=== PATIENT | female | born 1930 | race Caucasian/White ===

== ENCOUNTER 2016-09-23 15:34 | Inpatient (IN) | payer MEDICARE, OTHER ==
[~2016-09-23] VITALS: Ht 149.9 cm; Wt 74.8 kg
[~2016-09-23 15:34] MED LIST: ACET325T16 PO; AMLO5TAB2 PO; ASPI81TA2 PO; BISA5TAB4 PO; DIPH25CA58 PO; DIPH25TA PO; DOCU-27 PO; DONE10TA7 PO; DOXY100T PO; FURO20TA3 PO; GEMF600T3 PO; HYDR-2666 PO; HYDR25TA9 PO; INSU100I27 SQ; INSU100V10 SQ; ISOS20TA4 PO; ISOS30TA4 PO; LISI40TA PO; LUTE20CA2 PO; MELO-150 PO; MULT-245 PO; MULT-300 PO; SIMV20TA3 PO
[2016-09-23] MEDS ORDERED: PANT40TA3 PO (17:48)
[2016-09-23] MEDS ORDERED: PRED-220 PO (17:48)
[2016-09-23] MEDS ORDERED: AMLO5TAB2 PO (17:48)
[2016-09-23] MEDS ORDERED: GEMF600T3 PO (17:48)
[2016-09-23] MEDS ORDERED: INSU100C4 SQ (17:48)
[2016-09-23] MEDS ORDERED: ISOS30TA4 PO (17:48)
[2016-09-23] MEDS ORDERED: FURO20TA3 PO (17:48)
[2016-09-23] MEDS ORDERED: ALLO100T PO (17:48)
[2016-09-23] MEDS ORDERED: DOXY25TA PO (18:24)
[2016-09-23] MEDS ORDERED: SIMV20TA3 PO (18:24)
[2016-09-23] MEDS ORDERED: potassium PO (18:24)
[2016-09-23] MEDS ORDERED: MV,I66.7 PO (18:24)
[2016-09-23] MEDS ORDERED: DEXTROSE 50% 25 GM / 50ML DISP.SYRIN. IV PRN (18:45)
[2016-09-23 19:00] VITALS: BP 135/66
[2016-09-23 19:31] LABS: BASO # 0.1 x10^3/uL (0.0-0.2); BASO % 1 % (0-3); EOS % 0 % (0-3); HEMATOCRIT 39.3 % (36.0-47.0); HEMOGLOBIN 12.3 g/dL (12.0-15.5); LYMPH # 1.1 x10^3/uL (1.0-4.8); LYMPH % 11 % (24-48); MEAN CORPUSCULAR HEMOGLOBIN 28 pg (25-35); MEAN CORPUSCULAR HGB CONC 31 g/dL (31-37); MEAN CORPUSCULAR VOLUME 89 fL (79-100); MONO % 7 % (0-9); NEUT % 81 % (31-73); PLATELET COUNT 217 x10^3/uL (140-400); RED BLOOD COUNT 4.44 x10^6/uL (3.50-5.40); RED CELL DISTRIBUTION WIDTH 20.1 % (11.5-14.5); WHITE BLOOD COUNT 9.8 x10^3/uL (4.0-11.0)
[2016-09-23] MEDS: INSULIN ASPART 300 UNITS/3 ML INSULN.PEN SQ SCH ×2 (19:33→19:35)
[2016-09-23 19:42] LABS: INR 1.2 (0.8-1.1); PROTHROMBIN TIME PATIENT 14.6 SEC (11.7-14.0)
[2016-09-23 19:49] VITALS: BP 155/69
[2016-09-23] MEDS: IV 1/2 NORMAL SALINE 1,000 ML IV SCH (19:53)
[2016-09-23 19:59] LABS: ALBUMIN 3.6 g/dL (3.4-5.0); ALBUMIN/GLOBULIN RATIO 1.2 (1.0-1.7); CALCIUM 9.1 mg/dL (8.5-10.1); CREATININE 1.8 mg/dL (0.6-1.0); GFR 26.7; POTASSIUM 3.3 mmol/L (3.5-5.1); TOTAL BILIRUBIN 0.8 mg/dL (0.2-1.0); TOTAL PROTEIN 6.7 g/dL (6.4-8.2)
[2016-09-23 20:13] LABS: PLT ESTIMATE ADEQUATE (ADEQUATE)
[2016-09-23 20:14] LABS: ANISOCYTOSIS MOD; OVALOCYTES FEW; POLYCHROMASIA SLIGHT
[2016-09-23] MEDS: DOXYLAMINE SUCCINATE 25 MG TABLET PO SCH (21:38)
[2016-09-23] MEDS: SIMVASTATIN 20 MG TABLET PO SCH (21:38)
[2016-09-23] MEDS: DOCUSATE SODIUM 100 MG CAPSULE PO SCH (21:38)
[2016-09-23] MEDS: DONEPEZIL HCL 10 MG TABLET. PO SCH (21:39)
[2016-09-23] MEDS: ASPIRIN 81 MG TAB.CHEW PO SCH (21:39)
[2016-09-23 23:00] VITALS: BP 118/68
[2016-09-23] MEDS: ACETAMINOPHEN 325 MG TABLET. PO PRN (23:36)
[2016-09-24] VITALS (16 sets, daily range): BP systolic 98–188; BP diastolic 32–95
[2016-09-24 05:30] LABS: CALCIUM 9.1 mg/dL (8.5-10.1); CREATININE 1.6 mg/dL (0.6-1.0); GFR 30.6
[2016-09-24 05:33] LABS: POTASSIUM 2.8 mmol/L (3.5-5.1)
[2016-09-24] MEDS ORDERED: POTASSIUM CHLORIDE 20 MEQ TABLET.ER. PO ONE (06:00)
--- NOTE | 2016-09-24 06:30 | CONS ---
DATE OF CONSULTATION: HISTORY OF PRESENT ILLNESS: This is an 86-year-old white female, who is being hospitalized to upgrade permanent pacemaker to a Bi-V AICD. I had first seen this patient in 2013, when she moved from [place]. At that time, she had had open heart surgery. She had no significant complaints. Her EF was normal. She was then hospitalized in January of 2015. She underwent coronary arteriograms at that time. The graft to the LAD and ramus were patent. The vein graft to the circumflex coronary artery was totally occluded. Her EF had dropped from normal to 35%-40%. She was then hospitalized again in May of 2016. At that time, she came in with severe bradycardia. She was placed on an epinephrine drip. Her heart rate and blood pressure improved, but her heart rate came up ____ beats per minute. She clearly needed a pacemaker. A Bi-V pacemaker could not be placed, because Dr. Crabtree, who does the Bi-V pacemaker, was not in town at that time. She needed a pacemaker urgently. A dual-chamber pacemaker was thus placed by Dr. Beltran. During that time, she also had intermittent atrial fibrillation, but she remained predominantly in sinus rhythm. I recently saw her in the office in September. She had gone into atrial fibrillation sometime in July and had remained in it. The patient complained of some shortness of breath. The daughter felt that she had deteriorated significantly recently and would get short of breath with minimal exertion. An echocardiogram showed that her EF had dropped to 20%. She also had severe mitral regurgitation and moderate aortic regurgitation. An EKG showed a wide QRS complex. She was in atrial fibrillation. I talked to the daughter about ____ was one of them was to place a Bi-V pacemaker, which might improve her left ventricular systolic function, and then cardioverter. The daughter and the patient were agreeable. I did talk to them about the AICD. I did not get a definite answer from the patient. At first, she said that if she was going to , she would rather just . She also said "but I want to live to be able to see my children." Finally, she asked me to talk to her daughter and I will have to talk to both of them in the morning. We will then decide as to rather this should be a Bi-V AICD, just a Bi-V pacemaker. She has had renal dysfunction. Her creatinine has been high at times. She was hospitalized the previous night because the creatinine was 1.8 for hydration, because the iodine will have to be used during the insertion of the Bi-V pacemaker. Her present medications are: 1. Novolin insulin 6 units before each meal. 2. Simvastatin 20 mg a day. 3. Donepezil 10 mg at night. 4. Aspirin 81 mg a day. 5. Lutein. 6. Prednisone. 7. Allopurinol 100 mg a day. 8. Potassium. 9. Furosemide 40 mg a day. PHYSICAL EXAMINATION: GENERAL: She was lying in bed, flat. VITAL SIGNS: The heart rate was 70 per minute and regular. The blood pressure was 150/70. LUNGS: Clear. HEART: The heart sounds were normal. There was a grade 1/6 systolic murmur at the apex. There was no S3 or S4. EXTREMITIES: There is no swelling of the legs. IMPRESSION: 1. Ischemic cardiomyopathy with ejection fraction of 20%. 2. Wide QRS complexes. 3. New onset atrial fibrillation. 4. Functioning dual-chamber pacemaker that needs to be upgraded to a Bi-V pacemaker and question of AICD placement. We will first proceed with the changing the pacemaker. After that, she will be placed on anticoagulation, which she is agreed to and when she has been on adequately anticoagulated for 4 weeks. We will try and see if we could cardiovert. This may not be able to be sustained because of her age. However, because she gets short of breath with minimal exertion. She may benefit with cardioversion. In any case, we will see how she reacts to changing her to a Bi-V pacemaker. Thank you for asking me to see her. JOHAN VAIL MD DR: CLAUDIA/peter JOB#: [id number] / [id number]
[2016-09-24] MEDS: INSULIN ASPART 300 UNITS/3 ML INSULN.PEN SQ SCH ×6 (07:30→17:53)
[2016-09-24] MEDS ORDERED: INSULIN ASPART 300 UNITS/3 ML INSULN.PEN SQ SCH ×2 (07:30→08:00)
--- NOTE | 2016-09-24 08:10 | EKG ---
[facility] [address] [place] [address] Test Date: 2016-09-24 Test Time: 07:59:25 Pat Name: EDWARD EASLEY Department: Room: [employer] Gender: F Ophthalmologist: : [id number] Requested By: JOHAN VAIL Order Number: [id number] Reading MD: Measurements Intervals [place] Rate: 87 P: 30 MD: 240 QRS: 128 QRSD: 148 T: -69 QT: 414 QTc: 505 Interpretive Statements SINUS RHYTHM VENTRICULAR PREMATURE COMPLEX(ES) INTERPOLATED ATRIAL PREMATURE COMPLEX(ES) PROLONGED MD INTERVAL ABNORMAL RIGHT AXIS DEVIATION NON SPECIFIC INTRAVENTRICULAR BLOCK QRS(T) CONTOUR ABNORMALITY CONSISTENT WITH ANTERIOR INFARCT PROBABLY OLD CONSISTENT WITH HIGH LATERAL INFARCT PROBABLY OLD ABNORMAL ECG
--- NOTE | 2016-09-24 08:20 | PDOC ---
GENERAL General: admitted for hydration prior to bi-pacemaker conversion today. K+ 2.8 this am and replacement given. has cough productive of lots phlegm for several months now and will ask pulm to see for same while here. Problems: VITAL SIGNS Vital Signs: Vital Signs Date Time Temp Pulse Resp B/P Pulse Ox O2 Delivery O2 Flow Rate FiO2 09/24/16 07:54 Nasal Cannula 2.0 09/24/16 07:15 96.4 88 18 152/84 99 96.4 I & O I & O Intake and Output 09/24/16 07:00 Output Total 175 ml Balance -175 ml Output Urine Total 175 ml ALLERGIES Allergies: Allergies Coded Allergies Type Severity Reaction Last Updated Verified Penicillins Allergy Intermediate 01/26/15 Yes ibuprofen Allergy Intermediate 01/26/15 Yes MEDS Medications: Current Medications Medications (Trade) Dose Ordered Sig/Melisa Start Time Stop Time Status Last Admin Dose Admin Acetaminophen (Tylenol) 650 mg PRN Q6HRS PRN 09/23/16 18:45 09/23/16 23:36 650 MG Allopurinol (Zyloprim) 100 mg DAILY 09/24/16 09:00 Aspirin (Children'S Aspirin) 81 mg HS 09/23/16 21:00 09/23/16 21:39 81 MG Dextrose 12.5 gm PRN Q15MIN PRN 09/23/16 18:45 Docusate Sodium (Colace) 100 mg HS 09/23/16 21:00 09/23/16 21:38 100 MG Donepezil HCl (Aricept) 10 mg HS 09/23/16 21:00 09/23/16 21:39 10 MG Doxylamine Succinate (Unisom) 25 mg HS 09/23/16 21:00 09/23/16 21:38 25 MG Furosemide (Lasix) 30 mg DAILY 09/24/16 09:00 Insulin Aspart (Novolog) 5 units TIDBFRMEAL 09/23/16 19:15 09/23/16 19:33 5 UNITS Multivitamins/ Calcium (Thera M Plus) 1 tab DAILY 09/24/16 09:00 Multivitamins/ Minerals (Ocuvite Lutein) 1 cap DAILY 09/24/16 09:00 Non-Formulary Medication 99 mg DAILY 09/24/16 09:00 09/24/16 09:00 DC Pantoprazole Sodium (Protonix) 40 mg DAILY 09/24/16 09:00 Potassium Chloride (Klor-Con) 40 meq 1X ONCE 09/24/16 06:00 09/24/16 06:01 DC 09/24/16 06:09 40 MEQ Prednisone (Prednisone) 10 mg DAILY 09/24/16 09:00 Simvastatin (Zocor) 20 mg QHS 09/23/16 21:00 09/23/16 21:38 20 MG Sodium Chloride (Iv Sodium Chloride 0.45%) 1,000 ml @ 50 mls/hr Q20H 09/23/16 19:00 09/23/16 19:53 50 MLS/HR LAB Lab: Laboratory Tests Test 09/23/16 17:26 09/23/16 19:20 09/23/16 19:30 09/24/16 03:40 Glucose (Fingerstick) 462mg/dL (70-99) 467mg/dL (70-99) White Blood Count 9.8x10^3/uL (4.0-11.0) Red Blood Count 4.44x10^6/uL (3.50-5.40) Hemoglobin 12.3g/dL (12.0-15.5) Hematocrit 39.3% (36.0-47.0) Mean Corpuscular Volume 89fL (79-100) Mean Corpuscular Hemoglobin 28pg (25-35) Mean Corpuscular Hemoglobin Concent 31g/dL (31-37) Red Cell Distribution Width 20.1% (11.5-14.5) Platelet Count 217x10^3/uL (140-400) Neutrophils (%) (Auto) 81% (31-73) Lymphocytes (%) (Auto) 11% (24-48) Monocytes (%) (Auto) 7% (0-9) Eosinophils (%) (Auto) 0% (0-3) Basophils (%) (Auto) 1% (0-3) Neutrophils # (Auto) 7.9x10^3uL (1.8-7.7) Lymphocytes # (Auto) 1.1x10^3/uL (1.0-4.8) Monocytes # (Auto) 0.7x10^3/uL (0.0-1.1) Eosinophils # (Auto) 0.0x10^3/uL (0.0-0.7) Basophils # (Auto) 0.1x10^3/uL (0.0-0.2) Platelet Estimate Adequate (ADEQUATE) Polychromasia Slight Anisocytosis Mod Ovalocytes Few Prothrombin Time 14.6SEC (11.7-14.0) Prothromb Time International Ratio 1.2 (0.8-1.1) Activated Partial Thromboplast Time 26SEC (24-38) Sodium Level 140mmol/L (136-145) 143mmol/L (136-145) Potassium Level 3.3mmol/L (3.5-5.1) 2.8mmol/L (3.5-5.1) Chloride Level 99mmol/L (98-107) 102mmol/L (98-107) Carbon Dioxide Level 32mmol/L (21-32) 31mmol/L (21-32) Anion Gap 9 (6-14) 10 (6-14) Blood Urea Nitrogen 28mg/dL (7-20) 29mg/dL (7-20) Creatinine 1.8mg/dL (0.6-1.0) 1.6mg/dL (0.6-1.0) Estimated GFR (Cockcroft-Gault) 26.7 30.6 BUN/Creatinine Ratio 16 (6-20) Glucose Level 466mg/dL (70-99) 147mg/dL (70-99) Calcium Level 9.1mg/dL (8.5-10.1) 9.1mg/dL (8.5-10.1) Total Bilirubin 0.8mg/dL (0.2-1.0) Aspartate Amino Transf (AST/SGOT) 48U/L (15-37) Alanine Aminotransferase (ALT/SGPT) 41U/L (14-59) Alkaline Phosphatase 89U/L (46-116) Total Protein 6.7g/dL (6.4-8.2) Albumin 3.6g/dL (3.4-5.0) Albumin/Globulin Ratio 1.2 (1.0-1.7) Test 09/24/16 07:45 Glucose (Fingerstick) 160mg/dL (70-99) PERRY NORTH MD Sep 24, 2016 08:20
--- NOTE | 2016-09-24 08:52 | RAD ---
Portable chest, 09/24/2016: History: Congestive heart failure Comparison is made to a study from 05/12/2016. The patient is rotated to the left. The right-sided central venous catheter has been removed. A left-sided transvenous pacemaker remains in place with 2 leads extending into the right heart. There has been a previous median sternotomy. The heart is generally enlarged. There is calcific plaquing of the aorta. The pulmonary vascularity is at the upper limits of normal. There is minimal left suprahilar and basilar atelectasis/infiltrate. There is pleural thickening in the left lateral costophrenic compatible with a small amount of pleural fluid. This appears to have worsened since the previous study, although patient rotation may be contributing to this appearance. No right-sided pleural fluid is seen. IMPRESSION: 1. Cardiomegaly with borderline vascular congestion. 2. Ongoing or recurrent small left pleural effusion and underlying left basilar atelectasis/infiltrate.
[2016-09-24] MEDS ORDERED: BIOTIN PO SCH (09:00)
[2016-09-24] MEDS: FUROSEMIDE 20 MG TABLET PO SCH (09:00)
[2016-09-24] MEDS ORDERED: FOLIC ACID PO SCH (09:00)
[2016-09-24] MEDS ORDERED: MV IRON MIN PO SCH (09:00)
[2016-09-24] MEDS: PREDNISONE 10 MG TABLET PO SCH (09:00)
[2016-09-24] MEDS: MULTIVITAMIN EYE FORMULA CAPSULE. PO SCH (09:00)
[2016-09-24] MEDS: ALLOPURINOL 100 MG TABLET. PO SCH (09:00)
[2016-09-24] MEDS ORDERED: [UNRECOGNIZED DRUG - OTHER] PO SCH (09:00)
[2016-09-24] MEDS: PANTOPRAZOLE 40 MG TABLET. PO SCH (09:00)
[2016-09-24] MEDS: MULTIVITAMIN with MINERAL TABLET. PO SCH (09:00)
[2016-09-24] MEDS ORDERED: BACITRACIN 50,000 UNIT in IV NORMAL SALINE 250ML 250 ML IRR ONE (10:00)
[2016-09-24] MEDS ORDERED: VANCOMYCIN 1GM IVPB FOR OMNI 250 ML IV ONE (10:00)
[2016-09-24] MEDS ORDERED: IODIXANOL 320 MG/ML 100 ML VIAL. IART ONE (11:00)
[2016-09-24] MEDS ORDERED: LIDOCAINE 2%/EPI 1:100,000 20 ML VIAL. IJ ONE (11:00)
[2016-09-24] MEDS ORDERED: FENTANYL PF 100 MCG/2 ML VIAL. IV ONE (11:15)
[2016-09-24] MEDS ORDERED: MIDAZOLAM HCL/PF 5 MG/5 ML VIAL IV ONE (11:15)
[2016-09-24] MEDS ORDERED: NO ANTICOAGULANT THERAPY. MC PRN (12:00)
--- NOTE | 2016-09-24 12:06 | CARD ---
APPROVED REPORT EXAM Successful [employer] pacemaker upgrade to biventricular ICD/FLAG CAR DRIVER-D INDICATIONS Primary prevention of sudden cardiac and cardiac resynchronization therapy in a patient with se harmony ischemic cardiomyopathy, NYHA class 2 chronic systolic heart failure, bundle branch block PROCEDURE After explaining the risks, benefits, and alternative options, informed consent was obtained from the patient. The patient was brought to the cardiac catheterization lab and the left chest and shoulder were prepp ed and draped in the usual fashion. 30 mL of 2% lidocaine was infiltrated into the skin and subcutaneous tissues for local anesthesia. An incision was made over the previous scar and using blunt dissection and cautery, the capsule was exp osed, opened and the previously placed generator removed. The right ventricular lead was capped. The right atrial lead was interrogated and found to be functioning well. Venous access was obtained in th e left subclavian vein and a 9 [place] coronary sinus sheath was inserted. With the help of contrast i njections using ESTEFANIA 2 catheter within the right atrium, the coronary sinus was engaged and the sheat h advanced into it. Venogram identified the appropriate posterolateral vein for placement of the left ventricular lead. Subsequently, a [employer] quadripolar left ventricular lead model 1458Q/75 serial number [id number] w as advanced under fluoroscopic guidance and the tip was positioned in the posterolateral vein. Follow ing this, venous access was obtained again in the left subclavian vein and 9.5 [place]guill[place] sheath was inse rted. A [employer] bipolar active fixation right ventricular lead model 7120Q/58 serial number [id number] was positioned in the right ventricular apex under fluoroscopy guidance. The leads were secured i nto place and along with the previously placed right atrial lead attached to a [employer] biventricul ar ICD/FLAG CAR DRIVER-D generator model NG5999/40Q serial number [id number]. This was placed in the pocket though s ubsequently closed in 3 layers. Hemostasis was secured. The left ventricular lead showed sensing amplitude of 11.2 mV, impedance of 988 ohms and threshold of 0.9 V. The right ventricular lead showed a sensing amplitude of 8.0 mV, impedance of 568 ohms and a threshold of 0.8 V. Defibrillation thresholds were not measured since patient had underlying atrial f ibrillation and was not adequately anticoagulated. Patient tolerated the procedure well. There were n o immediate complications. CONCLUSION Successful [employer] pacemaker upgrade to biventricular ICD/FLAG CAR DRIVER-D for primary prevention of sudden c ardiac and cardiac resynchronization therapy.
--- NOTE | 2016-09-24 15:37 | RAD ---
Portable chest, 09/24/2016, 3:26 PM: History: Post pacemaker insertion Comparison is made to a study from earlier the same day. There has been a previous median sternotomy. A new pacemaker generator has been inserted. 2 additional transvenous leads have been placed. The heart is enlarged. The pulmonary vascularity is at the upper limits of normal. There is a persistent left basilar opacity obscuring the hemidiaphragm compatible with pleural fluid and underlying atelectasis/infiltrate. The right chest remains clear. There is no evidence of pneumothorax. IMPRESSION: 1. Pacemaker revision as described above. 2. Moderate persistent left basilar opacity. 3. No evidence of pneumothorax.
[2016-09-24] MEDS: ACETAMINOPHEN 325 MG TABLET. PO PRN ×2 (17:44→22:21)
[2016-09-24] MEDS: IV 1/2 NORMAL SALINE 1,000 ML IV SCH (17:45)
[2016-09-24] MEDS: DONEPEZIL HCL 10 MG TABLET. PO SCH (20:44)
[2016-09-24] MEDS: ASPIRIN 81 MG TAB.CHEW PO SCH (20:44)
[2016-09-24] MEDS: DOCUSATE SODIUM 100 MG CAPSULE PO SCH (20:44)
[2016-09-24] MEDS: SIMVASTATIN 20 MG TABLET PO SCH (20:44)
--- NOTE | 2016-09-24 20:44 | PDOC ---
Provider Note Provider Note Bi- V AICD was placed by Dr. Crabtree this morning. The AICD was not checked This would involve giving her electrical current that could convert her from atrial fibrillation to sinus rhythm. Since she is not anticoagulated there is a risk of thromboembolism. She developed a hematoma after the AICD. She cannot be anticoagulated for the electrical cardioversion until this is resolved. Significantly hypokalemic, oral potassium was given. Magnesium was also low and will replace. JOHAN VAIL MD Sep 24, 2016 20:44
[2016-09-24] MEDS: DOXYLAMINE SUCCINATE 25 MG TABLET PO SCH (20:45)
[2016-09-24] MEDS ORDERED: DIPHENHYDRAMINE HCL 25 MG CAPSULE PO ONE (22:30)
[2016-09-24] MEDS ORDERED: VANCOMYCIN 1 GM in IV NORMAL SALINE 250ML 250 ML IV ONE (23:30)
[2016-09-25] VITALS (7 sets, daily range): BP systolic 96–159; BP diastolic 48–72
[2016-09-25 03:51] LABS: CALCIUM 8.7 mg/dL (8.5-10.1); CREATININE 1.5 mg/dL (0.6-1.0); POTASSIUM 3.6 mmol/L (3.5-5.1)
[2016-09-25] MEDS: INSULIN ASPART 300 UNITS/3 ML INSULN.PEN SQ SCH ×6 (08:00→17:35)
[2016-09-25] MEDS ORDERED: MAGNESIUM SULFATE 1GM 100 ML IV ONE (08:00)
[2016-09-25] MEDS: FUROSEMIDE 20 MG TABLET PO SCH (09:04)
[2016-09-25] MEDS: MULTIVITAMIN with MINERAL TABLET. PO SCH (09:05)
[2016-09-25] MEDS: PANTOPRAZOLE 40 MG TABLET. PO SCH (09:05)
[2016-09-25] MEDS: MULTIVITAMIN EYE FORMULA CAPSULE. PO SCH (09:05)
[2016-09-25] MEDS: PREDNISONE 10 MG TABLET PO SCH (09:05)
[2016-09-25] MEDS: ALLOPURINOL 100 MG TABLET. PO SCH (09:05)
--- NOTE | 2016-09-25 09:34 | RAD ---
Indication post pacemaker placement. Assess for potential complication. PA and lateral views of the chest were obtained. Comparison is made to an examination one day earlier. Postoperative changes are noted as well as a defibrillating and tripolar cardiac pacing device. No complication is seen associated with the ICD device. No pneumothorax is seen. There is a left pleural effusion similar to the previous exam. IMPRESSION: Persistent left pleural fluid. No pneumothorax
[2016-09-25] MEDS: IV 1/2 NORMAL SALINE 1,000 ML IV SCH (12:24)
--- NOTE | 2016-09-25 12:34 | PDOC ---
Provider Note Provider Note She bruises very easily. Developed ecchymosis from where the IV was removed. Developed a small hematoma over the pacemaker site. Small amount of bleeding staining the dressing 2 inch into half an inch. Has ecchymosis all over the left chest. Threshold of the right ventricular lead has increased as of yesterday. It was 0.75 V at 0.5 ms and now is that 2 V at 1 ms. The output of the right ventricular lead has been increased to 4 V at 1 ms and she is Bi- V pacing. If we are to cardiovert her she would need to be anticoagulated. Will request hematology to see for possible bleeding disorder. Daughter is quite nervous about being placed on anticoagulation prior to the cardioversion. Renal functions did not deteriorate infarct are better with IV hydration. Consider discharge tomorrow. Daughters want to take her home rather than to a jail facility. JOHAN VAIL MD Sep 25, 2016 12:34
--- NOTE | 2016-09-25 13:03 | PDOC ---
Provider Note Provider Note pacer in , no new probs- labs ok, a little dry from lasix- dc plans per SANDRA Goodrich MD Sep 25, 2016 13:03
--- NOTE | 2016-09-25 16:03 | PDOC ---
Provider Note Provider Note Hem-Onc consult: 1. Ecchymoses due to ASA. No evidence to suggest bleeding disorder. No contraindication for anticoagulation. See dictation. DONA PEREIRA MD Sep 25, 2016 16:03
[2016-09-25] MEDS: ACETAMINOPHEN 325 MG TABLET. PO PRN (17:36)
[2016-09-25] MEDS: ASPIRIN 81 MG TAB.CHEW PO SCH (20:39)
[2016-09-25] MEDS: DONEPEZIL HCL 10 MG TABLET. PO SCH (20:39)
[2016-09-25] MEDS: DOXYLAMINE SUCCINATE 25 MG TABLET PO SCH (20:40)
[2016-09-25] MEDS: DOCUSATE SODIUM 100 MG CAPSULE PO SCH (20:40)
[2016-09-25] MEDS ORDERED: DIPHENHYDRAMINE HCL 25 MG CAPSULE PO PRN (21:00)
[2016-09-25] MEDS: SIMVASTATIN 20 MG TABLET PO SCH (21:04)
[2016-09-26] MEDS: ACETAMINOPHEN 325 MG TABLET. PO PRN (03:15)
[2016-09-26 03:30] VITALS: BP 160/58
[2016-09-26 05:48] LABS: ALBUMIN 2.8 g/dL (3.4-5.0); ALBUMIN/GLOBULIN RATIO 1.1 (1.0-1.7); CALCIUM 8.7 mg/dL (8.5-10.1); CREATININE 1.4 mg/dL (0.6-1.0); GFR 35.7; POTASSIUM 3.1 mmol/L (3.5-5.1); TOTAL BILIRUBIN 0.8 mg/dL (0.2-1.0); TOTAL PROTEIN 5.4 g/dL (6.4-8.2)
[2016-09-26 07:22] VITALS: BP 143/66
[2016-09-26] MEDS: INSULIN ASPART 300 UNITS/3 ML INSULN.PEN SQ SCH ×4 (08:00→12:57)
[2016-09-26] MEDS: PANTOPRAZOLE 40 MG TABLET. PO SCH (09:14)
[2016-09-26] MEDS: PREDNISONE 10 MG TABLET PO SCH (09:14)
[2016-09-26] MEDS: ALLOPURINOL 100 MG TABLET. PO SCH (09:14)
[2016-09-26] MEDS: MULTIVITAMIN EYE FORMULA CAPSULE. PO SCH (09:14)
[2016-09-26] MEDS: MULTIVITAMIN with MINERAL TABLET. PO SCH (09:14)
--- NOTE | 2016-09-26 09:43 | PDOC ---
Provider Note Provider Note VSS, NO NEW PROBS- k+ 3.1 , GIVE 20 MEQ NOW- DC PER SANDRA TELLES MD Sep 26, 2016 09:43
[2016-09-26] MEDS ORDERED: POTASSIUM CHLORIDE 20 MEQ TABLET.ER. PO ONE (10:00)
[2016-09-26] MEDS: FUROSEMIDE 20 MG TABLET PO SCH (10:07)
[2016-09-26 10:24] VITALS: BP 119/55
[2016-09-26] MEDS ORDERED: POTA10TA10 PO (11:54)
[2016-09-26] MEDS ORDERED: POTASSIUM CHLORIDE 10 MEQ TABLET.ER. PO ONE (12:00)
--- NOTE | 2016-09-26 12:44 | HP ---
ADMIT DATE: 09/23/2016 CHIEF COMPLAINT AND HISTORY OF PRESENT ILLNESS: This is an 86-year-old white female admitted for upgrade of her permanent pacemaker to a biventricular AICD because of ongoing troubles with shortness of breath, cough, felt to be due to congestive heart failure with underlying atrial fibrillation, diastolic function with severe mitral regurgitation and wide QRS complex. She also carries a history of some renal insufficiency with diuresis. PAST MEDICAL HISTORY: As that is documented above. In addition, she has diabetes mellitus, hyperlipidemia, history of gout, ____ computer and have been addressed. ALLERGIES: SHE IS ALLERGIC TO PENICILLIN, IBUPROFEN, AND ATENOLOL. SOCIAL HISTORY: She is , nonsmoker, nondrinker, does not use drugs. She lives with her daughter. FAMILY HISTORY: Noncontributory. REVIEW OF SYSTEMS: As mentioned above. PHYSICAL EXAMINATION: GENERAL: She is a well-developed, well-nourished, pleasant white female in no acute distress at rest. VITAL SIGNS: Stable. She is afebrile. HEENT: Unremarkable. NECK: Supple, without any thyromegaly. CHEST: Clear to auscultation and percussion. HEART: Regular on my examination with a grade 1/6 systolic murmur. ABDOMEN: Soft and nontender without hepatosplenomegaly or mass. EXTREMITIES: Without cyanosis, clubbing or edema. NEUROLOGIC: She is intact. IMPRESSION: Ischemic cardiomyopathy with wide QRS complexes and underlying atrial fibrillation with a functioning dual chamber pacemaker that needs to upgraded to a biventricular. PLAN: The patient has been admitted. She will be rehydrated because of her renal insufficiency. Cardiology will see her ____ the morning following admission. PERRY NORTH MD DR: NEERAJ/peter JOB#: [id number] / [id number]
[2016-09-26 13:42] LABS: INR 1.2 (0.8-1.1); PROTHROMBIN TIME PATIENT 14.4 SEC (11.7-14.0)
--- NOTE | 2016-09-26 15:01 | PDOC ---
Provider Note Provider Note She feels well and she and her family are very anxious to go home today. There is a small hematoma over the pacemaker site which is diffuse. There is probably a collection of blood over the medial and superior aspect of the pacemaker measuring about 1 inch into 1 inch that is rather firm. There is no active bleeding and the incision is intact. Light dressing was placed over the pacemaker incision site. We will have home health to check it regularly. The patient and family did not want to wait till tomorrow. Her pacemaker will be interrogated on 09/30 to see if there is any further change in the threshold. Appreciate Dr. Guzman's consult. Anticoagulation will not be initiated at least until after about 2 weeks. JOHAN VAIL MD Sep 26, 2016 15:01
== END 2016-09-26 12:30 | disposition home health service (06) | DRG 227 ==
LOC: 5 NORTH 16:48 → 2 SOUTH 09-24 13:59
PROVIDERS: ADMIT Family Medicine; ATTEND Family Medicine
PROC: 0JH609Z Insertion of Cardiac Resynchronization Defibrillator Pulse Generator into Chest Subcutaneous Tissue and Fascia, Open Approach (ICD-10-PCS; principal; 2016-09-24)
PROC: 02HK3KZ Insertion of Defibrillator Lead into Right Ventricle, Percutaneous Approach (ICD-10-PCS; 2016-09-24)
PROC: 02HL3KZ Insertion of Defibrillator Lead into Left Ventricle, Percutaneous Approach (ICD-10-PCS; 2016-09-24)
PROC: 0JPT0PZ Removal of Cardiac Rhythm Related Device from Trunk Subcutaneous Tissue and Fascia, Open Approach (ICD-10-PCS; 2016-09-24)
DX: I25.5 Ischemic cardiomyopathy (principal); I50.22 Chronic systolic (congestive) heart failure; E11.9 Type 2 diabetes mellitus without complications; E78.5 Hyperlipidemia, unspecified; I48.91 Unspecified atrial fibrillation; M10.9 Gout, unspecified; Z79.82 Long term (current) use of aspirin; Z88.0 Allergy status to penicillin; Z88.8 Allergy status to other drugs, medicaments and biological substances; I45.4 Nonspecific intraventricular block; N18.3 Chronic kidney disease, stage 3 (moderate)
CPT/HCPCS: 33225; 33230; 36415; 71010; 71020; 80048; 80053; 82947; 83735; 85007; 85027; 85384; 85610; 85730; 93005; 93566; C1882; C1892; C1895; C1900; G0378; J1815; J2250; J3010; J3370; J3475; J3490; J7050; J7512; Q0163; J7030

== ENCOUNTER → 2016-10-05 | Outpatient (CLI) | payer MEDICARE, OTHER ==
[2016-09-26 10:24] VITALS: BP 119/55
[~2016-10-05] MED LIST changes: +ALLO100T PO; +APIX2.5T PO; +CARV3.12 PO; +CARV3.122 PO; +DOXY25TA PO; +INSU100C4 SQ; +INSU100V13 SQ; +IPRA3AMP NEB; +LEVO50TA5 PO; +LOSA25TA4 PO; +MV,I66.7 PO; +PANT40TA3 PO; +POTA10TA10 PO; +PRED-220 PO; +potassium PO
--- NOTE | 2016-10-05 09:55 | RAD ---
CT of the chest without contrast, 10/05/2016: History: Pleural effusion Noncontrast scans were obtained as requested. There are has been a previous median sternotomy. A left-sided transvenous pace maker is in place with multiple leads extending into the heart. There is extensive calcific plaquing of the thoracic aorta and its branches including the coronary arteries. The heart is mildly enlarged. No mediastinal adenopathy is seen. There is a small hiatal hernia. There is a moderate sized left pleural effusion with mild to moderate underlying atelectasis in the left lung base. A small amount of fluid extends into the oblique fissure. There is a small amount of right-sided pleural fluid. No significant right lung atelectasis or infiltrate is seen. There is moderate hypertrophic spurring in the spine with bony bridging at multiple levels. The appearance is compatible with DISH. There are also unusual calcifications in the paraspinous muscles posteriorly. IMPRESSION: 1. Moderate sized left pleural effusion with mild underlying atelectasis in the left base. 2. Small right pleural effusion. 3. Cardiomegaly with extensive calcific plaquing of the aorta and coronary arteries. PQRS Compliance Statement: One or more of the following individualized dose reduction techniques were utilized for this examination: 1. Automated exposure control 2. Adjustment of the mA and/or kV according to patient size 3. Use of iterative reconstruction technique
== END | disposition home or self-care (01) ==
LOC: CT 09:02
PROVIDERS: ATTEND Internal Medicine Pulmonary Disease
DX: J90 Pleural effusion, not elsewhere classified (principal); I51.7 Cardiomegaly; I25.10 Atherosclerotic heart disease of native coronary artery without angina pectoris
CPT/HCPCS: 71250

== ENCOUNTER → 2016-10-07 | Outpatient (CLI) | payer MEDICARE, OTHER ==
[2016-09-26 10:24] VITALS: BP 119/55
[~2016-10-07] MED LIST changes: -APIX2.5T PO; +BARIUM SULFATE 40% 148 GM PWD PO ONE; -CARV3.12 PO; -CARV3.122 PO; -INSU100V13 SQ; -IPRA3AMP NEB; -LEVO50TA5 PO; -LOSA25TA4 PO
--- NOTE | 2016-10-07 12:26 | RAD ---
Video dysphasia study, 10/07/2016: History: Dysphagia, persistent cough, possible aspiration The swallowing mechanism was examined. Fluoroscopically in the lateral projection while the patient ingested a variety of food materials mixed with barium. 2.2 minutes of fluoroscopy time was utilized. One fluoroscopic video loop was recorded by a member of the speech Department. The patient demonstrated good oral control of the barium materials. When ingesting the thin liquids there was normal passage of the majority of the barium bolus through the cervical esophagus. When ingesting the thicker materials there was a small amount of vallecular residue intermittently following swallowing. There is only slight contrast coating of the posterior aspect of the epiglottis during the exam. No eugenio aspiration was observed. The patient ingested the barium coated solids without difficulty. IMPRESSION: No evidence of aspiration.
== END | disposition home or self-care (01) ==
LOC: RAD 11:23
PROVIDERS: ATTEND Internal Medicine Pulmonary Disease
DX: R13.10 Dysphagia, unspecified (principal); R05 Cough
CPT/HCPCS: 74230; 92611; G8996; G8997; G8998

== ENCOUNTER → 2016-10-08 | Outpatient (CLI) | payer MEDICARE, OTHER ==
[2016-09-26 10:24] VITALS: BP 119/55
[~2016-10-08] MED LIST changes: -BARIUM SULFATE 40% 148 GM PWD PO ONE
[2016-10-08 12:03] LABS: CALCIUM 9.5 mg/dL (8.5-10.1); CREATININE 1.6 mg/dL (0.6-1.0); GFR 30.6; POTASSIUM 4.4 mmol/L (3.5-5.1)
== END | disposition home or self-care (01) ==
LOC: LAB 10:50
PROVIDERS: ATTEND Specialist
DX: I50.9 Heart failure, unspecified (principal)
CPT/HCPCS: 36415; 80048

== ENCOUNTER 2016-10-12 20:06 | Inpatient (IN) | payer MEDICARE, OTHER ==
[~2016-10-12] VITALS: Ht 152.4 cm; Wt 72.3 kg
[2016-10-12 22:04] LABS: BILIRUBIN,URINE NEGATIVE (NEG); GLUCOSE,URINE >=1000 mg/dL (NEG); NITRITE,URINE NEGATIVE (NEG); PH,URINE 5.5; PROTEIN,URINE 30 mg/dL (NEG-TRACE); UROBILINOGEN,URINE 0.2 mg/dL (0.2 mg/dL)
[2016-10-12 22:15] LABS: BACTERIA,URINE 0 /HPF (0-FEW); SQUAMOUS EPITHELIAL CELL,UR FEW /LPF
[2016-10-12 22:16] LABS: BASO # 0.1 x10^3/uL (0.0-0.2); BASO % 1 % (0-3); EOS % 0 % (0-3); HEMATOCRIT 34.3 % (36.0-47.0); HEMOGLOBIN 11.1 g/dL (12.0-15.5); LYMPH # 1.5 x10^3/uL (1.0-4.8); LYMPH % 14 % (24-48); MEAN CORPUSCULAR HEMOGLOBIN 28 pg (25-35); MEAN CORPUSCULAR HGB CONC 33 g/dL (31-37); MEAN CORPUSCULAR VOLUME 85 fL (79-100); MONO % 10 % (0-9); NEUT % 76 % (31-73); PLATELET COUNT 176 x10^3/uL (140-400); RED BLOOD COUNT 4.03 x10^6/uL (3.50-5.40); RED CELL DISTRIBUTION WIDTH 20.3 % (11.5-14.5); WHITE BLOOD COUNT 11.1 x10^3/uL (4.0-11.0)
[2016-10-12 22:31] LABS: ALBUMIN 3.4 g/dL (3.4-5.0); CALCIUM 9.1 mg/dL (8.5-10.1); CREATININE 1.6 mg/dL (0.6-1.0); DIRECT BILIRUBIN 0.3 mg/dL (0.0-0.2); GFR 30.6; POTASSIUM 4.1 mmol/L (3.5-5.1); TOTAL BILIRUBIN 0.7 mg/dL (0.2-1.0); TOTAL PROTEIN 6.3 g/dL (6.4-8.2)
[2016-10-12 22:33] LABS: ANISOCYTOSIS MOD; PLT ESTIMATE ADEQUATE (ADEQUATE); POLYCHROMASIA SLIGHT; TOXIC GRANULATION SLIGHT; TOXIC VACUOLATION SLIGHT
[2016-10-12] MEDS ORDERED: MORPHINE SULFATE 2 MG/ML DISP.SYRIN. IV PRN (23:15)
[2016-10-12] MEDS ORDERED: ONDANSETRON PF 4 MG/2 ML VIAL. IV PRN (23:15)
[2016-10-12] MEDS ORDERED: INSULIN REGULAR 100 UNIT/ML 10ML VIAL. IV ONE (23:30)
[2016-10-12] MEDS ORDERED: IV NORMAL SALINE 500ML BAG 500 ML IV ONE (23:30)
[2016-10-12] MEDS ORDERED: INSULIN DETEMIR 300 UNITS/3 ML INSULN.PEN. SQ ONE (23:30)
[2016-10-13] VITALS (8 sets, daily range): BP systolic 103–151; BP diastolic 52–75
[2016-10-13] MEDS: IV NORMAL SALINE 1000ML BAG 1,000 ML IV SCH ×3 (00:55→12:17)
--- NOTE | 2016-10-13 02:00 | PHYS DOC ---
Past Medical History Past Medical History: A-Fib, Diabetes-Type II, Hypertension Additional Past Medical Histor: bipass 97 Past Surgical History: Coronary Bypass Surgery, Other Additional Past Surgical Histo: bipass 97, lt nipple and cysts removed from breast, L CHEST PACEMAKER Alcohol Use: Occasionally Drug Use: None Adult General Chief Complaint Chief Complaint: HYPERGLYCEMIA HPI HPI 86-year-old female presenting to the emergency department today with her glycemia. She reports taking NovoLog 3 times for a total of 15 units without relief. She reports her meter reading high. She does not take any long-acting insulin at home. Otherwise she denies any other symptoms other than generalized weakness. She denies headache fevers chills abdominal pain. She did have a pacemaker placed 2 weeks ago. Onset today. Location generalized. Duration intermittent. No alleviating factors present. Review of systems is negative for chest pain shortness of breath nausea vomiting fevers chills cough. All other review of systems is negative unless otherwise noted in history of present illness. Review of Systems Review of Systems SEE ABOVE. Current Medications Current Medications Current Medications Medications (Trade) Dose Ordered Sig/Melisa Start Time Stop Time Status Last Admin Dose Admin Insulin Detemir (Levemir) 20 units 1X ONCE 10/12/16 23:30 10/12/16 23:31 DC 10/12/16 23:33 20 UNITS Insulin Human Regular (Novolin R Vial) 10 unit 1X ONCE 10/12/16 23:30 10/12/16 23:31 DC 10/12/16 23:41 10 UNIT Morphine Sulfate 2 mg 2 mg PRN Q2HR PRN 10/12/16 23:15 10/13/16 23:14 Ondansetron HCl (Zofran) 4 mg PRN Q8HRS PRN 10/12/16 23:15 10/13/16 23:14 Sodium Chloride (Iv Sodium Chloride 0.9% 500ml Bag) 500 ml @ 500 mls/hr 1X ONCE 10/12/16 23:30 10/13/16 00:29 DC 10/12/16 23:33 500 MLS/HR Allergies Allergies Allergies Coded Allergies Type Severity Reaction Last Updated Verified Penicillins Allergy Intermediate 01/26/15 Yes ibuprofen Allergy Intermediate 01/26/15 Yes Physical Exam Physical Exam Constitutional: Well developed, well nourished, no acute distress, non-toxic appearance. HENT: Normocephalic, atraumatic, bilateral external ears normal, oropharynx moist, no oral exudates, nose normal. [] Eyes: PERRLA, EOMI, conjunctiva normal, no discharge. [] Neck: Normal range of motion, no tenderness, supple, no stridor. Chest wall: The patient's left upper chest wall shows incision from previous pacemaker placement that is clean dry and intact. Not erythematous. No cellulitis present. Cardiovascular:Heart rate regular rhythm, no murmur [] Lungs & Thorax: Bilateral breath sounds clear to auscultation Abdomen: Bowel sounds normal, soft, no tenderness, no masses, no pulsatile masses. [] Skin: Warm, dry, no erythema, no rash. Back: No tenderness, no CVA tenderness. [] Extremities: No tenderness, no cyanosis, no clubbing, ROM intact, no edema. Neurologic: Alert and oriented X 3, normal motor function, normal sensory function, no focal deficits noted. [] Psychologic: Affect normal, judgement normal, mood normal. [] Current Patient Data Vital Signs Vital Signs Date Time Temp Pulse Resp B/P Pulse Ox O2 Delivery O2 Flow Rate FiO2 10/12/16 20:25 98.7 76 20 156/80 94 Room Air 98.7 Lab Values Laboratory Tests Test 10/12/16 20:23 10/12/16 22:04 10/12/16 23:19 10/13/16 01:28 Urine Collection Type Unknown Urine Color Yellow Urine Clarity Clear Urine pH 5.5 Urine Specific [place] >=1.030 Urine Protein 30mg/dL (NEG-TRACE) Urine Glucose (UA) >=1000mg/dL (NEG) Urine Ketones (Stick) Negativemg/dL (NEG) Urine Blood Small (NEG) Urine Nitrite Negative (NEG) Urine Bilirubin Negative (NEG) Urine Urobilinogen Dipstick 0.2mg/dL (0.2 mg/dL) Urine Leukocyte Esterase Negative (NEG) Urine RBC 3-5/HPF (0-2) Urine WBC 1-4/HPF (0-4) Urine Squamous Epithelial Cells Few/LPF Urine Bacteria 0/HPF (0-FEW) White Blood Count 11.1x10^3/uL (4.0-11.0) H Red Blood Count 4.03x10^6/uL (3.50-5.40) Hemoglobin 11.1g/dL (12.0-15.5) L Hematocrit 34.3% (36.0-47.0) L Mean Corpuscular Volume 85fL (79-100) Mean Corpuscular Hemoglobin 28pg (25-35) Mean Corpuscular Hemoglobin Concent 33g/dL (31-37) Red Cell Distribution Width 20.3% (11.5-14.5) H Platelet Count 176x10^3/uL (140-400) Neutrophils (%) (Auto) 76% (31-73) H Lymphocytes (%) (Auto) 14% (24-48) L Monocytes (%) (Auto) 10% (0-9) H Eosinophils (%) (Auto) 0% (0-3) Basophils (%) (Auto) 1% (0-3) Neutrophils # (Auto) 8.4x10^3uL (1.8-7.7) H Lymphocytes # (Auto) 1.5x10^3/uL (1.0-4.8) Monocytes # (Auto) 1.0x10^3/uL (0.0-1.1) Eosinophils # (Auto) 0.0x10^3/uL (0.0-0.7) Basophils # (Auto) 0.1x10^3/uL (0.0-0.2) Toxic Granulation Slight Toxic Vacuolation Slight Platelet Estimate Adequate (ADEQUATE) Polychromasia Slight Anisocytosis Mod Sodium Level 136mmol/L (136-145) Potassium Level 4.1mmol/L (3.5-5.1) Chloride Level 99mmol/L (98-107) Carbon Dioxide Level 31mmol/L (21-32) Anion Gap 6 (6-14) Blood Urea Nitrogen 38mg/dL (7-20) H Creatinine 1.6mg/dL (0.6-1.0) H Estimated GFR (Cockcroft-Gault) 30.6 Glucose Level 505mg/dL (70-99) *H Serum Osmolality 308mOsm/Kg (279-304) H Calcium Level 9.1mg/dL (8.5-10.1) Total Bilirubin 0.7mg/dL (0.2-1.0) Direct Bilirubin 0.3mg/dL (0.0-0.2) H Aspartate Amino Transferase (AST) 174U/L (15-37) H Alanine Aminotransferase (ALT) 85U/L (14-59) H Alkaline Phosphatase 156U/L (46-116) H Troponin I Quantitative 0.070ng/mL (0.000-0.055) Total Protein 6.3g/dL (6.4-8.2) L Albumin 3.4g/dL (3.4-5.0) Lipase 341U/L (73-393) Glucose (Fingerstick) 468mg/dL (70-99) H 178mg/dL (70-99) H Laboratory Tests 10/12/16 22:04 Laboratory Tests 10/12/16 22:04 EKG EKG [] EKG shows paced rhythm. Radiology/Procedures Radiology/Procedures [] Course & Med Decision Making Course & Med Decision Making Pertinent Labs and Imaging studies reviewed. (See chart for details) [] 86-year-old female presenting to the emergency department with hyperglycemia. Afebrile with a normal pulse. Pertinent physical exam findings show normal clean dry and intact incision from previous pacemaker placement. Otherwise nontender abdomen. One work obtained which showed dehydration on specific gravity urine. Not suggestive of infection. Chemistry panel elevated glucose. No evidence of acidosis. BUN and creatinine elevated as well. Troponin just above the reference range of normal. The patient was then admitted to our hospital for treatment of hyperglycemia, dehydration further evaluation workup and care. Dragon Disclaimer Dragon Disclaimer This electronic medical record was generated, in whole or in part, using a voice recognition dictation system. Departure Departure Impression: Primary Impression: Hyperglycemia Additional Impression: Dehydration Disposition: ADMITTED INPATIENT Admitting Physician: Perry North Condition: STABLE Referrals: PERRY NORTH MD (PCP) Problem Qualifiers EVELYNE DARLING MD Oct 13, 2016 02:00
[2016-10-13] MEDS ORDERED: ASPIRIN 81 MG TAB.CHEW PO ONE (02:30)
--- NOTE | 2016-10-13 03:26 | ACF ---
Admission Forms Criteria GENERAL ADMISSION CRITERIA (Place 'X' for any and all applicable criteria): Admission is indicated for ANY ONE of the following: [ ]I. Hemodynamic instability as indicated by ANY ONE of the following(1)(2) (3)(4)(5): [ ]a) Vital sign abnormality not readily corrected by appropriate treatment within 12 to 24 hours indicated by ANY ONE of the following: [ ]i) Hypotension [ ]ii) Symptomatic Tachycardia unresponsive to treatment (eg , analgesia, fluids, sedation as indicated) [ ]iii) Orthostatic vital sign changes unresponsive to treatment (eg, fluids) [ ]b) Vital sign abnormality that is severe indicated by ANY ONE of the following: [ ]i) Inadequate perfusion indicated by ANY ONE of the following: [ ]1) Lactic acidosis (greater than 2 mmol/L) [ ]2) New abnormal capillary refill (greater than 3 seconds) [ ]3) Other metabolic acidosis (arterial pH less than 7.35) not otherwise explained [ ]4) Reduced urine output [ ]5) Altered mental status [ ]6) Myocardial Ischemia [ ]v) Mean arterial pressure[A] less than 60 mm Hg [ ]vi) Mean arterial pressure[A] less than 70 mm Hg after 30 minutes of appropriate treatment (eg, fluid resuscitation) [ ]vii) IV inotropic or vasopressor medication required to maintain adequate blood pressure or perfusion [ ]viii) Sustained heart rate greater than 120 beats per minute in adult or child 6 years or older[B]] [ ]II. Hypertension requiring inpatient treatment as indicated by ANY ONE of the following(6)(7)(8): [ ]a) SBP greater than 220 mm Hg or DBP greater than 120 mm Hg despite treatment [ ]b) SBP greater than 140 mm Hg or DBP greater than 100 mm Hg with evidence of acute end organ damage as indicated by ANY ONE of the following: [ ]i) Encephalopathy [ ]ii) Acute renal failure as indicated by new onset of ANY ONE of the following(9)(10)(11)(12)(13): [ ]1) A 3-fold rise in serum creatinine from baseline [ ]2) Serum creatinine greater than 4 mg/dL ( 354 micromoles/L) with acute rise greater than 0.5 mg/dL (44.2 micromoles/L) [ ]3) Reduction of more than 75% in estimated glomerular filtration rate from baseline [ ]4) Estimated glomerular filtration rate less than 35 mL/min/1.73m2 (0.59 mL/sec/1.73m2) in child up to 18 years of age [ ]5) Cessation of urine output indicated by ALL of the following: [ ]A. Adequate volume status [ ]B. Inadequate urine output as indicated by ANY ONE of the following: [ ]a. Urine output less than 0.3 mL/kg/hr for 24 hours [ ]b. Anuria (urine output less than 0.1 mL/kg/hr) for 12 hours [ ]iii) Aortic dissection [ ]iv) Myocardial ischemia [ ]v) Left ventricular heart failure [ ]vi) Retinal hemorrhage [ ]vii) Other significant finding [ ]c) Hypertension in child requiring inpatient treatment as indicated by ALL of the following(14)(15)(16): [ ]i) Outpatient treatment not effective, not available, or not appropriate [ ]ii) SBP or DBP greater than 95th percentile for age [ ]iii) Evidence of acute end organ damage as indicated by ANY ONE of the following: [ ]1) Altered mental status [ ]2) Acute renal failure as indicated by new onset of ANY ONE of the following(9)(10)(11)(12)(13): [ ]A. A 3-fold rise in serum creatinine from baseline [ ]B. Serum creatinine greater than 4 mg/dL (354 micromoles/L) with acute rise greater than 0.5 mg/dL (44.2 micromoles/L) [ ]C. Reduction of more than 75% in estimated glomerular filtration rate from baseline [ ]D. Estimated glomerular filtration rate less than 35 mL/min/1.73m2 (0.59 mL/sec/1.73m2)in child up to 18 years of age [ ]E. Cessation of urine output indicated by ALL of the following: [ ]a. Adequate volume status [ ]b. Inadequate urine output as indicated by ANY ONE of the following: [ ]1) Urine output less than 0.3 mL/kg/hr for 24 hours [ ]2) Anuria (urine output less than 0.1 mL/kg/hr) for 12 hours [ ]3) Severe headache [ ]4) Visual disturbance [ ]5) Retinal hemorrhage [ ]6) Other significant finding [ ]III. Acute cardiac or peripheral ischemia as indicated by ANY ONE of the following: [ ]a) Acute coronary syndrome(17)(18) [ ]b) Acute peripheral ischemia (eg, pulseless, cool, mottled, or cyanotic extremity)(19) [ ]IV. Cardiac arrhythmias or findings of immediate concern indicated by ANY ONE of the following(20)(21): [ ]a) Heart rhythms that are inherently dangerous or unstable indicated by ANY ONE of the following(22)(23)(24): [ ]i) Resuscitated ventricular fibrillation or cardiac arrest [ ]ii) Ventricular escape rhythm [ ]iii) Sustained ventricular tachycardia (30 seconds or more of ventricular rhythm at greater than 100 beats per minute) [ ]iv) Nonsustained ventricular tachycardia and ANY ONE of the following: [ ]1) Suspected cardiac ischemia as cause or consequence of ventricular tachycardia [ ]2) In setting of acute myocarditis [ ]b) Unstable cardiac conduction defects indicated by ANY ONE of the following(24)(25)(26): [ ]i) Type II second-degree atrioventricular block [ ]ii) Third-degree atrioventricular block [ ]iii) New-onset left bundle branch block with suspected myocardial ischemia [ ]c) Any heart rhythm and ANY ONE of the following(22)(23)(27)(28)( 29): [ ] i) Continuous long-term ECG monitoring needed (eg, initiation of drug requiring monitoring for more than 24 hours) [ ] ii) Patient has automatic implanted cardioverter defibrillator that is repeatedly firing, malfunctioning, or in need of immediate adjustment of settings beyond the scope of ambulatory or observation care. [ ]d) Heart rhythms of concern due to ANY ONE of the following: [ ]i) Hypotension [ ]ii) Respiratory distress [ ]iii) Association with other significant symptoms (eg, bradycardia with syncope or ongoing dizziness, supraventricular tachycardia with chest pain) (27)(28) (30) [ ] V. Severe heart failure as indicated by ANY ONE of the following ( 31)(32): [ ]a) Respiratory distress [ ]b) Hypotension [ ]c) Anasarca (refractory to outpatient therapy) [ ]d) Cardiac arrhythmias of immediate concern [ ]e) Myocardial ischemia [ ]. Respiratory abnormalities, including ANY ONE of the following(33)(34) (35)(36): [ ]a) Respiratory rate greater than 30 breaths per minute unresponsive to treatment [A] [ ]b) New saturation of arterial oxygen less than 90% [ ]c) New partial pressure of carbon dioxide greater than 44 mm Hg ( 5.9 kPa) [ ]d) Supplemental oxygen or respiratory treatments needed that are new or not performable at other levels of care [ ]e) New-onset cyanosis [ ]f) Inability to protect airway [ ]g) Chronic lung disease with severe deterioration (not responsive to emergency and observation care treatment as appropriate) as indicated by ANY ONE of the following(34)(36 ): [ ]i) SaO2 5% below baseline in patient with chronic hypoxemia [ ]ii) New requirement for supplemental oxygen to keep SaO2 at baseline or acceptable level [ ]iii) Required supplemental oxygen performable only in acute inpatient setting [ ]iv) Severe airflow or ventilation abnormalities [ ]v) Previously mobile patient unable to walk between rooms [ ]vi Inability to eat or sleep due to dyspnea [ ]vii) Rapid rate of exacerbation onset [ ]viii) Altered mental status ]VII. Severe airflow or ventilation abnormalities (not responsive to emergency and observation care treatment as appropriate) as indicated by ANY ONE of the following(33)(34)(35)(37): [ ]a) PCO2 greater than 42 mm Hg (5.6 kPa) and pH less than 7.35 (new ) [ ]b) Documented PCO2 increased more than 5 mm Hg (0.7 kPa) from disease baseline [ ]c) Airflow measurements [B] less than 60% of previous best or predicted (eg, peak expiratory flow rate less than 300 L/minute) despite intensive emergent treatment [C] [ ]d) Required respiratory treatments that are performable only in acute inpatient setting [ ]VIII. Impending or actual respiratory arrest ( Also use Respiratory Failure GRG for severe respiratory disease and long-term mechanical ventilation patients) [ ]IX. Neurologic abnormalities, including ANY ONE of the following: [ ]a) New findings that suggest ANY ONE of the following: [ ]i) BARREL RAISER infection(38) [ ]ii) Cerebral bleeding, ischemia, or vasospasm(39)(40) [ ]iii) Increased intracranial pressure, hydrocephalus, or cerebral edema(41)(42)(43) [ ]iv) Spinal cord injury(44) [ ]b) Uncontrolled seizures(45) [ ]c) New-onset coma (eg, Darlene coma scale score less than 9) or unexplained abnormal mental status (eg, Darlene coma scale score less than 14) [D](41)(46)(47) [ ]X. New-onset severe neurologic findings requiring inpatient care; examples include(42)(48)(49): [ ]a) Papilledema [ ]b) Cerebral edema [ ]c) Mass effect on CT scan [ ]XI. Suspected acute intra-abdominal process with peritoneal signs, abdominal mass, or similar findings (50)(51)(52) [X]XII. Severe physiologic disorder remaining after emergency or observation level care (as appropriate) as indicated by ANY ONE of the following (53): [X]a) Significant dehydration [ ]b) Diabetic ketoacidosis [X]c) Hyperglycemic hyperosmolar state (eg, osmolality greater than 320 mOsm/kg (mmol/kg) [ ]d) Hypoglycemia [ ]e) Other (new) acid-base disorder with pH less than 7.35 or greater than 7.5(54) [ ]f) Thyroid storm (55) [ ]g) Myxedema coma (55) [ ]XIII. Abdominal abnormalities with ANY ONE of the following(56)(57): [ ]a) Absent bowel sounds with complete ileus [ ]b) Signs of intestinal obstruction or peritonitis [E] [ ]c) Nausea and vomiting that cannot be controlled with outpatient or observation care [ ]XIV. Acute renal failure as indicated by new onset of ANY ONE of the following(9)(10)(11)(12)(13): [ ]a) A 3-fold rise in serum creatinine from baseline [ ]b) Serum creatinine greater than 4 mg/dL (354 micromoles/L) with acute rise greater than 0.5 mg/dL (44.2 micromoles/L) [ ]c) Reduction of more than 75% in estimated glomerular filtration rate from baseline [ ]d) Estimated glomerular filtration rate less than 35 mL/min/ 1.73m2 (0.59 mL/sec/1.73m2) in child up to 18 years of age [ ]e) Cessation of urine output indicated by ALL of the following: [ ]i) Adequate volume status [ ]ii) Inadequate urine output as indicated by ANY ONE of the following: [ ]1) Urine output less than 0.3 mL/kg/hr for 24 hours [ ]2) Anuria (urine output less than 0.1 mL/kg/hr) for 12 hours [ ]XV. Significant uremic complications as indicated by ANY ONE of the following(58)(59)(60): [ ]a) Outpatient therapy is ineffective or not feasible for ANY ONE of the following: [ ]i) Severe heart failure [ ]ii) Severehypertension [ ]iii) Pleural effusion [ ]iv) Pericarditis or pericardial effusion [ ]b) Cardiac arrhythmias of immediate concern [ ]c) Intractable nausea or vomiting [ ]d) Recurrent seizures [ ]e) Encephalopathy [ ]f) Bleeding abnormalities (eg, platelet dysfunction) with active (eg, gastrointestinal) bleeding [ ]g) Dialysis indicated before long-term access or ambulatory arrangements can be made [ ]h) Significant metabolic or electrolyte abnormalities (eg, severe acidosis or hyperkalemia) [ ]XVI. High fever or other high-risk infection situation as indicated by ANY ONE of the following(61)(62)(63)(64): [ ]a) Outpatient and observation care antimicrobial treatment unavailable, not effective, or not appropriate [ ]b) Documented bacteremia [ ]c) Temperature greater than 40.5 degrees C (104.9 degrees F) ( oral) [ ]d) Temperature greater than 39.5 degrees C (103.1 degrees F) ( oral) or less than 36 degrees C (96.8 degrees F) (rectal) that does not respond to e treatment and observation care [ ] XVII. Temperature less than 95 degrees F (35 degrees C)(rectal)(65) [ ] XVIII. Severe nutritional abnormalities as indicated by ALL of the following (66)(67): [ ]a) Inability to tolerate or establish sufficient oral or other enteral nutrition in outpatient setting [ ]b) Parenteral nutrition regimen need that must be implemented on inpatient basis [ ] XIX. Severe electrolyte abnormalities indicated by ALL of the following(68) (69)(70): [ ]a) Electrolytes and associated findings are not as expected for patient baseline or acceptable treatment effects. [ ]b) Severe abnormalities indicated by ANY ONE of the following: [ ]i) Sodium less than 130 mEq/L (mmol/L) (new) [ ]ii)Sodium less than 135 mEq/L (mmol/L) with ANY ONE of the following: [ ]1) Uncorrectable (to near normal or chronic baseline) after trial of outpatient and emergency treatment [ ]2) Altered mental status [ ]3) Seizures [ ]4) Severe medical etiology requiring inpatient management (eg, heart failure, hypovolemia) [ ]iii) Sodium greater than 155 mEq/L (mmol/L) [ ]iv) Sodium greater than 150 mEq/L (mmol/L) with ANY ONE of the following: [ ]1) Uncorrectable (to near normal or chronic baseline) with outpatient and emergency treatment [ ]2) Altered mental status [ ]3) Seizures [ ]4) Severe medical etiology (eg, hypovolemia, diabetes insipidus) [ ]v) Potassium less than 2.5 mEq/L (mmol/L) despite outpatient and emergency treatment [ ]vi) Potassium less than 3 mEq/L (mmol/L) with ANY ONE of the following: [ ]1) Weakness [ ]2) Cardiac abnormality (eg, arrhythmia, conduction disturbance) [ ]3) Cardiac ischemia [ ]4) Ileus [ ]5) Ongoing medical cause requiring inpatient management (eg, acute renal wasting or SIADH) [ ]6) Other severe symptoms [ ]vii) Potassium greater than 6.5 mEq/L (mmol/L) [ ]viii) Potassium greater than 5 mEq/L (mmol/L) with ANY ONE of the following: [ ]1) Uncorrectable (to near normal or chronic baseline) with outpatient and emergency treatment [ ]2) Severe ECG findings [F] [ ]3) Acute worsening of renal failure (creatinine greater than 2.5 mg/dL (221 micromoles/L) or significant elevation for age and size) [ ]4) Severe weakness [ ]5) Severe medical etiology (eg, hemolysis, infection, drug overdose) [ ]ix) Calcium less than 7 mg/dL (1.75 mmol/L) despite outpatient and emergency treatment (72) [ ]x) Calcium less than 8 mg/dL (2 mmol/L) with significant symptoms or findings; examples include(72): [ ]1) Altered mental status [ ]2) Muscle spasms [ ]3) Seizures [ ]4) Breathing difficulty [ ]5) Cardiac abnormality (eg, arrhythmia or conduction disturbance) [ ]xi) Calcium greater than 14 mg/dL (3.5 mmol/L)(72) [ ]xii) Calcium greater than 12 mg/dL (3 mmol/L) with ANY ONE of the following(72): [ ]1) Uncorrectable (to near normal or chronic baseline) with outpatient and emergency treatment [ ]2) Significant dehydration or hypovolemia as indicated by ALL of the following(70)(73)(74): [ ]A. Not resolved with initial treatments [ ]B. Clinically significant dehydration as indicated by ANY ONE of the following: [ ]a. Vomiting refractory to outpatient treatment (ie, precluding oral rehydration) [ ]b. Inability to drink [ ]c. Hypernatremia or other electrolyte abnormality unable to be corrected with outpatient and emergency treatment [ ]d. Failure to remain hydrated with outpatient therapy [ ]e. Reduced urine output [ ]f. Hypotension [ ]g. Serious cause for dehydration requiring acute hospitalization (eg, bowel obstruction, increased intracranial pressure, infectious cause) [ ]h. Child with ANY ONE of the following(75): [ ]1) Severe abdominal tenderness [ ]2) Adequate care not available at home [ ]3) Severe dehydration ( greater than 9% loss of body weight) [ ]4) Significant symptoms or findings; examples include: [ ]A. Altered mental status [ ]B. Cardiac abnormality (eg, arrhythmia, conduction disturbance) [ ]C. Malignant etiology requiring inpatient treatment [ ]xiii) Phosphorus less than 1 mg/dL (0.32 mmol/L) [ ]xiv) Phosphorus less than 1.5 mg/dL (0.48 mmol/L) with ANY ONE of the following: [ ]1) Patient unresponsive to outpatient and emergency treatment [ ]2) Significant symptoms or findings; examples include: [ ]A. Weakness [ ]B. Altered mental status [ ]C. Breathing difficulty [ ]D. Seizures [ ]E. Rhabdomyolysis [ ]xv) Phosphorus greater than 10 mg/dL (3.2 mmol/L) [ ]xvi) Phosphorus greater than 4.5 mg/dL (1.45 mmol/L) (new) with ANY ONE of the following: [ ]1) Severe medical etiology (eg, crush injury, acute renal failure) [ ]2) Associated hypocalcemia with significant findings; examples include: [ ]A. Neurologic symptoms [ ]B. Altered mental status [ ]C. Muscle spasms [ ]D. Seizures [ ]E. Breathing difficulty [ ]F. Cardiac abnormality (eg, arrhythmia, conduction disturbance) [ ]xvii) Magnesium less than 1 mg/dL (0.41 mmol/L) [ ]xviii) Magnesium less than 1.5 mg/dL (0.62 mmol/L) with ANY ONE of the following: [ ]1) Patient unresponsive to outpatient and emergency treatment [ ]2) Associated hypocalcemia with significant findings; examples include: [ ]A. Altered mental status [ ]B. Muscle spasms [ ]C. Seizures [ ]D. Breathing difficulty [ ]E. Cardiac abnormality (eg, arrhythmia , conduction disturbance) [ ]3) Associated hypokalemia (potassium less than 3 mEq/L (mmol/L)) with risk of arrhythmia [ ]xix) Magnesium greater than 4 mEq/L (2 mmol/L) [ ]xx) Magnesium greater than 2.5 mEq/L (1.25 mmol/L) with significant symptoms or findings; examples include: [ ]1) Weakness [ ]2) Altered mental status [ ]3) Cardiac abnormality (eg, arrhythmia, conduction disturbance) [ ]4) Breathing difficulty [ ]5) Severe medical etiology (eg, renal failure, hypovolemia) [ ]xxi) Uric acid greater than 20 mg/dL (1190 micromoles/L)(76) [ ]xxii) Uric acid greater than 8 mg/dL (476 micromoles/L) with significant symptoms or findings of tumor lysis syndrome; examples include(76): [ ]1) Creatinine greater than 1.5 times upper limit of normal [ ]2) Cardiac abnormality (eg, arrhythmia, conduction disturbance) [ ]3) Seizure [ ]XX. Acute blood loss causing significant abnormality as indicated by ANY ONE of the following(77)(78): [ ]a) Hemoglobin less than 10 g/dL (100 g/L) (not baseline) [ ]b) Hematocrit less than 30% (0.30) (not baseline) [ ]c) Repeat hematocrit decreased more than 2% (0.02) [ ]d) Uncontrolled bleeding [ ]XXI. Severe anemia indicated by ANY ONE of the following(78)(79): [ ]a) Altered mental status [ ]b) Chest pain [ ]c) Exertional dyspnea [ ]d) Syncope [ ]e) Other findings suggesting inadequate perfusion [ ]f) Treatment with transfusion or volume replacement is ineffective at resolving ANY ONE of the following [G]: [ ]i) Tachycardia for age [ ]ii) Orthostatic vital sign changes as indicated by ANY ONE of the following(80): [ ]1) Fall in SBP of 20 mm Hg or more 1 to 3 minutes after patient sits or stands from recumbent position [ ]2) Fall in DBP of 10 mm Hg or more 1 to 3 minutes after patient sits or stands from recumbent position [ ]XXII. High-risk low platelet count as indicated by ANY ONE of the following( 81)(82): [ ]a) Severe or life-threatening bleeding (eg, intracranial, major gastrointestinal, or extensive mucosal bleeding), with any reduced platelet count [ ]b) Platelet count less than 20,000/mm3 (20 x109/L) with any active bleeding [ ]c) Platelet count less than 10,000/mm3 (10 x109/L) with minor purpura or petechiae [ ]d) Platelet count less than 5000/mm3 (5 x109/L) [ ]e) Low platelet count with hemolytic anemia [ ]XXIII. Disseminated intravascular coagulation(77)(83) [ ]XXIV. Severe adverse drug or systemic toxin reaction requiring inpatient treatment; examples include(84)(85): [ ]a) Serotonin syndrome(86) [ ]b) Neuroleptic malignant syndrome(86) [ ]c) Cholinergic syndrome with severe symptoms (eg, bronchorrhea, weakness, mental status changes, seizures) [ ]d) Sympathetic syndrome with severe symptoms (eg, seizures, mental status changes, cardiac dysrhythmias) [ ]e) Anticholinergic syndrome [ ]XXV. Severe pain requiring acute inpatient management as indicated by ALL of the following (87)(88)(89): [ ]a) Continuous or frequent (eg, every 2 to 4 hours) parenteral analgesics required [H] [ ]b) Rapid improvement expected from treatment or acute intervention (eg, surgery, anesthesia procedure) [ ]XXVI.Severe behavioral health issues judged unmanageable at a lower level of care (eg, residential) in a patient who is ANY ONE of the following(91) [ ]a) Acutely suicidal [ ]b) A danger to self (eg, self-mutilating or suicidal behavior) [ ]c) A danger to others (eg, assaultive or homicidal behavior) [ ]d) Incapacitated because of grave disability (eg, inability to provide for self at lower level of care) (92) [ ]XXVII. Inpatient monitoring needed; examples include(1)(3)(87)(93)(94)(95)(96 ): [ ]a) Vital signs, neurologic signs, or vascular checks more frequently than every 4 hours [ ]b) Cardiac or respiratory monitoring beyond the scope (eg, over 24 hours) of observation care [ ]c) Pulmonary artery catheter monitoring [ ]d) Suspected compartment syndrome(97) (98) [ ]e) Cerebral bleeding, hydrocephalus, or vasospasm monitoring [ ]f) Increased intracranial pressure or cerebral edema monitoring [ ]g) monitoring [ ]XXVIII. Treatment requiring inpatient care; examples include: [ ]a) IV fluid to replace significant ongoing losses (greater than 3 L/m2 per day)(53) [ ]b) High concentration oxygen (greater than 40%)(33)(99)(100) [ ]c) Frequent respiratory therapy (more frequently than every 4 hours) to maintain airflow rates greater than 60% of baseline(33)(99)(100) [ ]d) Epidural analgesia(87) [ ]e) IV anticoagulation, vasoactive, or antiarrhythmic medication(19 )(23) [ ]f) Acute thrombolytics (generally require 24 hours of observation )(101)(102) [ ]XXIX. Emergency procedures needed; examples include: [ ]a) Emergency inpatient surgery [ ]b) Temporary pacemaker placement(103) [ ]c) Chest tube placement with active evacuation (eg, suction, drainage)(104) [ ]d) Emergent cardioversion(105) [ ]e) Emergent cardiac or vascular procedures (eg, cardiac catheterization, angioplasty) (17)(18) [ ]f) Emergent dialysis access placement and institution(10)(106) [ ]g) Emergent pericardiocentesis(107) [ ]h) Emergent plasmapheresis or leukapheresis(83) [ ]i) Emergent tracheostomy The original [employer] content created by [employer] has been revised. The portions of the content which have been revised are identified through the use of italic text or in bold, and [employer] has neither reviewed nor approved the modified material. All other unmodified content is copyright [employer]. Please see references footnoted in the original [employer] edition 2016 Admission Criteria Met?: Yes JOHN FERNANDEZ Oct 13, 2016 03:26
[2016-10-13] MEDS ORDERED: DEXTROSE 50% 25 GM / 50ML DISP.SYRIN. IV PRN (07:45)
[2016-10-13] MEDS ORDERED: DEXTROSE 50% 25 GM / 50ML DISP.SYRIN. IV ONE (07:45)
--- NOTE | 2016-10-13 07:53 | RAD ---
EXAM: Chest one view. HISTORY: Hyperglycemia, concern for infiltrate. COMPARISON: 09/25/2016. FINDINGS: A frontal view of the chest is obtained. There are changes of coronary artery bypass grafting. A left-sided pacemaker/defibrillator has its leads in the right atrium, right ventricle and a left cardiac vein. Blunting of the left costophrenic angle is consistent with a small pleural effusion. Left basilar opacities appear chronic indicate a combination of scarring and atelectasis associated with the effusion. A definitive new infiltrate is not seen. There is no pneumothorax. The heart is mildly enlarged. There are atherosclerotic calcifications of the aorta. There is a chronic fracture deformity of the left distal clavicle. IMPRESSION: 1. Small left pleural effusion with left basilar atelectasis and scarring. No clear acute infiltrate is seen. 2. Mild cardiomegaly.
[2016-10-13 08:25] LABS: BASO # 0.1 x10^3/uL (0.0-0.2); BASO % 1 % (0-3); EOS % 2 % (0-3); HEMATOCRIT 33.3 % (36.0-47.0); HEMOGLOBIN 10.5 g/dL (12.0-15.5); LYMPH # 1.8 x10^3/uL (1.0-4.8); LYMPH % 20 % (24-48); MEAN CORPUSCULAR HEMOGLOBIN 28 pg (25-35); MEAN CORPUSCULAR HGB CONC 31 g/dL (31-37); MEAN CORPUSCULAR VOLUME 88 fL (79-100); MONO % 9 % (0-9); NEUT % 69 % (31-73); PLATELET COUNT 165 x10^3/uL (140-400); RED BLOOD COUNT 3.77 x10^6/uL (3.50-5.40); RED CELL DISTRIBUTION WIDTH 20.4 % (11.5-14.5)
[2016-10-13] MEDS ORDERED: ACETAMINOPHEN 325 MG TABLET. PO PRN (08:45)
[2016-10-13 08:47] LABS: CALCIUM 8.8 mg/dL (8.5-10.1); CREATININE 1.3 mg/dL (0.6-1.0); GFR 38.9; POTASSIUM 3.5 mmol/L (3.5-5.1)
--- NOTE | 2016-10-13 08:48 | PDOC ---
Provider Note Provider Note [id number] SANDRA LANG MD Oct 13, 2016 08:48
--- NOTE | 2016-10-13 09:10 | EKG ---
[facility] [address] [place] [id number] Test Date: 2016-10-12 Test Time: 22:07:46 Pat Name: EDWARD EASLEY Department: Room: Gender: F [employer]: : [id number] Requested By: EVELYNE DARLING Order Number: [id number] Reading MD: Measurements Intervals [place] Rate: 80 P: NE: QRS: 165 QRSD: 100 T: -6 QT: 414 QTc: 481 Interpretive Statements ACCELERATED JUNCTIONAL RHYTHM ABNORMAL RIGHT AXIS DEVIATION LVH WITH REPOLARIZATION ABNORMALITY PROLONGED QT RI6.01 Unconfirmed report Compared to ECG 09/24/2016 07:59:25 Accelerated junctional rhythm now present Left ventricular hypertrophy now present Early repolarization now present Prolonged QT interval now present Sinus rhythm no longer present First degree AV block no longer present Myocardial infarct finding no longer present
--- NOTE | 2016-10-13 09:13 | HP ---
ADMIT DATE: CHIEF COMPLAINT: High blood sugar. HISTORY OF PRESENT ILLNESS: An 86-year-old white female patient of ____ Devin has a history of mild diabetes, takes NovoLog 5 units with each meal. Recently, her oral intake has increased and her blood sugars have been going high and she came to the ER. She was given Levemir 20 units as a single dose and the blood sugar went from over 500 to around 40. She is feeling better now, eating and has had some IV glucose and is more comfortable. PAST MEDICAL HISTORY: Well documented in the old record. ALLERGIES: PENICILLIN NOTED. She has had a pacemaker placed recently per Dr. Badillo and has never been on oral diabetic medications. SOCIAL HISTORY: Lives at home with family. Nonsmoker, nondrinker, not physically active. FAMILY HISTORY: Unremarkable. REVIEW OF SYSTEMS: No other problems. OBJECTIVE: ENT: All within normal limits. NECK: No masses, nodes or bruits. LUNGS: Clear. CARDIOVASCULAR: Regular rate. No irregular beat or murmur. ABDOMEN: Obese, soft and nontender. EXTREMITIES: Decreased skin turgor, decreased pedal pulses. No joint or skin lesions. NEUROLOGIC: Physiologic. ASSESSMENT: 1. Hyperglycemia secondary to inadequate insulin use. She is now mildly hypoglycemic after low dose Levemir. 2. Some component of chronic kidney disease 3 with mild renal failure likely just secondary to Lasix. PLAN: Low dose Levemir as discussed with family. We will discontinue the IV saline. Hold the Lasix and follow renal function. Consultations obtained as well. SANDRA LANG MD DR: CHERY/peter JOB#: [id number] / [id number]
[2016-10-13] MEDS: PANTOPRAZOLE 40 MG TABLET. PO SCH (09:25)
[2016-10-13] MEDS: POTASSIUM CHLORIDE 10 MEQ TABLET.ER. PO SCH (09:25)
[2016-10-13] MEDS: PREDNISONE 10 MG TABLET PO SCH (09:25)
[2016-10-13] MEDS: ALLOPURINOL 100 MG TABLET. PO SCH (09:25)
[2016-10-13] MEDS ORDERED: LOSA25TA4 PO (09:46)
[2016-10-13] MEDS ORDERED: CARV3.12 PO (09:46)
--- NOTE | 2016-10-13 10:28 | PDOC ---
Provider Note Provider Note dictated see orders AUSTIN SWANN MD Oct 13, 2016 10:28
--- NOTE | 2016-10-13 10:56 | CONS ---
DATE OF CONSULTATION: ATTENDING PHYSICIAN: Dr. Matthias Peguero. REASON FOR CONSULTATION: Dyspnea, pleural effusion, and abnormal chest x-ray. HISTORY OF PRESENT ILLNESS: The patient is an 86-year-old female who has a history of grade 2 diastolic dysfunction and history of moderate to severe mitral regurgitation. She also has atrial fibrillation. She presented to the hospital with complaints of lethargy. She was found to have hyperglycemia. The patient's family including both daughters was here, and they said that she has been chronically short of breath for the last month or so. Denies any chronic cough. No chest pains. No increased leg edema. She had a CT of the chest 2 weeks ago which was reviewed by me, and it shows [id number] left-sided pleural effusion. Her chest x-ray was reviewed and upon my review it shows mild vascular congestion and volume loss of the left lower lobe which could be related to small effusion versus atelectasis. The family states that she was scheduled for an outpatient thoracentesis. Consultation requested for further evaluation and management. PAST MEDICAL HISTORY: History of atrial fibrillation, history of type 2 diabetes, history of hypertension, history of moderate to severe MR, and history of grade 2 diastolic dysfunction. PAST SURGICAL HISTORY: Include bypass surgery, cyst removed from the breast, and pacemaker. REVIEW OF SYSTEMS: A twelve-point system was obtained. Pertinent positives discussed in history of present illness, otherwise noncontributory. All systems that were negative were reviewed as well. ALLERGIES: PENICILLIN AND IBUPROFEN. MEDICATIONS: Reviewed as listed in the MRAD. She is currently on IV fluids, which has been stopped. SOCIAL HISTORY: She smoked 3 packs per day for 30 years before quitting over 20 years ago. PHYSICAL EXAMINATION: GENERAL: She is sleepy. She is on room air with pulse oximetry of 98%. She has a stable blood pressure and afebrile. HEENT: Sclerae nonicteric. NECK: Supple. LUNGS: Slightly diminished breath sounds at base. CARDIOVASCULAR: S1. ABDOMEN: Soft. EXTREMITIES: With trace edema. LABORATORY DATA: Reviewed. White cell count is down to 9.0, hemoglobin 10.5, and platelets are 165. BUN is 33 and a creatinine of 1.3. This is improved since yesterday when creatinine was 1.6. Blood sugar initially was 567, and it is down to 178. Troponin level is 0.09. Her bicarbonate is 31. IMPRESSION: 1. Chronic exertional dyspnea, suspect secondary to ongoing mild congestive heart failure secondary to moderate to severe mitral regurgitation and grade 2 diastolic dysfunction. In addition, she has a small to moderate pleural effusion best seen on the CT of the chest 2 weeks ago. It is difficult to assess any increase in the effusion based on the chest x-ray, and I will obtain followup CT of the chest before deciding the need for thoracentesis. 2. Moderate to severe mitral regurgitation and grade 2 diastolic dysfunction, and this is one of the etiologies of her chronic exertional dyspnea. 3. Renal insufficiency secondary to prerenal azotemia, improved. I would avoid further IV fluids due to risk of congestive heart failure. 4. History of tobaccoism, up to 3 packs per day for 30 years, suspect underlying chronic obstructive pulmonary disease. RECOMMENDATIONS: 1. Discussed with the patient's family. At this time, I will use p.r.n. oxygen. Currently, she is on room air. 2. Followup CT of the chest without contrast to assess the size of the effusion and to see if it needs to be drained. I did inform them that we will always have to weigh the risk and benefits of thoracentesis especially in the setting of normal oxygen saturation while on room air. 3. Cardiology to address her valvular heart disease and diastolic dysfunction. 4. Monitor blood sugar per PCP. 5. Further recommendations to follow after review of the CT of the chest. AUSTIN SWANN MD DR: SHELDON/peter JOB#: [id number] / [id number]
--- NOTE | 2016-10-13 13:09 | RAD ---
EXAM: CT of the chest without intravenous contrast. HISTORY: Shortness of breath, pleural effusion. TECHNIQUE: Computed tomography of the chest was performed without intravenous contrast. COMPARISON: 10/05/2016. FINDINGS: Images of the upper abdomen reveal a 7 mm dense nodule in the left kidney consistent with a small hyperdense cyst. This is unchanged over the short interval. Bone windows reveal no suspicious lesions. There is syndesmosis along the anterior aspect of the mid thoracic spine. Some of the posterior elements are also ankylosed. There are calcifications within the paraspinous muscles in the mid thoracic spine which are atrophic. There are no pathologically enlarged mediastinal or axillary lymph nodes. There is no pericardial effusion. The heart is mildly enlarged. A left-sided pacemaker/defibrillator has its leads in the right atrium, right ventricle and a left cardiac vein. There are changes of coronary artery bypass grafting. There are diffuse moderate to severe aortic atherosclerotic calcifications. There is a small to moderate left pleural effusion, not clearly changed since the prior study. There is associated compressive atelectasis of the left lower lobe and lingula. There is a small right pleural effusion. There are no confluent infiltrates. IMPRESSION: 1. Small to moderate left and small right pleural effusions with associated atelectasis. 2. Mild cardiomegaly. 3. A 7 mm dense nodule on the left kidney is indeterminate but most likely a hemorrhagic/proteinaceous cyst. Follow-up sonography could be performed in 6 months if there is persistent concern. *One or more of the following individualized dose reduction techniques were utilized for this examination: 1. Automated exposure control. 2. Adjustment of the mA and/or kV according to patient size. 3. Use of iterative reconstruction technique.
[2016-10-13] MEDS ORDERED: FUROSEMIDE 40 MG/4 ML VIAL IVP ONE ×2 (14:30→21:30)
[2016-10-13] MEDS ORDERED: INSULIN DETEMIR 300 UNITS/3 ML INSULN.PEN. SQ SCH (21:00)
[2016-10-13] MEDS ORDERED: DONEPEZIL HCL 10 MG TABLET. PO SCH (21:00)
[2016-10-13] MEDS ORDERED: ASPIRIN 81 MG TAB.CHEW PO SCH (21:00)
[2016-10-13] MEDS ORDERED: traZODone 50 MG TABLET. PO SCH (21:30)
--- NOTE | 2016-10-13 21:30 | PDOC ---
Provider Note Provider Note Consult dictated. Ischemic cardiomyopathy with an ejection fraction of 20%. Acute on chronic systolic dysfunction congestive heart failure. Atrial fibrillation of recent onset July 2016. Recent placement of a bi-V AICD September 2016. Chronic kidney disease. Needs diuretics. I would like to diurese her more vigorously during this hospitalization to see if it would relieve her symptoms. This could be done with a close eye on her orthostatic blood pressures and creatinine. With [id number] history of smoking also consider underlying COPD and place on nebulized bronchodilators. Thank you Dr. Peguero for asking me to see her. JOHAN VAIL MD Oct 13, 2016 21:30
[2016-10-14 03:55] VITALS: BP 137/57
[2016-10-14 05:55] LABS: CALCIUM 8.7 mg/dL (8.5-10.1); CREATININE 1.2 mg/dL (0.6-1.0); GFR 42.7; MAGNESIUM 1.9 mg/dL (1.8-2.4); POTASSIUM 3.5 mmol/L (3.5-5.1)
[2016-10-14 05:56] LABS: CHOLESTEROL/HDL RATIO 1.5
[2016-10-14 07:00] VITALS: BP 138/56
[2016-10-14] MEDS: IPRATRPIUM/ALBUTEROL 0.5/2.5MG 3 ML NEBU. NEB SCH ×2 (07:36→13:05)
[2016-10-14] MEDS ORDERED: FUROSEMIDE 40 MG/4 ML VIAL IVP ONE (08:00)
[2016-10-14 09:04] VITALS: BP 121/52
[2016-10-14 09:07] VITALS: BP 133/53
[2016-10-14] MEDS: PANTOPRAZOLE 40 MG TABLET. PO SCH (09:15)
[2016-10-14] MEDS: ALLOPURINOL 100 MG TABLET. PO SCH (09:15)
[2016-10-14] MEDS: POTASSIUM CHLORIDE 10 MEQ TABLET.ER. PO SCH (09:15)
[2016-10-14] MEDS: PREDNISONE 10 MG TABLET PO SCH (09:15)
--- NOTE | 2016-10-14 10:20 | PDOC ---
PROGRESS NOTES Subjective Subjective Pt awake and pleasant in conversation this am. States she is ready to return home. Pt states she has been eating and drinking well with good output. States her energy level has returned. Objective Objective Pt awake and alert. NAD. VSS. Afebrile. Lung sounds diminished. Resp even and unlabored. Pt on RA not requiring supplemental O2. Heart with RRR. No murmurs. Vital Signs Date Time Temp Pulse Resp B/P Pulse Ox O2 Delivery O2 Flow Rate FiO2 10/14/16 09:07 80 133/53 10/14/16 07:38 93 Room Air 10/14/16 07:00 18 10/14/16 03:55 98.4 98.4 Intake and Output 10/14/16 07:00 Intake Total 800 ml Output Total 1475 ml Balance -675 ml Intake Oral 800 ml Output Urine Total 1475 ml # Bowel Movements 1 Assessment Assessment Problems Medical Problems: (1) Dehydration Status: Acute (2) Hyperglycemia Status: Acute (3) Hyperglycemia Status: Acute Plan Plan of Care 1. Diabetes, insulin dependent, noncontrolled -Hyperglycemic upon admission then hypoglycemia after 20U of Levemir administered. Glucose gtt started. -FSBS 186 3/8 pm and 86 this am following Levemir 10U at hs -Pt will return home on Levemir 5U qpm and Novolog sliding scale with meals. 2. CKD II-III -Lasix held upon admission -Creat 1.6 upon admission, 1.2 this am 3. Pleural Effusion -CXR: vascular congestion and volume loss of the left lower lobe which could be related to small effusion versus atelectasis. -Pulmonology consulting -CT two weeks ago --CT 10/13: 1. Small to moderate left and small right pleural effusions with associated atelectasis. 2. Mild cardiomegaly. 3. A 7 mm dense nodule on the left kidney is indeterminate but most likely a hemorrhagic/proteinaceous cyst. Follow-up sonography could be performed in 6 months if there is persistent concern. 4. Hypothyroid -TSH 22 -Synthroid 100mcg, 1 tablet qd -Recheck TSH in 6 weeks 5. CHF with Ischemic cardiomyopathy -Cardiology consulted -EF 20% Med hx sig: Atrial fibrillation of recent onset July 2016 with placement of a bi-V AICD September 2016. Pt may Dc home today in [facility] care. Levemir called to pharmacy. Pt will dose 5U qpm. Pt instructed on sliding scale short acting insulin at mealtimes. ADA diet. Activity as tolerated. Pt to f/u in our office within 1 week. Discussed Dc plans with daughter whom stated understanding. Comment Review of Relevant I have reviewed the following items hilary (where applicable) has been applied. Labs Laboratory Tests Test 10/12/16 20:23 10/12/16 20:28 10/12/16 22:04 10/12/16 23:19 Urine Collection Type Unknown Urine Color Yellow Urine Clarity Clear Urine pH 5.5 Urine Specific [place] >=1.030 Urine Protein 30mg/dL (NEG-TRACE) Urine Glucose (UA) >=1000mg/dL (NEG) Urine Ketones (Stick) Negativemg/dL (NEG) Urine Blood Small (NEG) Urine Nitrite Negative (NEG) Urine Bilirubin Negative (NEG) Urine Urobilinogen Dipstick 0.2mg/dL (0.2 mg/dL) Urine Leukocyte Esterase Negative (NEG) Urine RBC 3-5/HPF (0-2) Urine WBC 1-4/HPF (0-4) Urine Squamous Epithelial Cells Few/LPF Urine Bacteria 0/HPF (0-FEW) Glucose (Fingerstick) 567mg/dL (70-99) 468mg/dL (70-99) White Blood Count 11.1x10^3/uL (4.0-11.0) Red Blood Count 4.03x10^6/uL (3.50-5.40) Hemoglobin 11.1g/dL (12.0-15.5) Hematocrit 34.3% (36.0-47.0) Mean Corpuscular Volume 85fL (79-100) Mean Corpuscular Hemoglobin 28pg (25-35) Mean Corpuscular Hemoglobin Concent 33g/dL (31-37) Red Cell Distribution Width 20.3% (11.5-14.5) Platelet Count 176x10^3/uL (140-400) Neutrophils (%) (Auto) 76% (31-73) Lymphocytes (%) (Auto) 14% (24-48) Monocytes (%) (Auto) 10% (0-9) Eosinophils (%) (Auto) 0% (0-3) Basophils (%) (Auto) 1% (0-3) Neutrophils # (Auto) 8.4x10^3uL (1.8-7.7) Lymphocytes # (Auto) 1.5x10^3/uL (1.0-4.8) Monocytes # (Auto) 1.0x10^3/uL (0.0-1.1) Eosinophils # (Auto) 0.0x10^3/uL (0.0-0.7) Basophils # (Auto) 0.1x10^3/uL (0.0-0.2) Toxic Granulation Slight Toxic Vacuolation Slight Platelet Estimate Adequate (ADEQUATE) Polychromasia Slight Anisocytosis Mod Sodium Level 136mmol/L (136-145) Potassium Level 4.1mmol/L (3.5-5.1) Chloride Level 99mmol/L (98-107) Carbon Dioxide Level 31mmol/L (21-32) Anion Gap 6 (6-14) Blood Urea Nitrogen 38mg/dL (7-20) Creatinine 1.6mg/dL (0.6-1.0) Estimated GFR (Cockcroft-Gault) 30.6 Glucose Level 505mg/dL (70-99) Serum Osmolality 308mOsm/Kg (279-304) Calcium Level 9.1mg/dL (8.5-10.1) Total Bilirubin 0.7mg/dL (0.2-1.0) Direct Bilirubin 0.3mg/dL (0.0-0.2) Aspartate Amino Transf (AST/SGOT) 174U/L (15-37) Alanine Aminotransferase (ALT/SGPT) 85U/L (14-59) Alkaline Phosphatase 156U/L (46-116) Troponin I Quantitative 0.070ng/mL (0.000-0.055) Total Protein 6.3g/dL (6.4-8.2) Albumin 3.4g/dL (3.4-5.0) Lipase 341U/L (73-393) Test 10/13/16 01:28 10/13/16 02:45 10/13/16 03:59 10/13/16 06:47 Glucose (Fingerstick) 178mg/dL (70-99) 93mg/dL (70-99) 44mg/dL (70-99) Troponin I Quantitative 0.090ng/mL (0.000-0.055) Test 10/13/16 07:22 10/13/16 08:02 10/13/16 08:15 10/13/16 12:06 Glucose (Fingerstick) 71mg/dL (70-99) 115mg/dL (70-99) 98mg/dL (70-99) White Blood Count 9.0x10^3/uL (4.0-11.0) Red Blood Count 3.77x10^6/uL (3.50-5.40) Hemoglobin 10.5g/dL (12.0-15.5) Hematocrit 33.3% (36.0-47.0) Mean Corpuscular Volume 88fL (79-100) Mean Corpuscular Hemoglobin 28pg (25-35) Mean Corpuscular Hemoglobin Concent 31g/dL (31-37) Red Cell Distribution Width 20.4% (11.5-14.5) Platelet Count 165x10^3/uL (140-400) Neutrophils (%) (Auto) 69% (31-73) Lymphocytes (%) (Auto) 20% (24-48) Monocytes (%) (Auto) 9% (0-9) Eosinophils (%) (Auto) 2% (0-3) Basophils (%) (Auto) 1% (0-3) Neutrophils # (Auto) 6.3x10^3uL (1.8-7.7) Lymphocytes # (Auto) 1.8x10^3/uL (1.0-4.8) Monocytes # (Auto) 0.8x10^3/uL (0.0-1.1) Eosinophils # (Auto) 0.1x10^3/uL (0.0-0.7) Basophils # (Auto) 0.1x10^3/uL (0.0-0.2) Sodium Level 141mmol/L (136-145) Potassium Level 3.5mmol/L (3.5-5.1) Chloride Level 104mmol/L (98-107) Carbon Dioxide Level 30mmol/L (21-32) Anion Gap 7 (6-14) Blood Urea Nitrogen 33mg/dL (7-20) Creatinine 1.3mg/dL (0.6-1.0) Estimated GFR (Cockcroft-Gault) 38.9 Glucose Level 111mg/dL (70-99) Hemoglobin A1c 10.7% (4.8-5.6) Calcium Level 8.8mg/dL (8.5-10.1) Troponin I Quantitative 0.079ng/mL (0.000-0.055) Test 10/13/16 17:24 10/13/16 19:27 10/13/16 20:57 10/14/16 04:53 Glucose (Fingerstick) 94mg/dL (70-99) 191mg/dL (70-99) 184mg/dL (70-99) Sodium Level 142mmol/L (136-145) Potassium Level 3.5mmol/L (3.5-5.1) Chloride Level 105mmol/L (98-107) Carbon Dioxide Level 30mmol/L (21-32) Anion Gap 7 (6-14) Blood Urea Nitrogen 35mg/dL (7-20) Creatinine 1.2mg/dL (0.6-1.0) Estimated GFR (Cockcroft-Gault) 42.7 Glucose Level 50mg/dL (70-99) Calcium Level 8.7mg/dL (8.5-10.1) Magnesium Level 1.9mg/dL (1.8-2.4) Triglycerides Level 65mg/dL (0-150) Cholesterol Level 131mg/dL (0-200) LDL Cholesterol, Calculated 32mg/dL (0-100) VLDL Cholesterol, Calculated 13mg/dL (0-40) HDL Cholesterol 86mg/dL (40-60) Cholesterol/HDL Ratio 1.5 Thyroid Stimulating Hormone (TSH) 22.652uIU/mL (0.358-3.74) Test 10/14/16 07:49 10/14/16 08:10 Glucose (Fingerstick) 62mg/dL (70-99) 86mg/dL (70-99) Laboratory Tests Test 10/13/16 12:06 10/13/16 17:24 10/13/16 19:27 10/13/16 20:57 Glucose (Fingerstick) 98mg/dL (70-99) 94mg/dL (70-99) 191mg/dL (70-99) 184mg/dL (70-99) Test 10/14/16 04:53 10/14/16 07:49 10/14/16 08:10 Sodium Level 142mmol/L (136-145) Potassium Level 3.5mmol/L (3.5-5.1) Chloride Level 105mmol/L (98-107) Carbon Dioxide Level 30mmol/L (21-32) Anion Gap 7 (6-14) Blood Urea Nitrogen 35mg/dL (7-20) Creatinine 1.2mg/dL (0.6-1.0) Estimated GFR (Cockcroft-Gault) 42.7 Glucose Level 50mg/dL (70-99) Calcium Level 8.7mg/dL (8.5-10.1) Magnesium Level 1.9mg/dL (1.8-2.4) Triglycerides Level 65mg/dL (0-150) Cholesterol Level 131mg/dL (0-200) LDL Cholesterol, Calculated 32mg/dL (0-100) VLDL Cholesterol, Calculated 13mg/dL (0-40) HDL Cholesterol 86mg/dL (40-60) Cholesterol/HDL Ratio 1.5 Thyroid Stimulating Hormone (TSH) 22.652uIU/mL (0.358-3.74) Glucose (Fingerstick) 62mg/dL (70-99) 86mg/dL (70-99) Medications Current Medications Insulin Human Regular (Novolin R Vial) 10 unit 1X ONCE IV Last administered on 10/12/16 23:41; Start 10/12/16 at 23:30; Stop 10/12/16 at 23:31; Status DC Ondansetron HCl (Zofran) 4 mg PRN Q8HRS PRN IV NAUSEA/VOMITING; Start 10/12/16 at 23:15; Stop 10/13/16 at 23:14; Status DC Morphine Sulfate 2 mg 2 mg PRN Q2HR PRN IV SEVERE PAIN; Start 10/12/16 at 23:15 ; Stop 10/13/16 at 23:14; Status DC Sodium Chloride 1,000 ml @ 125 mls/hr Q8H IV Last administered on 10/13/16 09: 26; Start 10/12/16 at 23:30; Stop 10/13/16 at 23:29; Status DC Sodium Chloride (Iv Sodium Chloride 0.9% 500ml Bag) 500 ml @ 500 mls/hr 1X ONCE IV Last administered on 10/12/16 23:33; Start 10/12/16 at 23:30; Stop at 00:29; Status DC Insulin Detemir (Levemir) 20 units 1X ONCE SQ Last administered on 10/12/16 23 :33; Start 10/12/16 at 23:30; Stop 10/12/16 at 23:31; Status DC Aspirin (Children'S Aspirin) 324 mg 1X ONCE PO Last administered on 10/13/16 02:25; Start 10/13/16 at 02:30; Stop 10/13/16 at 02:31; Status DC Dextrose 12.5 gm PRN Q15MIN PRN IV SEE COMMENTS; Start 10/13/16 at 07:45 Dextrose 12.5 gm 1X ONCE IV ; Start 10/13/16 at 07:45; Stop 10/13/16 at 07:46; Status DC Acetaminophen (Tylenol) 650 mg PRN Q6HRS PRN PO MILD PAIN / TEMP; Start at 08:45 Allopurinol (Zyloprim) 100 mg DAILY PO Last administered on 10/14/16 09:15; Start 10/13/16 at 09:00 Aspirin (Children'S Aspirin) 81 mg HS PO Last administered on 10/13/16 20:53; Start 10/13/16 at 21:00 Donepezil HCl (Aricept) 10 mg HS PO Last administered on 10/13/16 20:53; Start 10/13/16 at 21:00 Pantoprazole Sodium (Protonix) 40 mg DAILY07 PO Last administered on 10/14/16 09:15; Start 10/13/16 at 09:00 Prednisone (Prednisone) 10 mg DAILY PO Last administered on 10/14/16 09:15; Start 10/13/16 at 09:00 Potassium Chloride (Klor-Con) 10 meq DAILYWBKFT PO Last administered on 09:15; Start 10/13/16 at 09:00 Insulin Detemir (Levemir) 10 units QHS SQ Last administered on 10/13/16 21:04; Start 10/13/16 at 21:00 Furosemide (Lasix) 40 mg 1X ONCE IVP Last administered on 10/13/16 15:38; Start 10/13/16 at 14:30; Stop 10/13/16 at 14:31; Status DC Trazodone HCl (Desyrel) 50 mg QHS PO Last administered on 10/13/16 21:30; Start 10/13/16 at 21:30 Furosemide (Lasix) 40 mg 1X ONCE IVP ; Start 10/13/16 at 21:30; Stop 10/13/16 at 21:35; Status DC Furosemide (Lasix) 40 mg 1X ONCE IVP Last administered on 10/14/16 09:15; Start 10/14/16 at 08:00; Stop 10/14/16 at 08:01; Status DC Albuterol/ Ipratropium (Duoneb) 3 ml RTQID NEB Last administered on 10/14/16 07 :36; Start 10/14/16 at 08:00 Active Scripts Active Mapap (Acetaminophen) 325 Mg Tablet 650 Mg PO PRN Q6HRS PRN Reported Losartan Potassium 25 Mg Tablet 25 Mg PO DAILY Coreg (Carvedilol) 3.125 Mg Tablet 1 Tab PO BID Potassium Chloride 10 Meq Tablet.er 10 Meq PO DAILY Simvastatin 20 Mg Tablet 1 Tab PO QHS Hair, Skin & Nails Softgel (Mv,Iron,Min/Folic Acid/Biotin) 66.7 Mcg Capsule 66.7 Mcg PO DAILY Prednisone 10 Mg Tablet 10 Mg PO DAILY Protonix (Pantoprazole Sodium) 40 Mg Tablet.dr 1 Tab PO DAILY Furosemide 20 Mg Tablet 1.5 Tab PO DAILY Allopurinol 100 Mg Tablet 1 Tab PO DAILY Novolog (Insulin Aspart) 100 Unit/1 Ml Cartridge 5 Unit SQ TIDWMEALS Multi Vitamin Daily (Multivitamin) 1 Each Tablet 1 Each PO DAILY Lutein 20 Mg Capsule 20 Mg PO DAILY Colace (Docusate Sodium) 100 Mg Capsule 100 Mg PO HS Aspirin 81 Mg Tab.chew 81 Mg PO HS next dose due 01/28 9pm Donepezil Hcl 10 Mg Tablet 1 Tab PO HS next dose due 01/28 at 9pm Vitals/I & O Vital Sign - Last 24 Hours 10/13/16 10/13/16 10/13/16 10/13/16 10:38 14:20 14:20 14:21 Temp 97.7 97.7 Pulse 76 80 80 81 Resp 18 B/P 103/52 127/70 151/69 147/69 O2 Delivery Room Air 3/810/13/16 10/13/16 10/13/16 14:44 19:40 19:46 23:59 Temp 98.2 98.2 97.8 98.2 98.2 97.8 Pulse 82 82 84 Resp B/P 135/72 143/75 122/62 Pulse Ox 98 96 96 O2 Delivery Room Air Room Air Room Air Room Air 10/14/16 10/14/16 10/14/16 10/14/16 03:55 07:00 07:38 09:04 Temp 98.4 98.4 Pulse 82 80 80 Resp 18 B/P 137/57 138/56 121/52 Pulse Ox 94 100 93 O2 Delivery Aerosol Mask Room Air 10/14/16 09:07 Pulse 80 B/P 133/53 Intake and Output 10/13/16 10/13/16 10/14/16 15:00 23:00 07:00 Intake Total 700 ml 100 ml Output Total 875 ml 600 ml Balance -175 ml -500 ml PERRY NORTH MD Oct 14, 2016 10:20
[2016-10-14 10:24] VITALS: BP 146/64
[2016-10-14] MEDS ORDERED: INSU100V13 SQ (10:24)
--- NOTE | 2016-10-14 10:38 | PDOC ---
PULMONARY PROGRESS NOTES Subjective feels better post diuresis Vitals Vital Signs Date Time Temp Pulse Resp B/P Pulse Ox O2 Delivery O2 Flow Rate FiO2 10/14/16 10:24 97.3 79 20 146/64 97 Room Air 97.3 General: Alert, No acute distress Lungs: Other (decrease bs) Cardiovascular: S1 Abdomen: Soft Neuro Exam: Alert Extremities: Other (2+edema) Skin: Warm Labs Laboratory Tests Test 10/12/16 20:23 10/12/16 20:28 10/12/16 22:04 10/12/16 23:19 Urine Collection Type Unknown Urine Color Yellow Urine Clarity Clear Urine pH 5.5 Urine Specific [place] >=1.030 Urine Protein 30mg/dL (NEG-TRACE) Urine Glucose (UA) >=1000mg/dL (NEG) Urine Ketones (Stick) Negativemg/dL (NEG) Urine Blood Small (NEG) Urine Nitrite Negative (NEG) Urine Bilirubin Negative (NEG) Urine Urobilinogen Dipstick 0.2mg/dL (0.2 mg/dL) Urine Leukocyte Esterase Negative (NEG) Urine RBC 3-5/HPF (0-2) Urine WBC 1-4/HPF (0-4) Urine Squamous Epithelial Cells Few/LPF Urine Bacteria 0/HPF (0-FEW) Glucose (Fingerstick) 567mg/dL (70-99) 468mg/dL (70-99) White Blood Count 11.1x10^3/uL (4.0-11.0) Red Blood Count 4.03x10^6/uL (3.50-5.40) Hemoglobin 11.1g/dL (12.0-15.5) Hematocrit 34.3% (36.0-47.0) Mean Corpuscular Volume 85fL (79-100) Mean Corpuscular Hemoglobin 28pg (25-35) Mean Corpuscular Hemoglobin Concent 33g/dL (31-37) Red Cell Distribution Width 20.3% (11.5-14.5) Platelet Count 176x10^3/uL (140-400) Neutrophils (%) (Auto) 76% (31-73) Lymphocytes (%) (Auto) 14% (24-48) Monocytes (%) (Auto) 10% (0-9) Eosinophils (%) (Auto) 0% (0-3) Basophils (%) (Auto) 1% (0-3) Neutrophils # (Auto) 8.4x10^3uL (1.8-7.7) Lymphocytes # (Auto) 1.5x10^3/uL (1.0-4.8) Monocytes # (Auto) 1.0x10^3/uL (0.0-1.1) Eosinophils # (Auto) 0.0x10^3/uL (0.0-0.7) Basophils # (Auto) 0.1x10^3/uL (0.0-0.2) Toxic Granulation Slight Toxic Vacuolation Slight Platelet Estimate Adequate (ADEQUATE) Polychromasia Slight Anisocytosis Mod Sodium Level 136mmol/L (136-145) Potassium Level 4.1mmol/L (3.5-5.1) Chloride Level 99mmol/L (98-107) Carbon Dioxide Level 31mmol/L (21-32) Anion Gap 6 (6-14) Blood Urea Nitrogen 38mg/dL (7-20) Creatinine 1.6mg/dL (0.6-1.0) Estimated GFR (Cockcroft-Gault) 30.6 Glucose Level 505mg/dL (70-99) Serum Osmolality 308mOsm/Kg (279-304) Calcium Level 9.1mg/dL (8.5-10.1) Total Bilirubin 0.7mg/dL (0.2-1.0) Direct Bilirubin 0.3mg/dL (0.0-0.2) Aspartate Amino Transf (AST/SGOT) 174U/L (15-37) Alanine Aminotransferase (ALT/SGPT) 85U/L (14-59) Alkaline Phosphatase 156U/L (46-116) Troponin I Quantitative 0.070ng/mL (0.000-0.055) Total Protein 6.3g/dL (6.4-8.2) Albumin 3.4g/dL (3.4-5.0) Lipase 341U/L (73-393) Test 10/13/16 01:28 10/13/16 02:45 10/13/16 03:59 10/13/16 06:47 Glucose (Fingerstick) 178mg/dL (70-99) 93mg/dL (70-99) 44mg/dL (70-99) Troponin I Quantitative 0.090ng/mL (0.000-0.055) Test 10/13/16 07:22 10/13/16 08:02 10/13/16 08:15 10/13/16 12:06 Glucose (Fingerstick) 71mg/dL (70-99) 115mg/dL (70-99) 98mg/dL (70-99) White Blood Count 9.0x10^3/uL (4.0-11.0) Red Blood Count 3.77x10^6/uL (3.50-5.40) Hemoglobin 10.5g/dL (12.0-15.5) Hematocrit 33.3% (36.0-47.0) Mean Corpuscular Volume 88fL (79-100) Mean Corpuscular Hemoglobin 28pg (25-35) Mean Corpuscular Hemoglobin Concent 31g/dL (31-37) Red Cell Distribution Width 20.4% (11.5-14.5) Platelet Count 165x10^3/uL (140-400) Neutrophils (%) (Auto) 69% (31-73) Lymphocytes (%) (Auto) 20% (24-48) Monocytes (%) (Auto) 9% (0-9) Eosinophils (%) (Auto) 2% (0-3) Basophils (%) (Auto) 1% (0-3) Neutrophils # (Auto) 6.3x10^3uL (1.8-7.7) Lymphocytes # (Auto) 1.8x10^3/uL (1.0-4.8) Monocytes # (Auto) 0.8x10^3/uL (0.0-1.1) Eosinophils # (Auto) 0.1x10^3/uL (0.0-0.7) Basophils # (Auto) 0.1x10^3/uL (0.0-0.2) Sodium Level 141mmol/L (136-145) Potassium Level 3.5mmol/L (3.5-5.1) Chloride Level 104mmol/L (98-107) Carbon Dioxide Level 30mmol/L (21-32) Anion Gap 7 (6-14) Blood Urea Nitrogen 33mg/dL (7-20) Creatinine 1.3mg/dL (0.6-1.0) Estimated GFR (Cockcroft-Gault) 38.9 Glucose Level 111mg/dL (70-99) Hemoglobin A1c 10.7% (4.8-5.6) Calcium Level 8.8mg/dL (8.5-10.1) Troponin I Quantitative 0.079ng/mL (0.000-0.055) Test 10/13/16 17:24 10/13/16 19:27 10/13/16 20:57 10/14/16 04:53 Glucose (Fingerstick) 94mg/dL (70-99) 191mg/dL (70-99) 184mg/dL (70-99) Sodium Level 142mmol/L (136-145) Potassium Level 3.5mmol/L (3.5-5.1) Chloride Level 105mmol/L (98-107) Carbon Dioxide Level 30mmol/L (21-32) Anion Gap 7 (6-14) Blood Urea Nitrogen 35mg/dL (7-20) Creatinine 1.2mg/dL (0.6-1.0) Estimated GFR (Cockcroft-Gault) 42.7 Glucose Level 50mg/dL (70-99) Calcium Level 8.7mg/dL (8.5-10.1) Magnesium Level 1.9mg/dL (1.8-2.4) Triglycerides Level 65mg/dL (0-150) Cholesterol Level 131mg/dL (0-200) LDL Cholesterol, Calculated 32mg/dL (0-100) VLDL Cholesterol, Calculated 13mg/dL (0-40) HDL Cholesterol 86mg/dL (40-60) Cholesterol/HDL Ratio 1.5 Thyroid Stimulating Hormone (TSH) 22.652uIU/mL (0.358-3.74) Test 10/14/16 07:49 10/14/16 08:10 Glucose (Fingerstick) 62mg/dL (70-99) 86mg/dL (70-99) Laboratory Tests Test 10/13/16 12:06 10/13/16 17:24 10/13/16 19:27 10/13/16 20:57 Glucose (Fingerstick) 98mg/dL (70-99) 94mg/dL (70-99) 191mg/dL (70-99) 184mg/dL (70-99) Test 10/14/16 04:53 10/14/16 07:49 10/14/16 08:10 Sodium Level 142mmol/L (136-145) Potassium Level 3.5mmol/L (3.5-5.1) Chloride Level 105mmol/L (98-107) Carbon Dioxide Level 30mmol/L (21-32) Anion Gap 7 (6-14) Blood Urea Nitrogen 35mg/dL (7-20) Creatinine 1.2mg/dL (0.6-1.0) Estimated GFR (Cockcroft-Gault) 42.7 Glucose Level 50mg/dL (70-99) Calcium Level 8.7mg/dL (8.5-10.1) Magnesium Level 1.9mg/dL (1.8-2.4) Triglycerides Level 65mg/dL (0-150) Cholesterol Level 131mg/dL (0-200) LDL Cholesterol, Calculated 32mg/dL (0-100) VLDL Cholesterol, Calculated 13mg/dL (0-40) HDL Cholesterol 86mg/dL (40-60) Cholesterol/HDL Ratio 1.5 Thyroid Stimulating Hormone (TSH) 22.652uIU/mL (0.358-3.74) Glucose (Fingerstick) 62mg/dL (70-99) 86mg/dL (70-99) Medications Active Scripts Medications Dose Route/Sig Days Date Category Dose Instructions Losartan Potassium 25 Mg Tablet 25 Mg PO DAILY 10/13/16 Reported Coreg (Carvedilol) 3.125 Mg Tablet 1 Tab PO BID 10/13/16 Reported Potassium Chloride 10 Meq Tablet.er 10 Meq PO DAILY 09/26/16 Reported Simvastatin 20 Mg Tablet 1 Tab PO QHS 09/23/16 Reported Hair, Skin & Nails Softgel (Mv,Iron,Min/Folic Acid/Biotin) 66.7 Mcg Capsule 66.7 Mcg PO DAILY 09/23/16 Reported Prednisone 10 Mg Tablet 10 Mg PO DAILY 09/23/16 Reported Protonix (Pantoprazole Sodium) 40 Mg Tablet.dr 1 Tab PO DAILY 09/23/16 Reported Furosemide 20 Mg Tablet 1.5 Tab PO DAILY 09/23/16 Reported Allopurinol 100 Mg Tablet 1 Tab PO DAILY 09/23/16 Reported Novolog (Insulin Aspart) 100 Unit/1 Ml Cartridge 5 Unit SQ TIDWMEALS 09/23/16 Reported Mapap (Acetaminophen) 325 Mg Tablet 650 Mg PO PRN Q6HRS PRN 05/14/16 Rx Multi Vitamin Daily (Multivitamin) 1 Each Tablet 1 Each PO DAILY 05/08/16 Reported Lutein 20 Mg Capsule 20 Mg PO DAILY 05/08/16 Reported Colace (Docusate Sodium) 100 Mg Capsule 100 Mg PO HS 05/08/16 Reported Aspirin 81 Mg Tab.chew 81 Mg PO HS 01/26/15 Reported next dose due 01/28 9pm Donepezil Hcl 10 Mg Tablet 1 Tab PO HS 01/26/15 Reported next dose due 01/28 at 9pm Impression . 1. Chronic exertional dyspnea, suspect secondary to ongoing mild congestive heart failure secondary to moderate to severe mitral regurgitation and grade 2 diastolic dysfunction. In addition, she has a small left pleural effusion best seen on the CT of the chest 2 weeks ago, unchanged on repeat CT of the chest 10/13 2. Moderate to severe mitral regurgitation and grade 2 diastolic dysfunction, and this is one of the etiologies of her chronic exertional dyspnea. 3. Renal insufficiency secondary to prerenal azotemia, improved. I would avoid further IV fluids due to risk of congestive heart failure. 4. History of tobaccoism, up to 3 packs per day for 30 years, suspect underlying chronic obstructive pulmonary disease. Plan . 1. Discussed with the patient's family. At this time, I will use p.r.n. oxygen. Currently, she is on room air. 2. Followup CT of the chest w/o much change in size of the effusion d/w IR. she probably has 350 cc fluid. I think the risk of thoracentesis at present outweighs benefits specially in the setting of normal oxygen saturation while on room air. 3. Cardiology to address her valvular heart disease and diastolic dysfunction and diuresis 4. Monitor blood sugar per PCP. 5. AUSTIN Smith MD Oct 14, 2016 10:38
--- NOTE | 2016-10-14 10:39 | CONS ---
DATE OF CONSULTATION: 10/13/2016 HISTORY OF PRESENT ILLNESS: This is an 86-year-old white female who was brought in by her daughter to the Emergency Room because of decrease in level of consciousness and significantly elevated blood sugars. She had been giving her several doses of NovoLog. Despite that, the blood sugar on the glucometer registered as high. This patient has had cardiac problems. She underwent open heart surgery in 2012. I first saw her in 2013. At that time, her EF was normal. I next saw her in 2014 with shortness of breath. She underwent coronary arteriograms because of this and because of an abnormal myocardial perfusion imaging study. The graft to the LAD and ramus were patent. The graft to the circumflex coronary artery was totally occluded. The EF had dropped to 35-40%. I next saw her in May 2016 when she came in with bradycardia. She had to be placed on an epinephrine drip. This was over a weekend. A BiV pacemaker could not be placed. Thus, AV sequential pacemaker was placed. I saw her in August 2016. She had gone into atrial fibrillation just recently. Her daughter was very concerned because she was so short of breath with minimal exertion. Her EF dropped again to 20%. An EKG now showed a wide QRS complex. She thus became a candidate for BiV pacemaker. AICD was discussed with her and her family. After some discussion and change in mind, they decided that they would have the AICD. Thus, Dr. Crabtree placed a BiV AICD on 09/24/2016. Postoperative course was somewhat complicated by a large amount of ecchymosis and small hematoma. But the incision was intact. Thus, no intervention was carried out. Since then, she does not feel any better. She still has significant shortness of breath. She was seen in consultation by Dr. Reardon around the middle of September. He thought that her main problem with one of congestive heart failure. He asked her to take the Lasix 40 mg every day instead of every other day. The concern of the family was that in the past when she had increased her dose of Lasix, her creatinine had gone up. After taking the Lasix for 1 week as instructed by Dr. Reardon, her creatinine was 1.6. It has been in the past as high as 2.2 and 2.9. After the small amount of iodine that is normally given while placing the BiV pacemaker, she had no increase in the creatinine. She has diabetes. Her most recent echocardiogram was on 09/08/2016. It showed an EF of 20%. It showed a diastolic dysfunction. It showed severe mitral regurgitation and moderate aortic regurgitation and an enlarged left atrium. Normally we wait about 2 or 3 months to check another echo to see whether the BiV pacing has had any beneficial effect. We talked about cardioversion. Since her atrial fibrillation was first noted in July 2016, she is definitely a candidate for cardioversion. The family was leery about anticoagulation. Without anticoagulation cardioversion would not be possible. Since she had ecchymosis and some bleeding and a small hematoma, we held off the anticoagulation, but we could probably soon start it because the risk of bleeding anymore is past. She has smoked 3 packs of cigarettes a day for 30 years before quitting about 20 years ago. CURRENT MEDICATIONS: 1. Allopurinol 200 mg a day. 2. Aspirin 81 mg a day. 3. Carvedilol 3.125 mg twice a day. 4. Colace 100 mg a day. 5. Donepezil 10 mg a day. 6. Lasix 20 mg a day. 7. NovoLog insulin before each meal. 8. Losartan 25 mg a day. 9. Lutein 20 mg a day. 10. Multivitamin 1 tablet a day. 11. Pantoprazole 40 mg a day. 12. Potassium chloride 10 mEq a day. 13. Prednisone 10 mg a day. 14. Simvastatin 20 mg a day. PHYSICAL EXAMINATION: GENERAL: She was in no distress. She was alert and awake. She answers questions appropriately, though her daughter warranted most of the information. VITAL SIGNS: The heart rate was 100 per minute and irregular. The blood pressure was 140/80. LUNGS: Clear with no wheezing or rales. HEART: The heart sounds are normal. There is a grade 1/6 systolic murmur at the apex. There is no S3. ABDOMEN: Soft. EXTREMITIES: There is no edema of the legs. The wound over the pacemaker incision was intact. There were Steri-Strips. There was significant ecchymosis over the entire left chest and over the left breast. There are no areas of hematoma or bleeding. LABORATORY DATA: A chest x-ray showed cardiomegaly and a small pleural effusion. There is some increase in vascularity, but this is unchanged from 05/2016. An EKG showed atrial fibrillation. IMPRESSION: 1. Ischemic cardiomyopathy, acute on chronic congestive heart failure. 2. Paroxysmal atrial fibrillation. 3. Mitral regurgitation. 4. Left-sided pleural effusion, probably secondary to the congestive heart failure. 5. Exertional dyspnea, probably due to CHF though with history of smoking of 90 pack years, one should probably also consider underlying COPD. Her symptoms of shortness of breath with exertion at least according to the daughter seem to be out of proportion to the CHF. I would like to start her on nebulized bronchodilators to see whether that would improve her symptoms. HOSPITAL COURSE: As stated before, we would need to wait at least 2 months to see if there has been a beneficial effect on the EF by the BiV pacemaker. I certainly would like to cardiovert her. I believe we can place her on anticoagulation at this time and once she has been anticoagulated for 4 weeks, we could cardiovert her. At present, she needs a higher dose of diuretics other than the 40 mg a day. The family has been concerned about the rising creatinine whenever we increase the dose of Lasix. During this hospitalization, I would like to put her on a Lasix drip carefully observing her for orthostatic hypotension and carefully following her creatinine level and see if she can tolerate the higher dose of diuretics and whether that would have a beneficial effect on her symptoms. Thank you for asking me to see her. JOHAN VAIL MD DR: CLAUDIA/peter JOB#: [id number] / [id number]
[2016-10-14] MEDS ORDERED: LEVO50TA5 PO (12:30)
[2016-10-14] MEDS ORDERED: APIX2.5T PO (12:30)
[2016-10-14] MEDS ORDERED: IPRA3AMP NEB (13:48)
[2016-10-14] MEDS ORDERED: CARV3.122 PO (13:49)
[2016-10-14] MEDS ORDERED: LOSA25TA4 PO (13:49)
--- NOTE | 2016-10-14 20:45 | DS ---
DATE OF DISCHARGE: 10/14/2016 DATE OF DISCHARGE: 10/14/2016. DISCHARGE DIAGNOSES: 1. Hyperglycemia. 2. Chronic kidney disease, 2-3. 3. Pleural effusion. 4. Congestive heart failure with ischemic cardiomyopathy. HISTORY OF PRESENT ILLNESS: This is an 86-year-old female who is well known to me from followup in the clinic as well as recent hospital stays and intermediate stays. The patient presented to the Emergency Room on the date of admission accompanied by her daughter with complaints of increased lethargy that had progressively worsened over a 2-day period. Upon evaluation in the Emergency Room, she was found to be . The patient was given 20 units of Levemir. The patient was also found to be dehydrated upon evaluation in the Emergency Room. The patient was admitted to the hospital for treatment of her and correction of the dehydration. SUMMARY OF STAY: Upon admission, Pulmonology was consulted as well as Cardiology. The patient's blood sugar did drop following the Levemir dosing and the patient became hypoglycemic; therefore, the patient was started on a glucose drip. Once blood sugars were returned to the normal range, the patient stated that she felt much better. The Levemir was decreased to 10 units nightly. The following morning, the patient's blood sugar did drop to 60. The patient denied signs and symptoms of hypoglycemia. Upon admission, the patient's creatinine was 1.6. Following an IV fluid bolus and hydration, the patient's creatinine dropped to 1.2, which is about baseline for the patient. DISPOSITION: The patient will be discharged home in her daughter's care. DIET: ADA. ACTIVITY: As tolerated. DISCHARGE MEDICATIONS: The patient will resume her previous home medications with the addition of Levemir 5 units subQ at bedtime. We will also start the patient on Synthroid 100 mcg as her ____ was 22.652, tested on 10/14/2016. FOLLOWUP: The patient is to follow up in our clinic in 1 week. The patient's daughter stated understanding of the discharge summary. Levemir and Synthroid were both called to the pharmacy. The patient will follow up as directed and denied further questions. PERRY NORTH MD DR: SUMMER/peter JOB#: [id number] / [id number]
--- NOTE | 2016-10-14 22:09 | PDOC ---
Provider Note Provider Note She is breathing better. Family says that her exercise tolerance has improved significantly. She is now able to walk to the bathroom and back with no shortness of breath or tachypnea. She is being discharged today. Suggest the following. 1. Resume oral Coreg and the losartan for the the cardiomyopathy and an EF of 20 %. 2. Start anticoagulation so that the cardioversion can be performed.lEliquis was suggested but patient cannot afford it. Discussed with Dr. Frank. Consider the newer anticoagulants because of less chance of bleeding and we may be able to provide samples. 3. Nebulizer with DuoNeb because of her 90 years pack history of smoking. The bronchodilator was probably responsible for improvement along with IV Lasix. 4. Take Lasix 40 mg every day because when she did take it for one week the creatinine was only 1.6. 5. Consider taking Synthroid at 50 g a day because of coronary artery disease and the possibility of precipitating angina. Also with the atrial fibrillation she could develop RVR. JOHAN VAIL MD Oct 14, 2016 22:09
== END 2016-10-14 14:30 | disposition home or self-care (01) | DRG 291 ==
LOC: ER 20:06 → 2 NORTH 10-13 02:08
PROVIDERS: ADMIT Family Medicine; ATTEND Family Medicine
DX: I13.0 Hypertensive heart and chronic kidney disease with heart failure and stage 1 through stage 4 chronic kidney disease, or unspecified chronic kidney disease (principal); I50.23 Acute on chronic systolic (congestive) heart failure; E11.65 Type 2 diabetes mellitus with hyperglycemia; E11.22 Type 2 diabetes mellitus with diabetic chronic kidney disease; E11.649 Type 2 diabetes mellitus with hypoglycemia without coma; E86.0 Dehydration; I08.0 Rheumatic disorders of both mitral and aortic valves; I25.5 Ischemic cardiomyopathy; I48.0 Paroxysmal atrial fibrillation; I50.9 Heart failure, unspecified; I95.1 Orthostatic hypotension; N18.3 Chronic kidney disease, stage 3 (moderate); T50.1X5A Adverse effect of loop [high-ceiling] diuretics, initial encounter; Z79.4 Long term (current) use of insulin; Z87.891 Personal history of nicotine dependence; Z95.1 Presence of aortocoronary bypass graft; Z88.0 Allergy status to penicillin; Z88.8 Allergy status to other drugs, medicaments and biological substances; Z79.899 Other long term (current) drug therapy
CPT/HCPCS: 36415; 71010; 71250; 80048; 80061; 80076; 81001; 82947; 83036; 83690; 83735; 83930; 84443; 84484; 85007; 85027; 93005; 94250; 94640; 94760; 96361; 96372; 96374; J1815; J1940; J7030; J7040; J7512; J7620; 99285-25

== ENCOUNTER → 2016-11-11 | Outpatient (CLI) | payer MEDICARE, OTHER ==
[2016-10-14 10:24] VITALS: BP 146/64
[~2016-11-11] MED LIST changes: +APIX2.5T PO; +CARV3.12 PO; +CARV3.122 PO; +INSU100V13 SQ; +IPRA3AMP NEB; +LEVO50TA5 PO; +LOSA25TA4 PO
--- NOTE | 2016-11-11 13:48 | RAD ---
Bilateral lower extremity venous Doppler ultrasound History: Pitting edema, seeping of bilateral lower extremities. Comparison: None. Procedure: Color Doppler, spectral Doppler, and grayscale images are obtained with and without compression in the area of the common femoral vein, superficial femoral vein - femoral vein junction, main femoral vein (superficial femoral vein) and popliteal vein. Veins of the proximal calf are also imaged. Findings: There is normal duplex flow, color flow and compressibility of all visualized vein segments. No evidence of deep venous thrombosis is present. Impression: No evidence of lower extremity deep venous thrombosis.
== END | disposition home or self-care (01) ==
LOC: US 09:24
PROVIDERS: ATTEND Specialist
DX: M79.89 Other specified soft tissue disorders (principal)
CPT/HCPCS: 93970

== ENCOUNTER 2016-11-30 00:35 | Inpatient (IN) | payer MEDICARE, OTHER ==
[~2016-11-30] VITALS: Ht 152.4 cm; Wt 70.3 kg
[2016-11-30 10:00] VITALS: BP 117/54
[2016-11-30 15:00] VITALS: BP 138/52
[2016-11-30] MEDS ORDERED: DEXTROSE 50% 25 GM / 50ML DISP.SYRIN. IV PRN (16:30)
[2016-11-30 16:46] LABS: BASO % 0 % (0-3); EOS % 0 % (0-3); HEMATOCRIT 34.4 % (36.0-47.0); HEMOGLOBIN 11.1 g/dL (12.0-15.5); LYMPH # 0.7 x10^3/uL (1.0-4.8); LYMPH % 9 % (24-48); MEAN CORPUSCULAR HEMOGLOBIN 29 pg (25-35); MEAN CORPUSCULAR HGB CONC 32 g/dL (31-37); MEAN CORPUSCULAR VOLUME 89 fL (79-100); MONO % 2 % (0-9); NEUT % 89 % (31-73); PLATELET COUNT 173 x10^3/uL (140-400); RED BLOOD COUNT 3.87 x10^6/uL (3.50-5.40); RED CELL DISTRIBUTION WIDTH 19.5 % (11.5-14.5); WHITE BLOOD COUNT 8.7 x10^3/uL (4.0-11.0)
[2016-11-30 17:03] LABS: ALBUMIN 3.5 g/dL (3.4-5.0); ALBUMIN/GLOBULIN RATIO 1.2 (1.0-1.7); CALCIUM 8.9 mg/dL (8.5-10.1); GFR 23.7; POTASSIUM 4.5 mmol/L (3.5-5.1); TOTAL BILIRUBIN 0.8 mg/dL (0.2-1.0); TOTAL PROTEIN 6.5 g/dL (6.4-8.2)
[2016-11-30 17:20] LABS: ANISOCYTOSIS SLIGHT; PLT ESTIMATE ADEQUATE (ADEQUATE); POIKILOCYTOSIS SLIGHT
[2016-11-30 17:21] LABS: OVALOCYTES FEW
[2016-11-30] MEDS: INSULIN ASPART 300 UNITS/3 ML INSULN.PEN SQ SCH ×2 (17:37→17:38)
[2016-11-30 19:00] VITALS: BP 122/42
--- NOTE | 2016-11-30 20:43 | PDOC ---
GENERAL General: see dictated H&P. cardiology consulted. BNP>6000 with BUN 65 and creatinine 2.0. will check cxr also. Problems: VITAL SIGNS Vital Signs: Vital Signs Date Time Temp Pulse Resp B/P Pulse Ox O2 Delivery O2 Flow Rate FiO2 11/30/16 15:00 97.9 80 16 138/52 98 Room Air 97.9 ALLERGIES Allergies: Allergies Coded Allergies Type Severity Reaction Last Updated Verified Penicillins Allergy Intermediate 01/26/15 Yes ibuprofen Allergy Intermediate 01/26/15 Yes MEDS Medications: Current Medications Medications (Trade) Dose Ordered Sig/Melisa Start Time Stop Time Status Last Admin Dose Admin Acetaminophen (Tylenol) 650 mg PRN Q6HRS PRN 11/30/16 18:15 Allopurinol (Zyloprim) 100 mg DAILY 12/01/16 09:00 Aspirin (Children'S Aspirin) 81 mg HS 11/30/16 21:00 Carvedilol (Coreg) 3.125 mg BIDWMEALS 12/01/16 08:00 Dabigatran (Pradaxa) 75 mg BID 11/30/16 21:00 Dextrose (Dextrose 50%-Water Syringe) 12.5 gm PRN Q15MIN PRN 11/30/16 16:30 Donepezil HCl (Aricept) 10 mg HS 11/30/16 21:00 Furosemide (Lasix) 40 mg Q12HR 11/30/16 21:00 Insulin Aspart (Novolog) 0-5 UNITS TIDWMEALS 11/30/16 17:00 11/30/16 17:37 5 UNITS Levothyroxine Sodium (Synthroid) 50 mcg DAILY07 12/01/16 07:00 Losartan Potassium (Cozaar) 25 mg DAILY 12/01/16 09:00 Multivitamins (Thera M Plus) 1 tab DAILY 12/01/16 09:00 Multivitamins/ Minerals (Ocuvite Lutein) 1 cap DAILY 12/01/16 09:00 Non-Formulary Medication 66.7 mcg DAILY 12/01/16 09:00 UNV Potassium Chloride (Klor-Con) 10 meq [id number] 12/01/16 08:00 Prednisone (Prednisone) 10 mg DAILY 12/01/16 09:00 Simvastatin (Zocor) 20 mg QHS 11/30/16 21:00 Trazodone HCl (Desyrel) 25 mg QHS 11/30/16 21:00 LAB Lab: Laboratory Tests Test 11/30/16 16:35 White Blood Count 8.7x10^3/uL (4.0-11.0) Red Blood Count 3.87x10^6/uL (3.50-5.40) Hemoglobin 11.1g/dL (12.0-15.5) Hematocrit 34.4% (36.0-47.0) Mean Corpuscular Volume 89fL (79-100) Mean Corpuscular Hemoglobin 29pg (25-35) Mean Corpuscular Hemoglobin Concent 32g/dL (31-37) Red Cell Distribution Width 19.5% (11.5-14.5) Platelet Count 173x10^3/uL (140-400) Neutrophils (%) (Auto) 89% (31-73) Lymphocytes (%) (Auto) 9% (24-48) Monocytes (%) (Auto) 2% (0-9) Eosinophils (%) (Auto) 0% (0-3) Basophils (%) (Auto) 0% (0-3) Neutrophils # (Auto) 7.7x10^3uL (1.8-7.7) Lymphocytes # (Auto) 0.7x10^3/uL (1.0-4.8) Monocytes # (Auto) 0.2x10^3/uL (0.0-1.1) Eosinophils # (Auto) 0.0x10^3/uL (0.0-0.7) Basophils # (Auto) 0.0x10^3/uL (0.0-0.2) Segmented Neutrophils % 87% (35-66) Band Neutrophils % 3% (0-9) Lymphocytes % 7% (24-48) Monocytes % 3% (0-10) Platelet Estimate Adequate (ADEQUATE) Poikilocytosis Slight Anisocytosis Slight Ovalocytes Few Sodium Level 132mmol/L (136-145) Potassium Level 4.5mmol/L (3.5-5.1) Chloride Level 93mmol/L (98-107) Carbon Dioxide Level 30mmol/L (21-32) Anion Gap 9 (6-14) Blood Urea Nitrogen 65mg/dL (7-20) Creatinine 2.0mg/dL (0.6-1.0) Estimated GFR (Cockcroft-Gault) 23.7 BUN/Creatinine Ratio 33 (6-20) Glucose Level 361mg/dL (70-99) Calcium Level 8.9mg/dL (8.5-10.1) Total Bilirubin 0.8mg/dL (0.2-1.0) Aspartate Amino Transf (AST/SGOT) 73U/L (15-37) Alanine Aminotransferase (ALT/SGPT) 53U/L (14-59) Alkaline Phosphatase 88U/L (46-116) OL-Ifc-S-Type Natriuretic Peptide 6339pg/mL (0-449) Total Protein 6.5g/dL (6.4-8.2) Albumin 3.5g/dL (3.4-5.0) Albumin/Globulin Ratio 1.2 (1.0-1.7) PERRY NORTH MD Nov 30, 2016 20:43
[2016-11-30] MEDS ORDERED: ACETAMINOPHEN 500 MG TABLET PO ONE (21:00)
[2016-11-30] MEDS: SIMVASTATIN 20 MG TABLET PO SCH (22:05)
[2016-11-30] MEDS: ASPIRIN CHEWABLE 81 MG TABLET. PO SCH (22:06)
[2016-11-30] MEDS: DABIGATRAN ETEXILATE 75 MG CAPSULE. PO SCH (22:06)
[2016-11-30] MEDS: DONEPEZIL HCL 10 MG TABLET. PO SCH (22:06)
[2016-11-30] MEDS: traZODone 50 MG TABLET. PO SCH (22:06)
[2016-11-30] MEDS: FUROSEMIDE 40 MG/4 ML VIAL. IVP SCH (22:08)
[2016-11-30 23:00] VITALS: BP 105/43
[2016-12-01 05:25] LABS: CREATININE 1.9 mg/dL (0.6-1.0); GFR 25.1; POTASSIUM 3.6 mmol/L (3.5-5.1)
--- NOTE | 2016-12-01 05:35 | HP ---
ADMIT DATE: 11/30/2016 CHIEF COMPLAINT AND HISTORY OF PRESENT ILLNESS: This is an 86-year-old white female who is well known to me from followup in the office. The patient had been seen several times over the last couple of weeks with increasing edema as well as increasing shortness of breath and what appears to be left pleural effusion on her chest x-ray. We have increased her Lasix to no avail and added Zaroxolyn to no avail and at this point in time, it was felt necessary to admit her for IV diuresis and cardiological consultation as it appears to me that she is in clinically heart failure with developing left pleural effusion, which is causing her to be much more short of breath than usual. PAST MEDICAL HISTORY: Remarkable for congestive heart failure, chronic kidney disease stage 3, atherosclerotic heart disease, edema, diabetes. Has a pacemaker. She has a history of anemia, some mild dementia. MEDICATIONS: Brought with the patient, listed on the computer and have been addressed. ALLERGIES: SHE IS ALLERGIC TO PENICILLIN, IBUPROFEN AND ATENOLOL. SOCIAL HISTORY: She is . Nonsmoker, nondrinker, does not use drugs. Lives with her daughter. FAMILY HISTORY: Noncontributory. REVIEW OF SYSTEMS: That as mentioned above. She specifically, however, denies any significant orthopnea with this. PHYSICAL EXAMINATION: GENERAL: She is a well-developed, well-nourished white female, mildly short of breath at rest. VITAL SIGNS: Stable with the exception of respiratory rate of 16. She is afebrile. HEENT: Remarkable for glasses. NECK: Supple without ____ or thyromegaly. CHEST: Reveals decreased breath sounds, left upper lobe. HEART: Regular rate and rhythm without S3, S4 or murmur. ABDOMEN: Soft, nontender without hepatosplenomegaly or mass. EXTREMITIES: Without cyanosis or clubbing. There is 2-3+ edema with some oozing of serous material from her left leg due to the amount of swelling. NEUROLOGIC: She is intact. IMPRESSION: Increasing edema, increasing shortness of breath, developing left pleural effusion, all consistent with likely worsening of heart failure, unresponsive to outpatient management. PLAN: The patient has been admitted. Cardiology has been consulted. IV diuresis ____. We will take another chest x-ray and the patient will be monitored, managed and treated appropriately. PERRY NORTH MD DR: Barron JOB#: [id number] / [id number]
[2016-12-01 07:00] VITALS: BP 124/66
--- NOTE | 2016-12-01 07:07 | ACF ---
Admit Criteria Forms Admit Criteria Forms Admit Criteria Forms HEART FAILURE: COMMON COMPLICATIONS Clinical Indications for Inpatient Care (Place 'X' for any and all applicable criteria): Ongoing inpatient care may be indicated for heart failure with ANY ONE of the following (1)(2)(3)(4)(5): [ ]I. Ongoing need for care for primary condition requiring frequent therapy adjustments because of changes in cardiac function (eg, drug dosage changes for drugs that are renally metabolized) [ ]II. New-onset heart failure [ ]III. Heart failure with decreased urine output not responsive to attempts to optimize volume status [ ]IV. Acute cardiac ischemia causing or associated with failure [X]V. Complications of heart failure, including ANY ONE of the following: [ ]a) Pericardial effusion [ ]b) Symptomatic pleural effusion [ ]c) O2 saturation <90% or PO2 < 60 mm Hg (8.0 kPa) on room air or require baseline supplemental O2 [ ]d) Tachypnea [X]e) Dyspnea [ ]f) Syncope [ ]g) Change in mental status [ ]h) Acute renal insufficiency that is severe (reduction of more than 50% in estimated glomerular filtration rate from baseline) or progressive reduction of more than 25% in estimated glomerular filtration rate from baseline, with creatinine continuing to rise) [ ]i) Hemodynamic instability [ ]j) Anasarca [ ]k) Clinically significant metabolic abnormalities due to heart failure (eg, new-onset metabolic acidosis) Extended stay beyond goal length of stay for primary condition may be needed until ALL of the following are present(1)(3): [ ]a) Stable and effective diuretic regimen established (or patient on stable dialysis regimen if in chronic renal failure) [ ]b) Breathing comfortably at rest [ ]c) Saturation of arterial oxygen greater than 90% or at acceptable baseline [ ]d) Pulmonary edema absent or improved [ ]e) Hemodynamic stability [ ]f) Volume status acceptable on oral medication [ ]g) Peripheral or sacral edema absent or improved [ ]h) Renal function stable and manageable at a lower level of care [ ]i) Complications (eg, pleural effusion) resolved or manageable at a lower level of care [ ]j) Patient or caregiver has received written discharge instructions or educational material addressing activity level, diet, discharge medications, follow-up appointment, weight monitoring, and what to do if symptoms worsen The original [employer] logo content created by [employer] has been revised. The portions of the content which have been revised are identified through the use of italic text or in bold, and Darius Haddad has neither reviewed nor approved the modified material.All other unmodified content is copyright [facility] [employer]. Please see references footnoted in the original [facility] [employer] edition 2016 SWATHI NOBLE Dec 01, 2016 07:07
--- NOTE | 2016-12-01 07:23 | RAD ---
Portable chest, 11/30/2016: History: Congestive heart failure Comparison is made to a study from 10/12/2016. There has been a previous median sternotomy. A left-sided transvenous pacemaker remains in place with active and inactive leads extending into the heart. The heart is enlarged. There is calcific plaquing of the aorta. The pulmonary vascularity is within normal limits. The right chest remains clear. There are unchanged left basilar pleural-parenchymal opacities obscuring the hemidiaphragm. A previous CT study showed that this was predominantly due to pleural fluid with mild underlying basilar atelectasis/infiltrate. No new abnormality is seen. IMPRESSION: 1. Cardiomegaly and aortic atherosclerosis. 2. Ongoing or recurrent moderate left basilar pleural/parenchymal opacities compatible with pleural fluid and underlying atelectasis/infiltrate.
[2016-12-01] MEDS: INSULIN ASPART 300 UNITS/3 ML INSULN.PEN SQ SCH ×6 (08:00→16:40)
--- NOTE | 2016-12-01 08:27 | PDOC ---
GENERAL General: vss and afebrile. O>I and little less sob this am. renal function stable with diuresis so far. chest with decreased breath sounds left and cxr with effusion. cardiology help appreciated. continue to diurese and watch potassium and renal function. Problems: VITAL SIGNS Vital Signs: Vital Signs Date Time Temp Pulse Resp B/P Pulse Ox O2 Delivery O2 Flow Rate FiO2 11/30/16 23:00 98.6 80 20 105/43 96 Room Air 98.6 I & O I & O Intake and Output 12/01/16 06:59 Intake Total 750 ml Output Total 1420 ml Balance -670 ml Intake Oral 750 ml Output Urine Total 1420 ml # Voids 2 ALLERGIES Allergies: Allergies Coded Allergies Type Severity Reaction Last Updated Verified Penicillins Allergy Intermediate 01/26/15 Yes ibuprofen Allergy Intermediate 01/26/15 Yes MEDS Medications: Current Medications Medications (Trade) Dose Ordered Sig/Melisa Start Time Stop Time Status Last Admin Dose Admin Acetaminophen (Tylenol) 500 mg 1X ONCE 11/30/16 21:00 11/30/16 21:02 DC 11/30/16 22:05 500 MG Allopurinol (Zyloprim) 100 mg DAILY 12/01/16 09:00 Aspirin (Children'S Aspirin) 81 mg HS 11/30/16 21:00 11/30/16 22:06 81 MG Carvedilol (Coreg) 3.125 mg BIDWMEALS 12/01/16 08:00 Dabigatran (Pradaxa) 75 mg BID 11/30/16 21:00 11/30/16 22:06 75 MG Dextrose (Dextrose 50%-Water Syringe) 12.5 gm PRN Q15MIN PRN 11/30/16 16:30 Donepezil HCl (Aricept) 10 mg HS 11/30/16 21:00 11/30/16 22:06 10 MG Furosemide (Lasix) 40 mg Q12HR 11/30/16 21:00 11/30/16 22:08 40 MG Insulin Aspart (Novolog) 0-5 UNITS TIDWMEALS 11/30/16 17:00 11/30/16 17:37 5 UNITS Levothyroxine Sodium (Synthroid) 50 mcg DAILY07 12/01/16 07:00 Losartan Potassium (Cozaar) 25 mg DAILY 12/01/16 09:00 Multivitamins (Thera M Plus) 1 tab DAILY 12/01/16 09:00 Multivitamins/ Minerals (Ocuvite Lutein) 1 cap DAILY 12/01/16 09:00 Non-Formulary Medication 66.7 mcg DAILY 12/01/16 09:00 UNV Potassium Chloride (Klor-Con) 10 meq [id number] 12/01/16 08:00 Prednisone (Prednisone) 10 mg DAILY 12/01/16 09:00 Simvastatin (Zocor) 20 mg QHS 11/30/16 21:00 11/30/16 22:05 20 MG Trazodone HCl (Desyrel) 25 mg QHS 11/30/16 21:00 11/30/16 22:06 25 MG LAB Lab: Laboratory Tests Test 11/30/16 16:08 11/30/16 16:35 11/30/16 21:32 12/01/16 04:05 Glucose (Fingerstick) 313mg/dL (70-99) 309mg/dL (70-99) White Blood Count 8.7x10^3/uL (4.0-11.0) Red Blood Count 3.87x10^6/uL (3.50-5.40) Hemoglobin 11.1g/dL (12.0-15.5) Hematocrit 34.4% (36.0-47.0) Mean Corpuscular Volume 89fL (79-100) Mean Corpuscular Hemoglobin 29pg (25-35) Mean Corpuscular Hemoglobin Concent 32g/dL (31-37) Red Cell Distribution Width 19.5% (11.5-14.5) Platelet Count 173x10^3/uL (140-400) Neutrophils (%) (Auto) 89% (31-73) Lymphocytes (%) (Auto) 9% (24-48) Monocytes (%) (Auto) 2% (0-9) Eosinophils (%) (Auto) 0% (0-3) Basophils (%) (Auto) 0% (0-3) Neutrophils # (Auto) 7.7x10^3uL (1.8-7.7) Lymphocytes # (Auto) 0.7x10^3/uL (1.0-4.8) Monocytes # (Auto) 0.2x10^3/uL (0.0-1.1) Eosinophils # (Auto) 0.0x10^3/uL (0.0-0.7) Basophils # (Auto) 0.0x10^3/uL (0.0-0.2) Segmented Neutrophils % 87% (35-66) Band Neutrophils % 3% (0-9) Lymphocytes % 7% (24-48) Monocytes % 3% (0-10) Platelet Estimate Adequate (ADEQUATE) Poikilocytosis Slight Anisocytosis Slight Ovalocytes Few Sodium Level 132mmol/L (136-145) 135mmol/L (136-145) Potassium Level 4.5mmol/L (3.5-5.1) 3.6mmol/L (3.5-5.1) Chloride Level 93mmol/L (98-107) 98mmol/L (98-107) Carbon Dioxide Level 30mmol/L (21-32) 29mmol/L (21-32) Anion Gap 9 (6-14) 8 (6-14) Blood Urea Nitrogen 65mg/dL (7-20) 63mg/dL (7-20) Creatinine 2.0mg/dL (0.6-1.0) 1.9mg/dL (0.6-1.0) Estimated GFR (Cockcroft-Gault) 23.7 25.1 BUN/Creatinine Ratio 33 (6-20) Glucose Level 361mg/dL (70-99) 168mg/dL (70-99) Calcium Level 8.9mg/dL (8.5-10.1) 9.0mg/dL (8.5-10.1) Total Bilirubin 0.8mg/dL (0.2-1.0) Aspartate Amino Transf (AST/SGOT) 73U/L (15-37) Alanine Aminotransferase (ALT/SGPT) 53U/L (14-59) Alkaline Phosphatase 88U/L (46-116) ZS-Fbr-A-Type Natriuretic Peptide 6339pg/mL (0-449) Total Protein 6.5g/dL (6.4-8.2) Albumin 3.5g/dL (3.4-5.0) Albumin/Globulin Ratio 1.2 (1.0-1.7) Test 12/01/16 08:17 Glucose (Fingerstick) 122mg/dL (70-99) PERRY NORTH MD Dec 01, 2016 08:26
[2016-12-01] MEDS ORDERED: [UNRECOGNIZED DRUG - OTHER] PO SCH (09:00)
[2016-12-01] MEDS ORDERED: BIOTIN PO SCH (09:00)
[2016-12-01] MEDS ORDERED: MV IRON MIN PO SCH (09:00)
[2016-12-01] MEDS ORDERED: FOLIC ACID PO SCH (09:00)
[2016-12-01] MEDS: DABIGATRAN ETEXILATE 75 MG CAPSULE. PO SCH ×2 (09:06→20:00)
[2016-12-01] MEDS: MULTIVITAMIN with MINERAL TABLET. PO SCH (09:07)
[2016-12-01] MEDS: predniSONE 10 MG TABLET PO SCH (09:07)
[2016-12-01] MEDS: POTASSIUM CHLORIDE 10 MEQ TABLET.ER. PO SCH (09:07)
[2016-12-01] MEDS: LEVOTHYROXINE 50 MCG TABLET PO SCH (09:07)
[2016-12-01] MEDS: ALLOPURINOL 100 MG TABLET. PO SCH (09:07)
[2016-12-01] MEDS: LOSARTAN POTASSIUM 25 MG TABLET. PO SCH (09:07)
[2016-12-01] MEDS: FUROSEMIDE 40 MG/4 ML VIAL. IVP SCH ×2 (09:08→21:00)
[2016-12-01] MEDS: MULTIVITAMIN EYE FORMULA CAPSULE. PO SCH (09:09)
[2016-12-01] MEDS: CARVEDILOL 3.125 MG TABLET. PO SCH ×2 (09:18→16:37)
[2016-12-01] MEDS: ACETAMINOPHEN 325 MG TABLET. PO PRN ×2 (10:55→20:00)
[2016-12-01 11:00] VITALS: BP_SYST 80
[2016-12-01 15:00] VITALS: BP 111/48
[2016-12-01] MEDS ORDERED: ANTI-COAG MONITOR BY PHARMACY. MC PRN (15:30)
[2016-12-01 19:00] VITALS: BP 141/51
[2016-12-01] MEDS: traZODone 50 MG TABLET. PO SCH (20:00)
[2016-12-01] MEDS: DONEPEZIL HCL 10 MG TABLET. PO SCH (20:00)
[2016-12-01] MEDS: ASPIRIN CHEWABLE 81 MG TABLET. PO SCH (20:00)
[2016-12-01] MEDS: SIMVASTATIN 20 MG TABLET PO SCH (20:00)
--- NOTE | 2016-12-01 20:29 | CARD ---
APPROVED REPORT EXAM: Two-dimensional and M-mode echocardiogram with Doppler and color Doppler. Other Information Quality : GoodHR: 80bpm Rhythm : Atrial Fibrillation INDICATION Atrial Fibrillation LV diastolic and systolic function evaluation 2D DIMENSIONS RVDd3.2 (2.9-3.5cm)Left Atrium(2D)5.1 (1.6-4.0cm) IVSd0.9 (0.7-1.1cm)Aortic Root(2D)1.8 (2.0-3.7cm) LVDd5.4 (3.9-5.9cm)LVOT Diameter2.2 (1.8-2.4cm) PWd0.5 (0.7-1.1cm)LVDs4.1 (2.5-4.0cm) FS (%) 25.2 %SV70.3 ml LVEF(%)49.2 (>50%) Aortic Valve AoV Peak Toni.118.4cm/sAoV VTI23.6cm AO Peak GR.5.6mmHgLVOT VTI 13.72cm AO Mean GR.3mmHg Mitral Valve MV E Hpdtrmuf780.2cm/sMV E Peak Gr.9mmHg MV DECEL [id number] E Mean Gr.4mmHg TDI Lateral E' P. V5.75cm/sMedial E' P. V6.53cm/s E/Lateral E'25.9E/Medial E'22.8 Tricuspid Valve TR P. Neissbuq994cg/sRAP [id number] TR Peak Gr.46mmHg LEFT VENTRICLE The left ventricle is normal size. There is normal left ventricular wall thickness. Left ventricle sy stolic function is mildly impaired. The ejection fraction is calculated at 45-50% . There is mild kristin bal hypokinesis of the left ventricle. There is a flattened septum consistent with right ventricle pr essure overload. The average mitral inflow E wave deceleration time is 172ms. The medial E/E' ratio i s 23. The lateral E/E' ratio is 26. No left ventricle thrombus noted on this study. Small basal infer ior wall aneurysm is noted. RIGHT VENTRICLE The right ventricle is normal size. There is normal right ventricular wall thickness. The right ventr icular systolic function is normal. There is a pacemaker lead in the right ventricle. ATRIA The left atrium is mildly dilated. The right atrium is mildly dilated. The interatrial septum is inta ct with no evidence for an atrial septal defect or patent foramen ovale as noted on 2-D or Doppler im aging. AORTIC VALVE The aortic valve is mildly sclerotic. The aortic valve is trileaflet. Doppler and Color Flow revealed no significant aortic regurgitation. There is no significant aortic valvular stenosis. MITRAL VALVE Mitral annular calcification is mild. The mitral valve leaflets are thickened. There is no evidence o f mitral valve prolapse. There is no mitral valve stenosis. Doppler and Color Flow revealed mild to m oderate mitral regurgitation. TRICUSPID VALVE Doppler and Color Flow revealed moderate tricuspid regurgitation. The pulmonary artery systolic press ure is estimated at 61 mmHg. There is severe pulmonary hypertension. PULMONIC VALVE Doppler and Color Flow revealed trace pulmonic valvular regurgitation. There is no pulmonic valvular stenosis. GREAT VESSELS The aortic root is normal in size. The ascending aorta is normal in size. The pulmonary artery is nor mal. The IVC is dilated and does not collapse. PERICARDIAL EFFUSION There is no evidence of significant pericardial effusion. Critical Notification Critical Value: No <Conclusion> The left ventricle is normal size. There is normal left ventricular wall thickness. Left ventricle systolic function is mildly impaired. The ejection fraction is calculated at 45-50% . There is a diastolic dysfunction with average E prime velocity of 6 cm/s. There is increased left atrial filling pressure with the E/E' ratio of 26 There is no pericardial effusion. There is no mitral stenosis and a moderate mitral regurgitation. The left atrium is enlarged to 5.75 cm. The aortic valve is tricuspid. The aortic valve leaflets are thickened. There is no aortic stenosis or regurgitation. The right ventricle is of a normal size with normal systolic function. The intraventricular septum is flattened indicating a raised right ventricular systolic pressure. There is moderate pulmonary hypertension with a right ventricular systolic pressure of 61 mmHg. The inferior vena cava is at the upper limits of normal with no inspiratory collapse indicating a ruiz sed right atrial pressure. There is moderate tricuspid regurgitation annd a trace pulmonic regurgitation.
--- NOTE | 2016-12-01 21:22 | PDOC ---
Provider Note Provider Note Patient seen and consult dictated. She was hospitalized with edema of her legs. No significant shortness of breath except when walking. Oxygenating well on room air. See echocardiogram report.\ There hasn't been any improvement in LVEF since placing the bi-V pacemaker. She has right heart failure. IV Lasix has resulted in improvement in her edema of the legs. She has been in atrial fibrillation. His been on Pradaxa for 4 weeks and can now undergo cardioversion. This can be performed on 12/03/16. Family complains of rectal bleed. They would like to have GI see her. Will discuss with Dr. Frank. After the cardioversion she would need to take uninterrupted anticoagulation for at least another 4 weeks. Thank you for asking me to see her. JOHAN VAIL MD Dec 01, 2016 21:22
[2016-12-01 23:00] VITALS: BP 92/46
[2016-12-01] MEDS ORDERED: FUROSEMIDE 80 MG TABLET. PO ONE (23:15)
[2016-12-02 03:00] VITALS: BP 119/49
[2016-12-02 04:30] LABS: CALCIUM 9.1 mg/dL (8.5-10.1); CREATININE 1.9 mg/dL (0.6-1.0); GFR 25.1; POTASSIUM 4.1 mmol/L (3.5-5.1)
[2016-12-02] MEDS: LEVOTHYROXINE 50 MCG TABLET PO SCH (06:30)
[2016-12-02 07:00] VITALS: BP 123/63
[2016-12-02] MEDS: ALLOPURINOL 100 MG TABLET. PO SCH (07:55)
[2016-12-02] MEDS: DABIGATRAN ETEXILATE 75 MG CAPSULE. PO SCH ×2 (07:55→21:16)
[2016-12-02] MEDS: MULTIVITAMIN EYE FORMULA CAPSULE. PO SCH (07:56)
[2016-12-02] MEDS: MULTIVITAMIN with MINERAL TABLET. PO SCH (07:56)
[2016-12-02] MEDS: CARVEDILOL 3.125 MG TABLET. PO SCH ×2 (07:56→16:56)
[2016-12-02] MEDS: predniSONE 10 MG TABLET PO SCH (07:56)
[2016-12-02] MEDS: POTASSIUM CHLORIDE 10 MEQ TABLET.ER. PO SCH (07:56)
[2016-12-02] MEDS: LOSARTAN POTASSIUM 25 MG TABLET. PO SCH (07:57)
[2016-12-02] MEDS: INSULIN ASPART 300 UNITS/3 ML INSULN.PEN SQ SCH ×7 (08:00→22:00)
[2016-12-02] MEDS: ACETAMINOPHEN 325 MG TABLET. PO PRN (08:41)
[2016-12-02] MEDS ORDERED: ALPRAZolam 0.25 MG TABLET PO PRN (09:15)
[2016-12-02] MEDS: FUROSEMIDE 40 MG/4 ML VIAL. IVP SCH ×2 (09:29→21:16)
--- NOTE | 2016-12-02 09:38 | CONS ---
DATE OF CONSULTATION: 12/01/2016 HISTORY OF PRESENT ILLNESS: This is an 86-year-old white female who was hospitalized for increasing shortness of breath and swelling of her legs. I first saw her in 2014. At that time she had shortness of breath with exertion. She had said that she had had a cardiac catheterization last year in [place] at which time a vein graft to the OM branch and the ramus and LAD were patent. The ejection fraction was 60%. She underwent a myocardial perfusion imaging study in 2014. It showed a large area of mixed perfusion defect. An echocardiogram showed that the EF had dropped. She underwent a cardiac catheterization in 01/2015 and that is the last cardiac catheterization she has had. The vein graft to the LAD and the ramus were patent; however, the vein graft to the OM branch was totally occluded. Her EF had dropped to 30%. She was advised a BiV pacemaker at that time, but she refused. Her creatinine was 2. The next encounter was in May 2016 when she came in with bradycardia. Even though she deserved a BiV pacemaker, it was not placed because she was bradycardic and was on epinephrine drip. Dr. Crabtree who was the only person to do BiV pacemaker was not available. Thus a dual chamber pacemaker was placed. In August 2016, she was noted to have gone into atrial fibrillation, which seemed to have occurred sometime in July. She did undergo placement of a BiV pacemaker in 09/2016. The right ventricular lead had the higher threshold. The output was increased and she was pacing BiV. She developed a lot of ecchymosis. Anticoagulation in preparation for cardioversion was not immediately started. It was started around the first week of November in the form of Pradaxa 75 mg twice a day. She was admitted in October with shortness of breath. She was at that time placed on DuoNeb treatments. This is because she has 90 pack years of smoking. She smoked 3 packs of cigarettes a day for 30 years. She stopped 20 years ago. With this, she was feeling better. The Lasix dose was increased. She had bilateral pleural effusion. I felt that the pleural effusion was not large enough to be tapped neither did the diamond die maker feels so, but when I saw her recently in the office around the first week of November, she was feeling better, was able to walk better. She still does not need any oxygen. She was hospitalized now with increasing swelling of her legs. Her dose of Lasix was increased to 60 mg a day. Her creatinine is being watched very carefully because of an increase in creatinine in the past. Her normal creatinine is about 1.6. Soon after placing the BiV pacemaker, it went up to 2. She lives at home, but her daughter is with her quite a bit. She gets short of breath on walking short distance at home. She has no orthopnea or paroxysmal nocturnal dyspnea. Recently, her legs have been swelling more. As stated before, she smoked 3 packs of cigarettes a day for 30 years and stopped 20 years ago. PRESENT MEDICATIONS: 1. Allopurinol 100 mg a day. 2. Pradaxa 75 mg twice a day. 3. Aspirin 81 mg a day. 4. Carvedilol 3.125 mg a day. 5. Furosemide 60 mg a day. 6. NovoLog 5 units before each meal. 7. Levemir at night. 8. DuoNeb via nebulizer 3 times a day. 9. Synthroid 50 mcg a day. 10. Losartan 25 mg a day. 11. Lutein. 12. Protonix 40 mg a day. 13. Potassium chloride 10 mEq a day. 14. Prednisone 10 mg a day, but I do not know why. 15. Simvastatin 20 mg at night. PHYSICAL EXAMINATION: GENERAL: She was in no distress and was able to lie flat. VITAL SIGNS: The heart rate was 80 per minute and irregular. The blood pressure is 140/80. LUNGS: Clear. HEART: The heart sounds are normal. There is a grade 1/6 systolic murmur at the apex. ABDOMEN: Soft. EXTREMITIES: There is 2+ edema of the legs. There is some oozing. LABORATORY DATA: An EKG has not yet been done. A chest x-ray showed cardiomegaly. There was recurrent moderate left basilar pleural parenchymal opacities compatible with pleural fluid and underlying atelectasis. A CT scan was obtained today. It was reported as showing a similar amount of pleural effusion as in October. In October, she was seen in consultation by Dr. Cope who felt that it was not necessary to do a thoracentesis especially since it was not very large and because the patient was on room air. He does see no need for a thoracentesis at this time. An echocardiogram was done during this hospitalization. Her EF has certainly improved since placement of the BiV pacemaker in September and it is now 50%. There is also no significant diastolic dysfunction. She continues to have a moderate mitral regurgitation. The left atrium is enlarged. She has pulmonary hypertension. She also has tricuspid regurgitation. Her inferior vena cava is at the upper limits of normal with no inspiratory collapse indicating an increase in the right atrial pressure. IMPRESSION: 1. Significant right heart failure secondary to pulmonary hypertension and tricuspid regurgitation. 2. Probable mild congestive heart failure secondary to a mixed diastolic and systolic dysfunction and mitral regurgitation. 3. Persistent atrial fibrillation since 07/2016. 4. Severe chronic obstructive pulmonary disease. 5. Rectal bleed to be evaluated. PLAN: She is receiving IV diuretics and her leg edema seems to have improved. We will need to continue to treat her pulmonary status and underlying COPD with nebulizers. She has been on anticoagulation now for 4 weeks and we could cardiovert her on 12/03/2016. The family is concerned about her rectal bleed. I would like to have GI see her. If GI workup is contemplated, her anticoagulation would need to be held and her cardioversion will need to be postponed. We will discuss this with Dr. Frank tomorrow. Also, during this hospitalization, we will obtain a pacemaker interrogation because the right ventricular lead had the higher threshold. We will also need to make sure at this point that she is still BiV pacing. I believe, overall the patient is doing very well, being 86 years old. She does get somewhat short of breath on walking short distance and this could be contributed to by her COPD also. Thank you very much for asking me to see her. JOHAN VAIL MD DR: CLAUDIA/peter JOB#: [id number] / [id number]
--- NOTE | 2016-12-02 09:40 | EKG ---
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
[2016-12-02 11:00] VITALS: BP 118/57
--- NOTE | 2016-12-02 12:24 | PDOC2 ---
GI CONSULT Reason For Consult: Rectal bleed HPI: HPI: 86 y/o female w/ A Fib on anticoagulation w/ cardioversion planned, GI asked to see re: rectal bleeding. History from RN, family, pt. No bleeding witnessed per staff; however, one family member concerned w/ bright red blood w/ BM yesterday - it's unclear whether this was a streak of blood on the tissues or mixed w/ stool. She has had two stools since w/o bleeding. Change in bowel habits ~2 weeks ago. Was constipated, took stool softeners which caused diarrhea, so stopped. Since has had varying size of soft stools, making wiping difficult. Pt reports her "butt has a sore that bleeds," attributes this to "rough" toilet paper here. Family thinks she has had a previous colonoscopy years ago, pt feels this was scheduled but cancelled for a heart issue. No abd pain, weight loss, n/v, reflux, change in appetite, or previous episodes of bleeding. Denies NSAID use. On prednisone. Home meds include pantoprazole. No previous EGD. PMH: PMH: A Fib, CAD, CHF, tricuspic regurg, pulm hypertension, COPD, DM, OA, gout, depression/anxiety, ?dementia, coronary stent, CABG, cholecystectomy, appendectomy FH: Family History: No pertinent hx Social History: Smoke: Quit Drugs: None ROS: GEN: Denies fevers, chills, sweats HEENT: Denies blurred vision, sore throat CV: Denies chest pain RESP: Denies shortness of air, cough GI: Per HPI : Denies hematuria, dysuria ENDO: Denies weight changes NEURO: Denies confusion, dizziness MSK: BLE swelling SKIN: Denies jaundice, pruritus VItals: Vitals: Vital Signs Date Time Temp Pulse Resp B/P Pulse Ox O2 Delivery O2 Flow Rate FiO2 12/02/16 11:00 98.1 80 16 118/57 98 Room Air 98.1 Labs: Labs: Laboratory Tests Test 12/01/16 16:35 12/01/16 20:48 12/02/16 03:32 12/02/16 07:13 Glucose (Fingerstick) 318mg/dL (70-99) 222mg/dL (70-99) 145mg/dL (70-99) Sodium Level 132mmol/L (136-145) Potassium Level 4.1mmol/L (3.5-5.1) Chloride Level 96mmol/L (98-107) Carbon Dioxide Level 31mmol/L (21-32) Anion Gap 5 (6-14) Blood Urea Nitrogen 68mg/dL (7-20) Creatinine 1.9mg/dL (0.6-1.0) Estimated GFR (Cockcroft-Gault) 25.1 Glucose Level 179mg/dL (70-99) Calcium Level 9.1mg/dL (8.5-10.1) Magnesium Level 2.2mg/dL (1.8-2.4) Thyroid Stimulating Hormone (TSH) 6.530uIU/mL (0.358-3.74) Allergies: Coded Allergies: Penicillins (Verified Allergy, Intermediate, 01/26/15) ibuprofen (Verified Allergy, Intermediate, 01/26/15) Medications: Current Medications Medications (Trade) Dose Ordered Sig/Melisa Route PRN Reason Start Time Stop Time Status Last Admin Dose Admin Info (Anti-Coagulation Monitoring By Pharmacy) 1 each PRN DAILY PRN MC SEE COMMENTS 12/01/16 15:30 12/01/16 16:50 Furosemide (Lasix) 80 mg 1X ONCE PO 12/01/16 23:15 12/01/16 23:16 DC 12/01/16 23:36 Imaging: Imaging: CXR 11/30/16 IMPRESSION: 1. Cardiomegaly and aortic atherosclerosis. 2. Ongoing or recurrent moderate left basilar pleural/parenchymal opacities compatible with pleural fluid and underlying atelectasis/infiltrate. PE: GEN: NAD, sitting in chair, [place] HEENT: Atraumatic, PERRL LUNGS: CTAB anteriorly HEART: RRR ABD: NABS, S/ND/NT EXTREMITY: BLE pitting edema NEURO/PSYCH: A & O 3 RECTAL: soft brown stool (cleaned w/ moist wipe), erythema and excoriations A/P: A/P: Rectal bleeding -possibly once yesterday, no recurrence A Fib, anticoagulated, cardioversion planned CRC screen -?previous colonoscopy ?change in bowel habits -constipation, then diarrhea w/ stool softeners, now some irregularity w/ soft stools and repeated wiping -- Suspect bleeding is from external irritation from repeated wiping. No plans for colonoscopy. Other per Dr. Wheeler. HALEY ZAMORANO Dec 02, 2016 12:24
[2016-12-02 15:00] VITALS: BP 120/62
--- NOTE | 2016-12-02 15:01 | PDOC ---
GENERAL General: vss and afebrile. awake and alert and daughter in attendance. creatinine at 1.9 with diuresis and [id number]. O>I and with decreasing edema and was able to walk in halls with less sob. cardiology plans for cardioversion noted and agree. continue diuresis and watch kidney function. Problems: VITAL SIGNS Vital Signs: Vital Signs Date Time Temp Pulse Resp B/P Pulse Ox O2 Delivery O2 Flow Rate FiO2 12/02/16 11:00 98.1 80 16 118/57 98 Room Air 98.1 I & O I & O Intake and Output 12/02/16 07:00 Intake Total 1080 ml Output Total 2875 ml Balance -1795 ml Intake Oral 1080 ml Output Urine Total 1975 ml Stool Total 900 ml # Bowel Movements 1 ALLERGIES Allergies: Allergies Coded Allergies Type Severity Reaction Last Updated Verified Penicillins Allergy Intermediate 01/26/15 Yes ibuprofen Allergy Intermediate 01/26/15 Yes MEDS Medications: Current Medications Medications (Trade) Dose Ordered Sig/Melisa Start Time Stop Time Status Last Admin Dose Admin Acetaminophen (Tylenol) 500 mg 1X ONCE 11/30/16 21:00 11/30/16 21:02 DC 11/30/16 22:05 500 MG Allopurinol (Zyloprim) 100 mg DAILY 12/01/16 09:00 12/02/16 07:55 100 MG Alprazolam (Xanax) 0.25 mg PRN BID PRN 12/02/16 09:15 Aspirin (Children'S Aspirin) 81 mg HS 11/30/16 21:00 12/01/16 20:00 81 MG Calcium Polycarbophil (Fibercon) 625 mg QTUTHSASU 12/02/16 16:00 Carvedilol (Coreg) 3.125 mg BIDWMEALS 12/01/16 08:00 12/02/16 07:56 3.125 MG Dabigatran (Pradaxa) 75 mg BID 11/30/16 21:00 12/02/16 07:55 75 MG Dextrose (Dextrose 50%-Water Syringe) 12.5 gm PRN Q15MIN PRN 11/30/16 16:30 Donepezil HCl (Aricept) 10 mg HS 11/30/16 21:00 12/01/16 20:00 10 MG Fentanyl Citrate (Fentanyl 2ml Vial) 50 mcg PRN Q5MIN PRN 12/03/16 07:00 12/03/16 18:00 Furosemide (Lasix) 80 mg 1X ONCE 12/01/16 23:15 12/01/16 23:16 DC 12/01/16 23:36 80 MG Hydromorphone HCl (Dilaudid) 0.5 mg PRN Q10MIN PRN 12/03/16 07:00 12/03/16 18:00 Info (Anti-Coagulation Monitoring By Pharmacy) 1 each PRN DAILY PRN 12/01/16 15:30 12/01/16 16:50 1 EACH Insulin Aspart (Novolog) 0-5 UNITS TIDWMEALS 11/30/16 17:00 12/02/16 11:54 3 UNITS Lactated Ringer's (Iv Lactated Ringers) 1,000 ml @ 30 mls/hr Q24H 12/03/16 07:00 12/03/16 18:59 Levothyroxine Sodium (Synthroid) 50 mcg DAILY07 12/01/16 07:00 12/02/16 06:30 50 MCG Lidocaine HCl 2 ml PRN 1X PRN 12/03/16 07:00 12/03/16 18:00 Losartan Potassium (Cozaar) 25 mg DAILY 12/01/16 09:00 12/02/16 07:57 25 MG Morphine Sulfate 1 mg 1 mg PRN Q10MIN PRN 12/03/16 07:00 12/03/16 18:00 Multivitamins (Thera M Plus) 1 tab DAILY 12/01/16 09:00 12/02/16 07:56 1 TAB Multivitamins/ Minerals (Ocuvite Lutein) 1 cap DAILY 12/01/16 09:00 12/02/16 07:56 1 CAP Non-Formulary Medication 66.7 mcg DAILY 12/01/16 09:00 UNV Potassium Chloride (Klor-Con) 10 meq DAILYWBKFT 12/01/16 08:00 12/02/16 07:56 10 MEQ Prednisone (Prednisone) 10 mg DAILY 12/01/16 09:00 12/02/16 07:56 10 MG Prochlorperazine Edisylate (Compazine) 5 mg PACU PRN PRN 12/03/16 07:00 12/03/16 18:00 Simvastatin (Zocor) 20 mg QHS 11/30/16 21:00 12/01/16 20:00 20 MG Trazodone HCl (Desyrel) 25 mg QHS 11/30/16 21:00 12/01/16 20:00 25 MG LAB Lab: Laboratory Tests Test 12/01/16 16:35 12/01/16 20:48 12/02/16 03:32 12/02/16 07:13 Glucose (Fingerstick) 318mg/dL (70-99) 222mg/dL (70-99) 145mg/dL (70-99) Sodium Level 132mmol/L (136-145) Potassium Level 4.1mmol/L (3.5-5.1) Chloride Level 96mmol/L (98-107) Carbon Dioxide Level 31mmol/L (21-32) Anion Gap 5 (6-14) Blood Urea Nitrogen 68mg/dL (7-20) Creatinine 1.9mg/dL (0.6-1.0) Estimated GFR (Cockcroft-Gault) 25.1 Glucose Level 179mg/dL (70-99) Calcium Level 9.1mg/dL (8.5-10.1) Magnesium Level 2.2mg/dL (1.8-2.4) Thyroid Stimulating Hormone (TSH) 6.530uIU/mL (0.358-3.74) PERRY NORTH MD Dec 02, 2016 15:01
[2016-12-02] MEDS ORDERED: CALCIUM POLYCARBOPHIL 625 MG TABLET PO SCH (16:00)
[2016-12-02 19:00] VITALS: BP 90/46
[2016-12-02] MEDS: ASPIRIN CHEWABLE 81 MG TABLET. PO SCH (21:16)
[2016-12-02] MEDS: DONEPEZIL HCL 10 MG TABLET. PO SCH (21:16)
[2016-12-02] MEDS: traZODone 50 MG TABLET. PO SCH (21:16)
[2016-12-02] MEDS: SIMVASTATIN 20 MG TABLET PO SCH (21:16)
[2016-12-02 23:00] VITALS: BP 117/50
[2016-12-03 03:00] VITALS: BP 114/61
[2016-12-03 05:39] LABS: CALCIUM 9.2 mg/dL (8.5-10.1); CREATININE 2.2 mg/dL (0.6-1.0); GFR 21.2
[2016-12-03] MEDS: LEVOTHYROXINE 50 MCG TABLET PO SCH (06:13)
[2016-12-03 07:00] VITALS: BP 117/55
[2016-12-03] MEDS ORDERED: MORPHINE SULFATE 2 MG/ML DISP.SYRIN. IV PRN (07:00)
[2016-12-03] MEDS ORDERED: IV RINGERS,LACTATED 1000ML 1,000 ML IV SCH (07:00)
[2016-12-03] MEDS ORDERED: HYDROmorphone 2 MG/ML VIAL IV PRN (07:00)
[2016-12-03] MEDS ORDERED: LIDOCAINE 1% 1 ML SYRINGE. ID PRN (07:00)
[2016-12-03] MEDS ORDERED: PROCHLORPERAZINE 10 MG/2 ML VIAL. IV PRN (07:00)
[2016-12-03] MEDS ORDERED: fentaNYL PF VIAL 100 MCG/2 ML VIAL IV PRN ×2 (07:00)
[2016-12-03] MEDS: INSULIN ASPART 300 UNITS/3 ML INSULN.PEN SQ SCH ×7 (07:30→20:54)
--- NOTE | 2016-12-03 08:30 | PDOC ---
GENERAL General: vss and afebrile. awake and alert and sob better. edema almost resolved. O>I continues. creatinine up to 2.2 but will accept same with decreased volume making patient feel much better. cardioversion for today with likely dc weekend. Problems: VITAL SIGNS Vital Signs: Vital Signs Date Time Temp Pulse Resp B/P Pulse Ox O2 Delivery O2 Flow Rate FiO2 12/03/16 03:00 97.6 80 18 114/61 99 97.6 12/02/16 20:00 Room Air I & O I & O Intake and Output 12/03/16 06:59 Intake Total 840 ml Output Total 2300 ml Balance -1460 ml Intake Oral 840 ml Output Urine Total 2300 ml ALLERGIES Allergies: Allergies Coded Allergies Type Severity Reaction Last Updated Verified Penicillins Allergy Intermediate 01/26/15 Yes ibuprofen Allergy Intermediate 01/26/15 Yes MEDS Medications: Current Medications Medications (Trade) Dose Ordered Sig/Melisa Start Time Stop Time Status Last Admin Dose Admin Acetaminophen (Tylenol) 500 mg 1X ONCE 11/30/16 21:00 11/30/16 21:02 DC 11/30/16 22:05 500 MG Allopurinol (Zyloprim) 100 mg DAILY 12/01/16 09:00 12/02/16 07:55 100 MG Alprazolam (Xanax) 0.25 mg PRN BID PRN 12/02/16 09:15 Aspirin (Children'S Aspirin) 81 mg HS 11/30/16 21:00 12/02/16 21:16 81 MG Calcium Polycarbophil (Fibercon) 625 mg QTUTHSASU 12/02/16 16:00 12/02/16 16:56 625 MG Carvedilol (Coreg) 3.125 mg BIDWMEALS 12/01/16 08:00 12/02/16 16:56 3.125 MG Dabigatran (Pradaxa) 75 mg BID 11/30/16 21:00 12/02/16 21:16 75 MG Dextrose (Dextrose 50%-Water Syringe) 12.5 gm PRN Q15MIN PRN 11/30/16 16:30 Donepezil HCl (Aricept) 10 mg HS 11/30/16 21:00 12/02/16 21:16 10 MG Fentanyl Citrate (Fentanyl 2ml Vial) 50 mcg PRN Q5MIN PRN 12/03/16 07:00 12/03/16 18:00 Furosemide (Lasix) 80 mg 1X ONCE 12/01/16 23:15 12/01/16 23:16 DC 12/01/16 23:36 80 MG Hydromorphone HCl (Dilaudid) 0.5 mg PRN Q10MIN PRN 12/03/16 07:00 12/03/16 18:00 Info (Anti-Coagulation Monitoring By Pharmacy) 1 each PRN DAILY PRN 12/01/16 15:30 12/01/16 16:50 1 EACH Insulin Aspart (Novolog) 0-5 UNITS TIDWMEALHC 12/02/16 22:00 12/02/16 22:00 5 UNITS Lactated Ringer's (Iv Lactated Ringers) 1,000 ml @ 30 mls/hr Q24H 12/03/16 07:00 12/03/16 18:59 Levothyroxine Sodium (Synthroid) 50 mcg DAILY07 12/01/16 07:00 12/02/16 06:30 50 MCG Lidocaine HCl 2 ml PRN 1X PRN 12/03/16 07:00 12/03/16 18:00 Losartan Potassium (Cozaar) 25 mg DAILY 12/01/16 09:00 12/02/16 07:57 25 MG Morphine Sulfate 1 mg 1 mg PRN Q10MIN PRN 12/03/16 07:00 12/03/16 18:00 Multivitamins (Thera M Plus) 1 tab DAILY 12/01/16 09:00 12/02/16 07:56 1 TAB Multivitamins/ Minerals (Ocuvite Lutein) 1 cap DAILY 12/01/16 09:00 12/02/16 07:56 1 CAP Non-Formulary Medication 66.7 mcg DAILY 12/01/16 09:00 UNV Potassium Chloride (Klor-Con) 10 meq DAILYWBKFT 12/01/16 08:00 12/02/16 07:56 10 MEQ Prednisone (Prednisone) 10 mg DAILY 12/01/16 09:00 12/02/16 07:56 10 MG Prochlorperazine Edisylate (Compazine) 5 mg PACU PRN PRN 12/03/16 07:00 12/03/16 18:00 Simvastatin (Zocor) 20 mg QHS 11/30/16 21:00 12/02/16 21:16 20 MG Trazodone HCl (Desyrel) 25 mg QHS 11/30/16 21:00 12/02/16 21:16 25 MG LAB Lab: Laboratory Tests Test 12/02/16 11:36 12/02/16 16:06 12/02/16 20:58 12/03/16 04:50 Glucose (Fingerstick) 210mg/dL (70-99) 278mg/dL (70-99) 332mg/dL (70-99) Sodium Level 134mmol/L (136-145) Potassium Level 4.0mmol/L (3.5-5.1) Chloride Level 94mmol/L (98-107) Carbon Dioxide Level 35mmol/L (21-32) Anion Gap 5 (6-14) Blood Urea Nitrogen 71mg/dL (7-20) Creatinine 2.2mg/dL (0.6-1.0) Estimated GFR (Cockcroft-Gault) 21.2 Glucose Level 176mg/dL (70-99) Calcium Level 9.2mg/dL (8.5-10.1) PERRY NORTH MD Dec 03, 2016 08:30
[2016-12-03 11:19] VITALS: BP 121/63
[2016-12-03] MEDS: POTASSIUM CHLORIDE 10 MEQ TABLET.ER. PO SCH (12:05)
[2016-12-03] MEDS: FUROSEMIDE 40 MG/4 ML VIAL. IVP SCH ×2 (12:05→20:47)
[2016-12-03] MEDS: MULTIVITAMIN EYE FORMULA CAPSULE. PO SCH (12:05)
[2016-12-03] MEDS: DABIGATRAN ETEXILATE 75 MG CAPSULE. PO SCH ×2 (12:05→20:46)
[2016-12-03] MEDS: CARVEDILOL 3.125 MG TABLET. PO SCH ×2 (12:06→17:51)
[2016-12-03] MEDS: MULTIVITAMIN with MINERAL TABLET. PO SCH (12:06)
[2016-12-03] MEDS: ALLOPURINOL 100 MG TABLET. PO SCH (12:06)
[2016-12-03] MEDS: LOSARTAN POTASSIUM 25 MG TABLET. PO SCH (12:06)
[2016-12-03] MEDS: predniSONE 10 MG TABLET PO SCH (12:06)
--- NOTE | 2016-12-03 12:58 | PDOC ---
Subjective: Subjective: No bleeding per family/pt. Objective: Objective: No bleeding per RN, possible DC today. Vital Signs: Vital Signs Date Time Temp Pulse Resp B/P Pulse Ox O2 Delivery O2 Flow Rate FiO2 12/03/16 12:06 82 121/63 12/03/16 11:19 97.4 20 92 Room Air 97.4 12/03/16 07:00 2.0 Labs: Laboratory Tests Test 12/02/16 16:06 12/02/16 20:58 12/03/16 04:50 12/03/16 07:42 Glucose (Fingerstick) 278mg/dL 332mg/dL 162mg/dL Sodium Level 134mmol/L Potassium Level 4.0mmol/L Chloride Level 94mmol/L Carbon Dioxide Level 35mmol/L Anion Gap 5 Blood Urea Nitrogen 71mg/dL Creatinine 2.2mg/dL Estimated GFR (Cockcroft-Gault) 21.2 Glucose Level 176mg/dL Calcium Level 9.2mg/dL PE: GEN: NAD, in restroom on toilet NEURO/PSYCH: A & O 3 A/P: Rectal bleeding - no recurrence -likely from hemorrhoids/excoriations -low-dose fiber started yesterday -- Continue same per GI. HALEY ZAMORANO Dec 03, 2016 12:58
[2016-12-03 15:19] VITALS: BP 111/53
--- NOTE | 2016-12-03 19:26 | PDOC ---
Provider Note Provider Note She has a high CHADSVasc Score. This being the case she would need to have been on anticoagulation for 4 weeks before doing a cardioversion without a DES. Despite IV Lasix to the point of increasing BUN/creatinine she remains short of breath on ambulation. I thus requested a 6 minute walk test. She desaturates with exertion. Lungs are clear. Will obtain a chest x-ray after diuresis This desaturation with ambulation is characteristic of COPD rather than CHF. I believe her CHF is as controlled as is going to be. Edema of her leg is secondary to right heart failure and pulmonary hypertension and again related to her lungs. She has a [id number] history of smoking. Her COPD is more symptomatic than the CHF. Will check her for nocturnal desaturation tonight. She will need portable oxygen at home. Daughter wants her to have a portable oxygen conservator. From what I understand Medicare will not pay for the conservator if portable tanks have already been delivered. The conservator will thus have to be requested as the first measure. Okay with me to be discharged tomorrow. Her oxygen requirements have to be optimized before cardioversion. JOHAN VAIL MD Dec 03, 2016 19:26
[2016-12-03 19:46] VITALS: BP 133/43
[2016-12-03] MEDS: SIMVASTATIN 20 MG TABLET PO SCH (20:46)
[2016-12-03] MEDS: ASPIRIN CHEWABLE 81 MG TABLET. PO SCH (20:46)
[2016-12-03] MEDS: DONEPEZIL HCL 10 MG TABLET. PO SCH (20:46)
[2016-12-03] MEDS: traZODone 50 MG TABLET. PO SCH (20:47)
[2016-12-03 23:34] VITALS: BP 125/44
[2016-12-04 03:33] VITALS: BP 121/60
[2016-12-04] MEDS: LEVOTHYROXINE 50 MCG TABLET PO SCH (06:51)
[2016-12-04 07:05] VITALS: BP 94/47
[2016-12-04 07:29] LABS: CREATININE 1.9 mg/dL (0.6-1.0); GFR 25.1; POTASSIUM 3.6 mmol/L (3.5-5.1)
[2016-12-04] MEDS: INSULIN ASPART 300 UNITS/3 ML INSULN.PEN SQ SCH ×4 (08:00→12:58)
[2016-12-04] MEDS: CARVEDILOL 3.125 MG TABLET. PO SCH (08:00)
[2016-12-04] MEDS: MULTIVITAMIN EYE FORMULA CAPSULE. PO SCH (08:29)
[2016-12-04] MEDS: POTASSIUM CHLORIDE 10 MEQ TABLET.ER. PO SCH (08:32)
[2016-12-04] MEDS: predniSONE 10 MG TABLET PO SCH (08:33)
[2016-12-04] MEDS: DABIGATRAN ETEXILATE 75 MG CAPSULE. PO SCH (08:33)
[2016-12-04] MEDS: LOSARTAN POTASSIUM 25 MG TABLET. PO SCH (08:36)
[2016-12-04] MEDS: ALLOPURINOL 100 MG TABLET. PO SCH (08:37)
[2016-12-04] MEDS: MULTIVITAMIN with MINERAL TABLET. PO SCH (08:37)
--- NOTE | 2016-12-04 09:11 | DISCH ---
DISCHARGE INSTRUCTIONS Condition on Discharge Condition on Discharge: Stable Activity After Discharge Activity Instructions for Disc: No restrictions Diet after Discharge Diet after Discharge: Low Sodium 4 gm Follow-Up Follow up with: per SANDRA Ritchie MD Dec 04, 2016 09:11
--- NOTE | 2016-12-04 09:14 | PDOC ---
Provider Note Provider Note [id number] SANDRA LANG MD Dec 04, 2016 09:14
--- NOTE | 2016-12-04 10:01 | DS ---
DATE OF DISCHARGE: 12/04/2016 HOSPITAL SUMMARY: The patient has a history of COPD and congestive heart failure who came in with increasing edema and symptoms. Chest x-ray showed mild cardiomegaly and some degree of pleural fluid. BUN was high at 65, creatinine 2.0 and remained stable there. BNP high at 6339. Liver function tests were normal. Blood sugars were labile throughout the hospital stay. TSH slightly elevated at 6.5. Urine culture had no growth. Echocardiogram showed ejection fraction slightly low at 45-50% with some degree of diastolic dysfunction and moderate pulmonary hypertension. She received IV Lasix throughout the hospital stay and oxygen levels have been good, and vital signs are stable and she is comfortable, will be followed as an outpatient at this point. FINAL DIAGNOSES: 1. Acute combined systolic and diastolic congestive heart failure. 2. Pulmonary hypertension secondary to chronic obstructive pulmonary disease. 3. Chronic kidney disease. 4. Multifactorial. OPERATIONS, PROCEDURES, COMPLICATIONS: None. CONSULTATIONS: Dr. Badillo. DISPOSITION: All medications remain the same. Dr. Badillo has been discussing the idea of cardioversion for intermittent atrial fibrillation, but the patient will remain anticoagulated with Eliquis and aspirin for now. Office followup with Dr. Frank in two weeks regarding renal function and electrolytes. Prognosis is guarded because of her significant cardiac and pulmonary problems. SANDRA LANG MD DR: CHERY/peter JOB#: [id number] / [id number]
[2016-12-04 11:00] VITALS: BP 91/47
--- NOTE | 2016-12-04 13:05 | RAD ---
Portable AP upright chest x-ray performed at 1231 History: Follow-up of CHF Comparison: November 30, 2016. IMPRESSION: Persistent left lung base infiltrate or atelectasis in association with a small left-sided pleural effusion is unchanged. Right lung field remains clear. No pneumothorax is seen. Pacemaker and sternotomy are again noted. The heart size and mediastinum are stable.
--- NOTE | 2016-12-05 16:39 | RESP ---
DATE OF SERVICE: 12/03/2016 ATTENDING PHYSICIAN: Dr. Badillo. The patient underwent spirometry dated 12/03/2016. The FEV1 to FVC ratio was 91%. FEV1 was 61% of predicted at 980 mL. FVC was 1.07 liters at 50% of predicted. IMPRESSION: Spirometry indicative of restrictive disorder. Recommend full pulmonary function test to quantitate the restriction. SHANA RUIZ MD DR: LAUREANO/peter JOB#: [id number] / [id number]
--- NOTE | 2016-12-05 16:55 | RESP ---
DATE OF SERVICE: 12/03/2016 ATTENDING PHYSICIAN: Dr. Frank. The patient underwent a nocturnal desaturation study performed on 12/03/2016. Total time monitored 5 hours and 9 minutes. Total time spent between 80% and 90% was 31 minutes, 7% of the total time. There were periods of oxyhemoglobin desaturation below 88%. There was a sawtooth pattern to the O2 sat monitor compatible with a possibility of obstructive sleep apnea. IMPRESSION: Abnormal nocturnal desaturation study. If clinically warranted, recommend a polysomnogram. SHANA RUIZ MD DR: LAUREANO/peter JOB#: [id number] / [id number] JOHAN Courtney MD
== END 2016-12-04 13:15 | disposition home or self-care (01) | DRG 292 ==
LOC: 5 SOUTH 13:40
PROVIDERS: ADMIT Family Medicine; ATTEND Family Medicine
DX: I50.41 Acute combined systolic (congestive) and diastolic (congestive) heart failure (principal); E87.1 Hypo-osmolality and hyponatremia; I48.1 Persistent atrial fibrillation; J98.11 Atelectasis; K62.5 Hemorrhage of anus and rectum; E11.22 Type 2 diabetes mellitus with diabetic chronic kidney disease; F03.90 Unspecified dementia, unspecified severity, without behavioral disturbance, psychotic disturbance, mood disturbance, and anxiety; I08.1 Rheumatic disorders of both mitral and tricuspid valves; I25.10 Atherosclerotic heart disease of native coronary artery without angina pectoris; I27.2 Other secondary pulmonary hypertension; I70.0 Atherosclerosis of aorta; J44.9 Chronic obstructive pulmonary disease, unspecified; K59.00 Constipation, unspecified; N18.3 Chronic kidney disease, stage 3 (moderate); D64.9 Anemia, unspecified; Z79.01 Long term (current) use of anticoagulants; Z79.4 Long term (current) use of insulin; Z79.82 Long term (current) use of aspirin; Z79.899 Other long term (current) drug therapy; Z87.891 Personal history of nicotine dependence; Z95.0 Presence of cardiac pacemaker; Z95.1 Presence of aortocoronary bypass graft; Z95.5 Presence of coronary angioplasty implant and graft; Z88.0 Allergy status to penicillin; Z88.8 Allergy status to other drugs, medicaments and biological substances
CPT/HCPCS: 36415; 71010; 80048; 80053; 82947; 83735; 83880; 84443; 85007; 85027; 87086; 93005; 93306; 94060; 94620; 94799; J1815; J1940; J7120; J7512

== ENCOUNTER → 2017-05-06 | Outpatient (CLI) | payer MEDICARE, OTHER ==
[~2017-05-06] MED LIST changes: +ASPI-630 PO; -ASPI81TA2 PO; +DOCU-109 PO; -DOCU-27 PO; -DOXY25TA PO; +DOXY25TA42 PO; -HYDR-2666 PO; +HYDR-2758 PO; -INSU100V10 SQ; +INSU100V11 SQ; -LUTE20CA2 PO; +LUTE20CA4 PO; -MELO-150 PO; +MELO15TA23 PO; -POTA10TA10 PO; +POTA10TA12 PO
--- NOTE | 2017-05-06 10:17 | KCIC ---
CHEST AP ONLY History: Shortness of air, hypoxia Comparison: December 04, 2016 Findings: There is again left electronic cardiac device. There has been a median sternotomy. There is atherosclerotic calcification near the aortic arch. There is no new lobar consolidation, pleural fluid, pneumothorax. Impression: 1. There is no evidence of acute cardiopulmonary disease. Electronically signed by: Montez Lam MD (05/06/2017 10:14 AM) [id number]
== END | disposition home or self-care (01) ==
LOC: KCIC 09:15
PROVIDERS: ATTEND Specialist
DX: R09.02 Hypoxemia (principal); R06.02 Shortness of breath
CPT/HCPCS: 71010

== ENCOUNTER 2017-09-09 15:36 | Inpatient (IN) | payer MEDICARE, OTHER ==
[2017-09-09] MEDS: ONDANSETRON PF 4 MG/2 ML VIAL. IV (16:54)
[2017-09-09 16:55] LABS: ADD MAN DIFF? NO
[2017-09-09 17:00] LABS: BASO % 0 % (0-3); EOS % 0 % (0-3); HEMATOCRIT 35.9 % (36.0-47.0); HEMOGLOBIN 11.7 g/dL (12.0-15.5); LYMPH # 2.3 x10^3/uL (1.0-4.8); LYMPH % 16 % (24-48); MEAN CORPUSCULAR HEMOGLOBIN 31 pg (25-35); MEAN CORPUSCULAR HGB CONC 33 g/dL (31-37); MEAN CORPUSCULAR VOLUME 96 fL (79-100); MONO # 0.7 x10^3/uL (0.0-1.1); MONO % 5 % (0-9); NEUT # 11.1 x10^3uL (1.8-7.7); NEUT % 79 % (31-73); PLATELET COUNT 211 x10^3/uL (140-400); RED BLOOD COUNT 3.73 x10^6/uL (3.50-5.40); RED CELL DISTRIBUTION WIDTH 15.4 % (11.5-14.5); WHITE BLOOD COUNT 14.2 x10^3/uL (4.0-11.0)
[2017-09-09 17:05] LABS: ANION GAP 8 (6-14); BLOOD UREA NITROGEN 59 mg/dL (7-20); BUN/CREATININE RATIO 28 (6-20); CALCIUM 9.7 mg/dL (8.5-10.1); CARBON DIOXIDE 29 mmol/L (21-32); CHLORIDE 95 mmol/L (98-107); CREATININE 2.1 mg/dL (0.6-1.0); GFR 22.3; GLUCOSE 363 mg/dL (70-99); POTASSIUM 4.5 mmol/L (3.5-5.1); SODIUM 132 mmol/L (136-145)
[2017-09-09 17:10] LABS: INR 1.1 (0.8-1.1); PARTIAL THROMBOPLASTIN TIME 24 SEC (24-38); PROTHROMBIN TIME PATIENT 13.7 SEC (11.7-14.0)
[2017-09-09 17:11] LABS: ALBUMIN 3.6 g/dL (3.4-5.0); ALBUMIN/GLOBULIN RATIO 1.1 (1.0-1.7); ALK PHOS 77 U/L (46-116); ALT (SGPT) 74 U/L (14-59); AST (SGOT) 134 U/L (15-37); CREATINE KINASE 103 U/L (26-192); TOTAL BILIRUBIN 0.7 mg/dL (0.2-1.0); TOTAL PROTEIN 6.8 g/dL (6.4-8.2)
[2017-09-09 17:17] LABS: NT-PRO BNP 4434 pg/mL (0-449)
[2017-09-09] MEDS: HEPARIN for IV BOLUS 10,000 UNIT/10 ML VIAL. IV (18:18)
[2017-09-09] MEDS: HEPARIN 25,000UTS/500ML PREMIX 500 ML IV (18:24)
[2017-09-09 18:42] LABS: POC GLUCOSE 310 mg/dL (70-99)
[2017-09-09] MEDS ORDERED: PROCHLORPERAZINE 10 MG/2 ML VIAL. IV (18:45)
[2017-09-09] MEDS ORDERED: HYDROmorphone 2 MG/ML VIAL IV (18:45)
[2017-09-09] MEDS ORDERED: LIDOCAINE 1% PF 2 ML VIAL. ID (18:45)
[2017-09-09] MEDS ORDERED: MORPHINE SULFATE 2 MG/ML DISP.SYRIN. IV (18:45)
[2017-09-09] MEDS ORDERED: fentaNYL PF VIAL 100 MCG/2 ML VIAL IV ×3 (18:45)
[2017-09-09] MEDS ORDERED: ONDANSETRON PF 4 MG/2 ML VIAL. IV (18:45)
[2017-09-09] MEDS: IV NORMAL SALINE 1000ML BAG 1,000 ML IV (19:08)
[2017-09-09] MEDS: INSULIN REGULAR 100 UNIT/ML 10ML VIAL. IV (19:09)
[2017-09-09] MEDS ORDERED: THROMBIN TOPICAL 20,000 UNIT SPRAY.SYRN KIT TP (19:17)
[2017-09-09] MEDS ORDERED: IOHEXOL 300 MG/ML 100ML VIAL. (19:17)
[2017-09-09] MEDS ORDERED: GELATIN MUCOSAL POWDER. (19:17)
[2017-09-09] MEDS ORDERED: fentaNYL PF VIAL 100 MCG/2 ML VIAL (19:27)
[2017-09-09] MEDS ORDERED: LIDOCAINE 2% PF Vial for OR 5 ML VIAL. ×2 (19:27)
[2017-09-09] MEDS ORDERED: PROPOFOL 20 ML IV ×2 (19:27)
[2017-09-09] MEDS ORDERED: DEXAMETHASONE SOD PHOS 20 MG/5 ML VIAL. (19:27)
[2017-09-09] MEDS ORDERED: ONDANSETRON PF 4 MG/2 ML VIAL. (19:27)
[2017-09-09] MEDS ORDERED: PHENYLEPHRINE in 0.9% NACL PF 1 MG/10 ML SYRINGE. IV (19:29)
[2017-09-09] MEDS ORDERED: HEPARIN for IV BOLUS 10,000 UNIT/10 ML VIAL. ×3 (19:59→21:09)
[2017-09-09] MEDS ORDERED: SEVOFLURANE 61 TO 120 MINUTES. IH (20:00)
[2017-09-09] MEDS: SURGICEL FIBRILLAR 1X2 EACH. (20:12)
[2017-09-09] MEDS: HEPARIN SODIUM 5,000 UNIT in IV NORMAL SALINE 500ML BAG 500 ML IRR (20:12)
[2017-09-09] MEDS ORDERED: ePHEDrine PF IN SALINE 50 MG/5 ML DISP.SYRIN IV (20:20)
[2017-09-09] MEDS ORDERED: PHENYLEPHRINE 10 MG/ML VIAL. (20:23)
[2017-09-09 20:57] LABS: POC GLUCOSE 194 mg/dL (70-99)
[2017-09-09] MEDS: IV RINGERS,LACTATED 1000ML 1,000 ML IV (22:15)
[2017-09-10] MEDS ORDERED: HEPARIN for IV BOLUS 10,000 UNIT/10 ML VIAL. IV ×2
[2017-09-10] MEDS: HEPARIN 25,000UTS/500ML PREMIX 500 ML IV (00:15)
[2017-09-10 04:08] LABS: HEMATOCRIT 30.2 % (36.0-47.0); HEMOGLOBIN 9.8 g/dL (12.0-15.5); MEAN CORPUSCULAR HEMOGLOBIN 32 pg (25-35); MEAN CORPUSCULAR HGB CONC 33 g/dL (31-37); MEAN CORPUSCULAR VOLUME 97 fL (79-100); PLATELET COUNT 158 x10^3/uL (140-400); RED BLOOD COUNT 3.12 x10^6/uL (3.50-5.40); RED CELL DISTRIBUTION WIDTH 15.4 % (11.5-14.5); WHITE BLOOD COUNT 14.7 x10^3/uL (4.0-11.0)
[2017-09-10 04:16] LABS: UNFRACTIONATED HEPARIN TESTING > 1.10 IU/mL (0.30-0.70)
[2017-09-10] MEDS ORDERED: ACETAMINOPHEN 325 MG TABLET. PO (07:15)
[2017-09-10] MEDS: INSULIN ASPART 300 UNITS/3 ML INSULN.PEN SQ ×3 (07:30→16:23)
[2017-09-10] MEDS: PANTOPRAZOLE 40 MG TABLET.DR. PO (07:30)
[2017-09-10 07:59] LABS: HEMATOCRIT 27.9 % (36.0-47.0); HEMOGLOBIN 8.9 g/dL (12.0-15.5); MEAN CORPUSCULAR HEMOGLOBIN 31 pg (25-35); MEAN CORPUSCULAR HGB CONC 32 g/dL (31-37); MEAN CORPUSCULAR VOLUME 98 fL (79-100); PLATELET COUNT 170 x10^3/uL (140-400); RED BLOOD COUNT 2.83 x10^6/uL (3.50-5.40); RED CELL DISTRIBUTION WIDTH 15.5 % (11.5-14.5); WHITE BLOOD COUNT 17.9 x10^3/uL (4.0-11.0)
[2017-09-10] MEDS: POTASSIUM CHLORIDE 10 MEQ TABLET.ER. PO (08:00)
[2017-09-10] MEDS: CARVEDILOL 3.125 MG TABLET. PO ×2 (08:00→16:23)
[2017-09-10] MEDS: FUROSEMIDE 40 MG TABLET. PO (09:00)
[2017-09-10] MEDS: LOSARTAN POTASSIUM 25 MG TABLET. PO (09:00)
[2017-09-10] MEDS: ALLOPURINOL 100 MG TABLET. PO (09:00)
[2017-09-10] MEDS: predniSONE 10 MG TABLET PO (09:00)
[2017-09-10] MEDS: LEVOTHYROXINE 50 MCG TABLET PO (09:00)
[2017-09-10] MEDS ORDERED: NON FORMULARY ITEM (Lutein 20 MG) PO (09:00)
[2017-09-10 09:34] LABS: INR 1.6 (0.8-1.1); PROTHROMBIN TIME PATIENT 18.3 SEC (11.7-14.0); UNFRACTIONATED HEPARIN TESTING > 1.10 IU/mL (0.30-0.70)
[2017-09-10 09:41] LABS: POC GLUCOSE 325 mg/dL (70-99)
[2017-09-10] MEDS: NOREPINEPHRIN PREMIX 250 ML IV ×2 (10:34→17:01)
[2017-09-10] MEDS: IV NORMAL SALINE 1000ML BAG 1,000 ML IV ×2 (10:35→21:27)
[2017-09-10] MEDS: IPRATRPIUM/ALBUTEROL 0.5/2.5MG 3 ML NEBU. NEB ×3 (10:51→20:48)
[2017-09-10 11:22] LABS: FECAL OB PT POSITIVE (NEG); NEG OBC FOB NEG; POS OBC FOB POS
[2017-09-10] MEDS ORDERED: MIDAZOLAM HCL/PF 5 MG/5 ML VIAL. (12:07)
[2017-09-10 12:28] LABS: IMMEDIATE SPIN CROSSMATCH 1 2
[2017-09-10] MEDS: MIDAZOLAM HCL/PF 5 MG/5 ML VIAL. IV ×3 (12:33→12:37)
[2017-09-10] MEDS: PANTOPRAZOLE SODIUM IV DRIP 80 MG in IV NORMAL SALINE 100ML 100 ML IV ×2 (13:27→21:27)
[2017-09-10 17:31] LABS: MEAN CORPUSCULAR HEMOGLOBIN 30 pg (25-35); MEAN CORPUSCULAR HGB CONC 32 g/dL (31-37); MEAN CORPUSCULAR VOLUME 93 fL (79-100); PLATELET COUNT 168 x10^3/uL (140-400); RED CELL DISTRIBUTION WIDTH 16.6 % (11.5-14.5); WHITE BLOOD COUNT 25.4 x10^3/uL (4.0-11.0)
[2017-09-10] MEDS: DONEPEZIL HCL 10 MG TABLET. PO (20:38)
[2017-09-10] MEDS: SIMVASTATIN 20 MG TABLET PO (20:38)
[2017-09-10 20:53] LABS: POC GLUCOSE 327 mg/dL (70-99)
[2017-09-10] MEDS: HYDROCORTISONE SOD SUCC/PF 100 MG/2 ML VIAL. IV (20:59)
[2017-09-10] MEDS: INSULIN DETEMIR 300 UNITS/3 ML INSULN.PEN. SQ (21:00)
[2017-09-11 01:29] LABS: HEMATOCRIT 43.1 % (36.0-47.0); HEMOGLOBIN 13.5 g/dL (12.0-15.5); MEAN CORPUSCULAR HEMOGLOBIN 30 pg (25-35); MEAN CORPUSCULAR HGB CONC 31 g/dL (31-37); MEAN CORPUSCULAR VOLUME 98 fL (79-100); PLATELET COUNT 152 x10^3/uL (140-400); RED BLOOD COUNT 4.42 x10^6/uL (3.50-5.40); RED CELL DISTRIBUTION WIDTH 18.7 % (11.5-14.5); WHITE BLOOD COUNT 30.2 x10^3/uL (4.0-11.0)
[2017-09-11] MEDS: NOREPINEPHRIN PREMIX 250 ML IV (02:32)
[2017-09-11 05:36] LABS: BASO # 0.1 x10^3/uL (0.0-0.2); BASO % 0 % (0-3); EOS % 0 % (0-3); HEMATOCRIT 39.5 % (36.0-47.0); HEMOGLOBIN 12.6 g/dL (12.0-15.5); LYMPH # 1.9 x10^3/uL (1.0-4.8); LYMPH % 8 % (24-48); MEAN CORPUSCULAR HEMOGLOBIN 31 pg (25-35); MEAN CORPUSCULAR HGB CONC 32 g/dL (31-37); MEAN CORPUSCULAR VOLUME 96 fL (79-100); MONO % 8 % (0-9); NEUT # 21.6 x10^3uL (1.8-7.7); NEUT % 84 % (31-73); PLATELET COUNT 164 x10^3/uL (140-400); RED BLOOD COUNT 4.12 x10^6/uL (3.50-5.40); RED CELL DISTRIBUTION WIDTH 18.5 % (11.5-14.5); WHITE BLOOD COUNT 25.6 x10^3/uL (4.0-11.0)
[2017-09-11] MEDS: LEVOTHYROXINE 50 MCG TABLET PO (05:52)
[2017-09-11 06:08] LABS: ADD MAN DIFF? YES
[2017-09-11 06:14] LABS: ALBUMIN 2.7 g/dL (3.4-5.0); ALK PHOS 36 U/L (46-116); ALT (SGPT) 206 U/L (14-59); ANION GAP 27 (6-14); AST (SGOT) 494 U/L (15-37); BLOOD UREA NITROGEN 87 mg/dL (7-20); BUN/CREATININE RATIO 22 (6-20); CALCIUM 8.5 mg/dL (8.5-10.1); CHLORIDE 102 mmol/L (98-107); CREATININE 3.9 mg/dL (0.6-1.0); GFR 10.9; GLUCOSE 376 mg/dL (70-99); SODIUM 140 mmol/L (136-145); TOTAL BILIRUBIN 0.9 mg/dL (0.2-1.0); TOTAL PROTEIN 5.4 g/dL (6.4-8.2)
[2017-09-11 06:17] LABS: CARBON DIOXIDE 11 mmol/L (21-32); POTASSIUM 6.6 mmol/L (3.5-5.1)
[2017-09-11] MEDS: CARVEDILOL 3.125 MG TABLET. PO (06:52)
[2017-09-11] MEDS: LOSARTAN POTASSIUM 25 MG TABLET. PO (06:52)
[2017-09-11] MEDS: POTASSIUM CHLORIDE 10 MEQ TABLET.ER. PO (06:52)
[2017-09-11] MEDS: ALLOPURINOL 100 MG TABLET. PO (06:53)
[2017-09-11] MEDS: FUROSEMIDE 40 MG TABLET. PO (06:53)
[2017-09-11] MEDS: HYDROCORTISONE SOD SUCC/PF 100 MG/2 ML VIAL. IV (07:23)
[2017-09-11] MEDS: PANTOPRAZOLE SODIUM IV DRIP 80 MG in IV NORMAL SALINE 100ML 100 ML IV (07:23)
[2017-09-11] MEDS: INSULIN ASPART 300 UNITS/3 ML INSULN.PEN SQ (07:24)
[2017-09-11 07:30] LABS: POC GLUCOSE 268 mg/dL (70-99)
[2017-09-11 07:56] LABS: % BANDS 3 % (0-9); % LYMPHS 4 % (24-48); % MONOS 6 % (0-10); % SEGS 87 % (35-66); NUCLEATED RBC 3; PLT ESTIMATE ADEQUATE (ADEQUATE)
[2017-09-11 07:57] LABS: ANISOCYTOSIS PRESENT
[2017-09-11] MEDS: IPRATRPIUM/ALBUTEROL 0.5/2.5MG 3 ML NEBU. NEB (08:05)
[2017-09-11 08:12] LABS: LACTIC ACID 11.8 mmol/L (0.4-2.0)
[2017-09-11] MEDS: LEVOTHYROXINE SODIUM 25 MCG in IV NORMAL SALINE 50ML 5 ML IVP (09:05)
[2017-09-11] MEDS: MORPHINE SULFATE 2 MG/ML DISP.SYRIN. IV ×3 (10:13→20:40)
[2017-09-11] MEDS: SIMVASTATIN 20 MG TABLET PO (21:00)
== END 2017-09-11 23:54 | DRG 270 ==
LOC: ER 15:36 → 5 NORTH 18:13 → 1 WEST ICU 23:48
PROC: 04CD0ZZ Extirpation of Matter from Left Common Iliac Artery, Open Approach (ICD-10-PCS; principal; 2017-09-09 19:36)
PROC: 04CL0ZZ Extirpation of Matter from Left Femoral Artery, Open Approach (ICD-10-PCS; 2017-09-09 19:36)
PROC: 04CN0ZZ Extirpation of Matter from Left Popliteal Artery, Open Approach (ICD-10-PCS; 2017-09-09 19:36)
PROC: 04CQ0ZZ Extirpation of Matter from Left Anterior Tibial Artery, Open Approach (ICD-10-PCS; 2017-09-09 19:36)
PROC: 0W3P8ZZ Control Bleeding in Gastrointestinal Tract, Via Natural or Artificial Opening Endoscopic (ICD-10-PCS; 2017-09-09 19:36)
PROC: 30233N1 Transfusion of Nonautologous Red Blood Cells into Peripheral Vein, Percutaneous Approach (ICD-10-PCS; 2017-09-09 19:36)
PROC: 0J8P0ZZ Division of Left Lower Leg Subcutaneous Tissue and Fascia, Open Approach (ICD-10-PCS; 2017-09-09 19:36)
DX: I74.3 Embolism and thrombosis of arteries of the lower extremities (principal); K55.21 Angiodysplasia of colon with hemorrhage; N17.9 Acute kidney failure, unspecified; D68.9 Coagulation defect, unspecified; E11.22 Type 2 diabetes mellitus with diabetic chronic kidney disease; E11.51 Type 2 diabetes mellitus with diabetic peripheral angiopathy without gangrene; I95.9 Hypotension, unspecified; E11.65 Type 2 diabetes mellitus with hyperglycemia; I13.0 Hypertensive heart and chronic kidney disease with heart failure and stage 1 through stage 4 chronic kidney disease, or unspecified chronic kidney disease; I50.22 Chronic systolic (congestive) heart failure; M62.82 Rhabdomyolysis; I48.0 Paroxysmal atrial fibrillation; N18.3 Chronic kidney disease, stage 3 (moderate); I27.20 Pulmonary hypertension, unspecified; E78.00 Pure hypercholesterolemia, unspecified; F03.90 Unspecified dementia, unspecified severity, without behavioral disturbance, psychotic disturbance, mood disturbance, and anxiety; I25.10 Atherosclerotic heart disease of native coronary artery without angina pectoris; J44.9 Chronic obstructive pulmonary disease, unspecified; Z51.5 Encounter for palliative care; Z66 Do not resuscitate; Z79.4 Long term (current) use of insulin; Z79.82 Long term (current) use of aspirin; Z87.891 Personal history of nicotine dependence; Z90.710 Acquired absence of both cervix and uterus; Z95.0 Presence of cardiac pacemaker; Z95.1 Presence of aortocoronary bypass graft; F32.9 Major depressive disorder, single episode, unspecified; F41.9 Anxiety disorder, unspecified; Z88.0 Allergy status to penicillin; Z88.8 Allergy status to other drugs, medicaments and biological substances; E78.5 Hyperlipidemia, unspecified; I25.2 Old myocardial infarction; Z71.89 Other specified counseling; D50.0 Iron deficiency anemia secondary to blood loss (chronic)
CPT/HCPCS: 36415; 51702; 71045; 73502; 80053; 82274; 82550; 82962; 83605; 83735; 83880; 85007; 85025; 85027; 85520; 85610; 85730; 86850; 86900; 86901; 86920; 93005; 93923; 94640; 96361; 96365; 96375; 99291-25; C1757; C9113; G0500; J0690; J1100; J1644; J1720; J1815; J2250; J2270; J2370; J2405; J2704; J3010; J7030; J7040; J7120; J7620; P9016; Q9967